=== PATIENT | male | born 1955 | race Caucasian/White ===

== ENCOUNTER 2025-03-04 02:55 | Inpatient (IN) | payer MEDICARE, OTHER, SELFPAY ==
[2025-03-04] VITALS (38 sets, daily range): BP systolic 148–189; BP diastolic 71–116; PULSE 80–101; RESP 14–31; TEMP 36.5–36.9; O2SAT 92–98; BMI 26.6
--- NOTE | ~2025-03-04 | CT_ITS ---
CTA chest PE protocol Ordering provider: Regina Reid APRN History: 69 years Male with . SOB, chest pain, elevated D-Dimer . Comparison: None. Technique: CT angiogram chest was performed following timed intravenous injection of contrast. Thin s lice axial images and reformatted coronal images were obtained. Three dimensional reformatted images of the chest were also obtained using a [employer] workstation. . Automated exposure control and iterati ve reconstruction technique were employed. The dose-length product was 987.51 mGy-cm. 100 mL Omnipaqu e 350 was given IV. Findings: PULMONARY ARTERIES: Lucencies seen in the right pulmonary artery subsegmental branches may be artifac tual but subsegmental thrombi cannot be excluded. Follow-up advised.. VISUALIZED THORACIC INLET: Normal. MEDIASTINUM: Aorta/coronary arteries: Mild atheromatous disease. Heart/other: The heart is not enlarged. Lymph nodes: Precarinal lymph nodes with the largest measures 1.3 cm. Right hilar lymph node is seen measuring 1.7 cm. LUNGS: Minimal atelectatic changes or focal pneumonia seen in the left upper lobe anteriorly and right lower lobe medially. Otherwise, No pulmonary nodules or masses. No effusions. No pneumothorax. VISUALIZED UPPER ABDOMEN: Large sliding hiatus hernia. Status post cholecystectomy. Otherwise, the vi sualized upper abdomen is normal. MUSCULOSKELETAL: Soft tissues: The superficial soft tissues are normal. Bones: Age appropriate degenerative changes of the spine. Old healed fractures seen in the left hemit horax. 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 IMPRESSION: 1. defects seen in the subsegmental branches in the right lower lobe area most likely artifacts. pu lmonary embolism cannot be excluded although this likely. 2. Focal areas of atelectasis versus pneumonia in the left upper lobe anteriorly and right lower lob e medially. 3. Large sliding hiatus hernia. Reviewed, dictated and finalized at location A. IMPRESSION: 1. defects seen in the subsegmental branches in the right lower lobe area mos t likely artifacts. pulmonary embolism cannot be excluded although this likely. 2. Focal areas of atelectasis versus pneumonia in the left upper lobe anterior ly and right lower lobe medially. 3. Large sliding hiatus hernia.
--- NOTE | ~2025-03-04 | US_ITS ---
EXAMINATION:US venous doppler LE BI INDICATION:Elevated d-dimer. Possible pulmonary embolism. TECHNIQUE: Multiple grayscale, color flow and Doppler images of the right and left lower extremity de ep venous systems were obtained and reviewed. COMPARISON:No prior studies for comparison. FINDINGS: The common femoral, superficial femoral and popliteal veins demonstrate normal respiratory variation, augmentation and compressibility. Color flow is also seen within the posterior tibial, pe roneal, greater saphenous and profunda veins. IMPRESSION: 1: No lower extremity deep venous thrombosis. Reviewed, dictated and finalized at location A.
--- NOTE | ~2025-03-04 | XR_ITS ---
CHEST RADIOGRAPH CLINICAL HISTORY: sob . COMPARISON: None available TECHNIQUE: Single portable view of the chest. FINDINGS The cardiomediastinal silhouette is unremarkable. The lungs are clear. IMPRESSION: No focal infiltrate or effusion. Reviewed, dictated and finalized at location A.
--- NOTE | 2025-03-04 03:02 | ECG_ITS ---
Test Date: 2025-03-04 02:59:48 Measurements Intervals [place] Rate: 83 P: 74 MD: 188 QRS: -22 QRSD: 128 T: 28 QT: 375 QTc: 442 Interpretive Statements SINUS RHYTHM SEPTAL MYOCARDIAL INFARCTION , OF INDETERMINATE AGE [40+ ms Q WAVE IN V1/V2] No previous ECG available for comparison Electronically Signed On 03-04-2025 15:00:58 CDT by Robert Escobar M.D.
[2025-03-04 03:20] LABS: Basophils Absolute Auto 0.1 K/mm3 (0.0-0.1); Basophils Percent Auto 1.2 % (0.2-1.2); Eosinophils Absolute Auto 0.4 K/mm3 (0-0.3); Eosinophils Percent Auto 6.7 % (0-4.4); Hematocrit 35.6 % (42.0-52.0); Hemoglobin 11.2 g/dL (14.0-18.0); Immature Granulocyte Absolute 0.04 K/mm3 (0.00-0.031); Immature Granulocyte Percent A 0.7 % (0-0.5); Lymphocytes Absolute Auto 0.55 K/mm3 (0.9-3.2); Lymphocytes Percent Auto 9.4 % (18.3-44.2); Mean Corpuscular HGB Conc 31.5 g/dl (32-36); Mean Corpuscular Hemoglobin 26.6 pg (26-34); Mean Corpuscular Volume 84.6 fl (80-100); Mean Platelet Volume 8.6 fl (7.4-10.4); Monocytes Percent Auto 16.2 % (2.6-8.5); Neutrophils Absolute Auto 3.9 K/mm3 (1.3-6.7); Neutrophils Percent Auto 65.8 % (45.5-73.1); Platelet Count Result 223 k/mm3 (150-375); Red Blood Count 4.21 M/mm3 (4.6-6.20); Red Cell Distribution Width 14.3 % (11.5-14.5); White Blood Count 5.9 K/mm3 (4.5-10.0)
[2025-03-04] MEDS: ASPIRIN 81 MG CHEWABLE TABLET 324 MG PO (03:25)
[2025-03-04 03:28] LABS: Alanine Aminotransferase 27 U/L (6-50); Alkaline Phosphatase 81 U/L (38-126); Anion Gap 3 mmol/L (4-12); Aspartate Amino Transferase 47 U/L (17-59); Bilirubin,Total 0.9 mg/dL (0.2-1.3); Blood Urea Nitrogen 14 mg/dL (9-20); Calcium 8.8 mg/dL (8.4-10.2); Carbon Dioxide 33 mmol/L (22-30); Chloride 99 mmol/L (98-107); Estimated CRCL calculation 112 ml/min; Estimated Glomerular Filt Rate > 60; Glucose 96 mg/dL (65-110); Lipase 136 U/L (23-300); Potassium 3.2 mmol/L (3.4-5.0); Sodium 135 mmol/L (137-145)
[2025-03-04 03:34] LABS: Partial Thromboplastin Time 25.5 Seconds (22.3-36.8); Prothrombin Time 14.1 Seconds (11.1-14.7)
[2025-03-04 03:40] LABS: Troponin I < 0.012 ng/mL (0.000-0.034)
[2025-03-04 03:54] LABS: Influenza A QL RT-PCR Negative (Negative); Influenza B QL RT-PCR Negative (Negative); RSV RNA, RT-PCR Negative (Negative); SARS-CoV-2 RNA PCR Negative (Negative)
--- NOTE | 2025-03-04 05:46 | PC.NURSE ---
Report received from IVETT Russo. Assumed care of patient at this time.
[2025-03-04 07:03] LABS: Troponin I < 0.012 ng/mL (0.000-0.034)
--- OUTSIDE RECORDS SUMMARY | 2025-03-04 07:33 | XMS_ITS | CONTINUITY OF CARE DOCUMENT ---
Author Name jed adkins Address Unknown Organization [facility] Address [address] [place] [address] Phone [phone] Care Team Providers Care Vessel Scrapper Helper Name Role Phone Madina RICE, Lakeshia Haro Unavailable ANATOLY RICE, ABIGAIL Unavailable Unavailable JUAN MIGUEL RICE, WENDY Martin Unavailable [phone] INSURANCE PROVIDERS Payer name Policy type / Coverage type [place] [employer] party ID [place] [employer] Medicare [id number] [employer] Other H [id number]
--- OUTSIDE RECORDS SUMMARY | 2025-03-04 07:33 | XMS_ITS | Clinical Summary ---
Author Organization [facility] Address [address] [place] [address] Care Team Providers Care Family Program Specialist Name Role Phone Chava Cruz MD Primary Care Provider [phone] Source Comments [facility],non-owned Affiliates and Associated Physician Practices is amultiple site organization consisting of ambulatory clinics and hospital sitesin [place], [place], [place] and [place]. This disclosure is being madepursuant to the Care Everywhere program and may not contain all information available regarding this patient. Last updated 18.[facility] Allergies No known active allergies Medications * Be aware that medications may not be up to date on this document. Alwaysverify current medications with the patient. lisinopril (PRINIVIL; ZESTRIL) 10 MG tablet Take 10 mg by mouth once daily Active pantoprazole EC (PROTONIX) 40 MG tablet Take 40 mg by mouth once daily Active budesonide-form oterol (SYMBICORT) 160-4.5 MCG/ACT inhalerIndicati ons:Asthma Inhale 2 puffs by mouth 2 times daily Reasons: Asthma Active umeclidinium (INCRUSE ELLIPTA) 62.5 MCG/INH inhalerIndicati ons:Chronic Obstructive Pulmonary Disease Inhale 1 puff by mouth once daily Reasons: Chronic Obstructive Lung Disease Active amLODIPine (NORVASC) 5 MG tablet Take 5 mg by mouth once daily Active oxyCODONE (OXY-IR) 5 MG capsule Take 1-2 capsules by mouth every 4 hours as needed for Pain 51 capsule 0 Active acetaminophen (TYLENOL) 500 MG tablet Take 2 tablets by mouth Every 6 Hours (03,09,15,21) Maximum allowable Acetaminophen amount = 4 Grams (4000 mg) / 24 hours. 0 Active bacitracin (BACITRACIN) 500 UNIT/GM ointment Apply to affected area 2 times daily 28 g 0 Active umeclidinium (INCRUSE ELLIPTA) 62.5 MCG/INH inhaler Take 62.5 Inhalers by mouth once daily Active Active Problems Problem Noted Date Diagnosed Date Respiratory insufficiency 07/09/2020 Acute pain 07/09/2020 Traumatic pneumothorax 07/07/2020 Multiple closed fractures of ribs of both sides 07/06/2020 Immunizations Immunization Administration Dates Next Due INFLUENZA VACCINE, HIGH-DOSE , QUADR. (FLUZONE HIGH-DOSE QUADRIVALENT; 65Y+), 0.7 ML (HD-IIV4) 07/07/2020 PNEUMOCOCCAL PPSV23 07/07/2020 Social History Tobacco Use Types Packs/Day Years Used Date Smoking Tobacco: Never Smokeless Tobacco: Never Alcohol Use Standard Drinks/Week Comments Yes 12 (1 standard drink = 0.6 oz pu re alcohol) Sex and Gender Information Value Date Recorded Sex Assigned at Not on file Legal Sex Male 2:36 AM CDT Gender Identity Not on file Sexual Orientation Not on file Last Filed Vital Signs Vital Sign Reading Time Taken Comments Blood Pressure 153/80 07/29/2020 2:46 PM CDT Pulse 87 07/29/2020 2:46 PM CDT Temperature 36.1 C (97 F) 07/29/2020 2:46 PM CDT Respiratory Rate 18 07/29/2020 2:46 PM CDT Oxygen Saturation 91% 07/29/2020 2:46 PM CDT Inhaled Oxygen Concentration 24% 07/11/2020 1 1:00 AM CDT Weight 96.2 kg (212 lb) 07/29/2020 2:46 PM CDT Height 188 cm (6' 2) 07/29/2020 2:46 PM CDT Body Mass Index 27.22 07/29/2020 2:46 PM CDT Plan of Treatment Health Maintenance Due Date Last Done Comments COLOGUARD (AGES 45-75) - COLON CA SCREENING 1953 COLON MONITORING 1953 COLONOSCOPY - COLON CA SCREENING 1953 CT COLONOGRAPHY - COLON CA SCREENING 1953 Colorectal Cancer Screening 1953 FIT - COLON CA SCREENING 1953 FLEX SIG - COLON CA SCREENING 1953 LIPID TESTING 1953 HEPATITIS C SCREENING 06/30/1971 DTAP/TDAP/TD VACCINES (1 - Tdap) 1972 ZOSTER VACCINE (1 of 2) 2003 PNEUMOCOCCAL VACCINE 50+ (2 of 2 - PCV) 07/07/2021 07/07/2020 SCREENING FOR DIABETES 07/06/2023 07/06/2020 COVID-19 VACCINE (1 - season) 2024 DEPRESSION SCREENING 10/10/2024 INFLUENZA VACCINE (Season Ended) 2025 07/07/2020, 07/12/2018, 07/25/2017, Additional history exists Respiratory Syncytial Virus (RSV) Vaccine Pt: or over 60 yrs (1 - 1-dose 75+ series) 2028 HEPATITIS B VACCINE Aged Out No longe r eligible based on patient's age to complete this topic HIB VACCINE Aged Out No longer eligi ble based on patient's age to complete this topic HPV VACCINE Aged Out No longer eligi ble based on patient's age to complete this topic MENINGOCOCCAL (Group B) VACCINE SHARED DECISION-MAKING Aged Out No longer eligible based on patient's age to complete this topic MENINGOCOCCAL GROUPS A/C/Y/W VACCINE Aged Out No longer eligible based on patient's age to complete this topic Procedures Procedure Name Priority Date/Time Associated Diagnosis Comments COMPREHENSIVE METABOLIC PANEL STAT 07/06/2020 3:30 AM CDT from Last 3 Months or Most Recently Relevant to Health Maintenance Results * (ABNORMAL) COMPREHENSIVE METABOLIC PANEL (07/06/2020 3:30 AM CDT) BUN 12 7 - 26 mg/dL 07/06/2020 4:45 AM CDT [facility] Creatinine 0.7 0.6 - 1.2 mg/dL 07/06/2020 4:45 AM CDT [facility] Sodium 135(L) 136 - 145 mmol/L 07/06/2020 4:45 AM CDT [facility] Potassium 4.4 3.5 - 4.5 mmol/L 07/06/2020 4:45 AM [facility] Comment:Hemolysis detected i n this specimen. Hemolysis is known to cause elevations in this analyte. Caution should be exercised in the interpretation of this result. Recommend repeat testing if clinically indicated. Chloride 99 98 - 107 mmol/L 07/06/2020 4:45 AM [facility] CO2 24 22 - 29 mmol/L 07/06/2020 4:45 AM [facility] Glucose 110 70 - 115 mg/dL 07/06/2020 4:45 AM [facility] Calcium 7.8(L) 8.4 - 10.2 mg/dL 07/06/2020 4:45 AM [facility] Protein Total 6.3 6.0 - 8.3 g/dL 07/06/2020 4:45 AM [facility] Comment:Hemolysis detected i n this specimen. Hemolysis is known to cause elevations in this analyte. Caution should be exercised in the interpretation of this result. Recommend repeat testing if clinically indicated. Albumin 3.7 3.4 - 5.0 g/dL 07/06/2020 4:45 AM [facility] Bilirubin Total 2.5(H) 0.2 - 1.2 mg/dL 07/06/2020 4:45 AM [facility] Alkaline Phosphatase 89 40 - 150 Units/L 07/06/2020 4:45 AM [facility] ALT 36 0 - 55 Units/L 07/06/2020 4:45 AM [facility] AST 61(H) 5 - 34 Units/L 07/06/2020 4:45 AM [facility] Comment:Hemolysis detected i n this specimen. Hemolysis is known to cause elevations in this analyte. Caution should be exercised in the interpretation of this result. Recommend repeat testing if clinically indicated. Anion Gap 16 8 - 18 07/06/2020 4:45 AM [facility] BUN/Creatinine Ratio 17 7 - 23 07/06/2020 4:45 AM [facility] Osmolality Calculated 280 270 - 300 mOsm/kg 07/06/2020 4:45 AM [facility] Albumin/Globulin Ratio 1.4 1.1 - 2.3 07/06/2020 4:45 AM [facility] eGFR >60 >60 mL/min/1. 73 m2 07/06/2020 4:45 AM CDT [facility] Blood BLOOD SPECIMEN / Unknown Venipuncture / Unknown 07/06/2020 3:30 AM CDT 07/06/2020 4:12 AM CDT Chidi Quezada MD LAB - CHEMISTRY ORDERABLES Final Result Performing Organization Address [facility]/State/ZIP Co de Phone Number [facility] [address] [place] [address], [facility] [phone] from Last 3 Months or Most Recently Relevant to Health Maintenance Insurance [employer] MEDICARE Advance Directives * Full Code (Latest Code Status on File) Date Activated Date Inactivated Comments 07/06/2020 11:20 AM 07/12/2020 2:07 PM Care Teams Family Program Specialist Relationship Specialty Start Date End Date Chava Cruz MD PCP - General Internal Medicine 07/06/20
--- OUTSIDE RECORDS SUMMARY | 2025-03-04 07:33 | XMS_ITS | Clinical Summary ---
Author Organization [facility] Address [address] [place] [address] Phone Care Team Providers Care Power Electronics Research Engineer Name Role Phone Chava Cruz MD Primary Care Provider Allergies No known active allergies Medications umeclidinium (INCRUSE ELLIPTA) 62.5 mcg/actuation Disk with Device Take 62.5 Inhalers by mouth. Active pantoprazole (PROTONIX) 40 mg Tablet, Delayed Release (E.C.) pantoprazole 40 mg tablet,delayed release Active lisinopril-hydr oCHLOROthiazide (ZESTORETIC) 20-25 mg tablet lisinopril 20 mg-hydrochloroth iazide 25 mg tablet Active amLODIPine (NORVASC) 5 mg tablet amlodipine 5 mg tablet Active budesonide-form oteroL (SYMBICORT) 160-4.5 mcg/actuation HFA Aerosol Inhaler Take 2 Puffs by inhalation. 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 Gender Identity Not on file Sexual Orientation Not on file Last Filed Vital Signs Vital Sign Reading Time Taken Comments Blood Pressure 163/89 09/17/2020 1:26 PM LEVERS LACE MACHINE OPERATOR Pulse 84 09/17/2020 1:26 PM LEVERS LACE MACHINE OPERATOR Temperature - - Respiratory Rate 18 09/17/2020 1:26 PM LEVERS LACE MACHINE OPERATOR Oxygen Saturation 95% 09/17/2020 1:26 PM LEVERS LACE MACHINE OPERATOR Inhaled Oxygen Concentration - - Weight 96.6 kg (213 lb) 09/15/2020 2:24 PM LEVERS LACE MACHINE OPERATOR Height 188 cm (6' 2) 09/15/2020 2:24 PM LEVERS LACE MACHINE OPERATOR Body Mass Index 27.35 09/15/2020 2:24 PM LEVERS LACE MACHINE OPERATOR Plan of Treatment Health Maintenance Due Date Last Done Comments DTAP/TDAP/TD VACCINES (1 - Tdap) 1972 COLORECTAL SCREENING 1998 Colorectal Cancer Screening 1998 FIT-DNA Q 3 years 1998 FIT/FOBT Q 1 year 1998 Flex Sig/CT Colonography Q 5 years 1998 ZOSTER VACCINE (1 of 2) 2003 RSV VACCINE (60+ or ) (1 - Risk 60-74 years 1-dose series) 2013 INFLUENZA VACCINE (#1) 2024 0, 07/12/2018, 07/25/2017, Additional history exists PNEUMOCOCCAL VACCINE 50+ YEARS Completed 1 11/17/2019, 07/07/2020, 08/16/2019 Insurance MEDICARE PART A AND B [facility] Care Teams Power Electronics Research Engineer Relationship Specialty Start Date End Date Chava Cruz MD [address] [place] [address] PCP - General Internal Medicine 09/15/20
--- NOTE | 2025-03-04 07:46 | ED.GENADULT ---
HPI - General Adult General Chief complaint: Shortness of Breath/Dyspnea Stated complaint: SOB x 2D/productive cough Time Seen by Provider: 03/04/25 06:56 History of Present Illness HPI narrative: 69-year-old male with history of asthma COPD with no history of smoking presents the ED for evaluation of worsening cough and congestion reminiscent of recent pneumonias. Patient states that in December he was diagnosed with COVID and pneumonia and was treated at [facility]. Patient states over the last 36 hours he has had worsening shortness of breath. At time of my evaluation patient does have increased workup breathing. patient denies any chest pain with this. Patient does report a remote history of pneumonia. Related Data Home Medications ?Medication ?Instructions ?Recorded ?Confirmed ?Last Taken ?Type albuterol sulfate 90 mcg/actuation 2 puff inhalation Q4-6H PRN 03/04/25 03/04/25 03/03/25 History aerosol inhaler shortness of breath or wheezing alfuzosin 10 mg tablet,extended 10 mg PO DAILY 03/04/25 03/04/25 03/03/25 History release 24 hr amlodipine 5 mg tablet 5 mg PO DAILY 03/04/25 03/04/25 03/03/25 History budesonide 160 mcg-glycopyr 9 2 inh inhalation BID 03/04/25 03/04/25 03/03/25 History mcg-formot 4.8 mcg/actuation HFA inhaler (Breztri Aerosphere) lisinopril 20 1 tablet PO BID 03/04/25 03/04/25 03/03/25 History mg-hydrochlorothiazide 25 mg tablet naproxen sodium 220 mg capsule 440 mg PO ONCE 03/04/25 03/04/25 03/03/25 History (Aleve) pantoprazole 40 mg tablet,delayed 40 mg PO DAILY 03/04/25 03/04/25 03/03/25 History release umeclidinium 62.5 mcg/actuation 1 inh inhalation DAILY 03/04/25 03/04/25 03/03/25 History blister powder for inhalation (Incruse Ellipta) Allergies Allergy/AdvReac Type Severity Reaction Status Date / Time No Known Allergies Allergy Verified 03/04/25 03:02 Review of Systems Review of Systems: All systems reviewed & are unremarkable except as noted in HPI and below PMFSH Past Medical History Medical History (Updated 03/04/25 @ 12:12 by Regina Reid, INSTRUCTIONAL MEDIA SERVICES TECHNICIAN) GERD (gastroesophageal reflux disease) Hypertension COPD (chronic obstructive pulmonary disease) Social History Social History Smoking status: Never smoker Second hand tobacco smoke exposure: No Alcohol intake: current Drinks per week: 10 Substance use: current Substance use type: does not use Do You Feel Safe in your Home?: Yes Lack of Transportation: No Lack of Food: Never True Current Housing: I Have Housing Concerned About Future Housing: No Difficulty Paying Gas/Electric Bills: No Difficulty Paying for Meds: No Currently Unemployed: No Education: Associate Degree Difficulty w/ Childcare or Family Care: No Spiritual care concerns: No Exam Narrative: APPEARANCE: Ill-appearing HEAD: normocephalic, atraumatic. EYES: PERRLA/EOMI, conjunctivae clear. NOSE: Normal no drainage EARS:TMS clear with good light reflex. THROAT: Pharynx clear, no exudate. NECK: Supple. No adenopathy, no masses. RESPIRATORY: Decreased lung sounds bilaterally with expiratory wheeze increased work of breathing CARDIOVASCULAR: Regular rate and rhythm without murmurs rubs or gallops. ABDOMINAL: Soft, nontender, nondistended, normal bowel sounds MUSCULOSKELETAL: Moves all extremities. Strength/ROM intact, No edema, No calf tenderness. NEURO: Alert. Cranial nerves II through XII intact. Good gait. Good coordination SKIN: Warm, dry. Normal Color Course Vital Signs Vital signs: Vital Signs Temperature 97.7 F 03/04/25 02:57 Pulse Rate 91 03/04/25 02:57 Respiratory Rate 28 H 03/04/25 02:57 Blood Pressure 189/93 H 03/04/25 02:57 Pulse Oximetry 98 03/04/25 02:57 Oxygen Delivery Room Air 03/04/25 02:57 Temperature 98.4 F 03/04/25 11:26 Pulse Rate 93 03/04/25 16:02 Respiratory Rate 18 03/04/25 13:26 Blood Pressure 152/87 H 03/04/25 11:26 Pulse Oximetry 95 03/04/25 13:20 Oxygen Delivery Room Air 03/04/25 13:20 Medical Decision Making MDM Narrative Medical decision making narrative: 69-year-old male presents emergency department for evaluation for worsening shortness of breath. Patient is afebrile with no leukocytosis hemoglobin 11.2. INR is 1.0. Patient does have a potassium of 3.2 with no other acute abnormalities on his CMP, patient's troponin is negative. Patient was negative for influenza RSV and for COVID. Patient did have increased expiratory wheeze and was treated with 5 mg of nebulized albuterol along with 125 mg of IV Solu-Medrol. Patient was treated with 5 mg of nebulized albuterol but this does significant wheeze. With the patient and he desaturated down to 87%. Patient states he prefers to be admitted. Patient will be treated with a 2nd dose albuterol. Patient does report some sputum production in morning but not necessarily increased over his baseline sputum production. Case was discussed with hospitalist blood cultures ordered and patient was started on Rocephin and doxycycline. Differential Diagnosis Differential Diagnosis: COVID, RSV, influenza, pneumonia, pneumothorax, COPD exacerbation Vital Signs Vital Signs: Vital Signs Temperature 97.7 F 03/04/25 02:57 Pulse Rate 91 03/04/25 02:57 Respiratory Rate 28 H 03/04/25 02:57 Blood Pressure 189/93 H 03/04/25 02:57 Pulse Oximetry 98 03/04/25 02:57 Oxygen Delivery Room Air 03/04/25 02:57 Temperature 98.4 F 03/04/25 11:26 Pulse Rate 93 03/04/25 16:02 Respiratory Rate 18 03/04/25 13:26 Blood Pressure 152/87 H 03/04/25 11:26 Pulse Oximetry 95 03/04/25 13:20 Oxygen Delivery Room Air 03/04/25 13:20 Lab Data Lab results reviewed: Yes I reviewed the patient's lab results. 03/04/25 03:09 03/04/25 03:09 Labs: Lab Results 03/04/25 03/04/25 Range/Units 03:09 06:20 WBC 5.9 (4.5-10.0) K/mm3 RBC 4.21 L (4.6-6.20) M/mm3 Hgb 11.2 L (14.0-18.0) g/dL Hct 35.6 L (42.0-52.0) % MCV 84.6 (80-100) fl MCH 26.6 (26-34) pg MCHC 31.5 L (32-36) g/dl RDW 14.3 (11.5-14.5) % Plt Count 223 (150-375) k/mm3 MPV 8.6 (7.4-10.4) fl Immature Gran % (Auto) 0.7 H (0-0.5) % Neut % (Auto) 65.8 (45.5-73.1) % Lymph % (Auto) 9.4 L (18.3-44.2) % [place] % (Auto) 16.2 H (2.6-8.5) % Eos % (Auto) 6.7 H (0-4.4) % Baso % (Auto) 1.2 (0.2-1.2) % Lymph # (Auto) 0.55 L (0.9-3.2) K/mm3 [place] # (Auto) 1.0 H (0.1-0.6) K/mm3 Eos # (Auto) 0.4 H (0-0.3) K/mm3 Baso # (Auto) 0.1 (0.0-0.1) K/mm3 Abs Immat Gran (auto) 0.04 H (0.00-0.031) K/mm3 Absolute Neuts (auto) 3.9 (1.3-6.7) K/mm3 Absolute Nucleated RBC 0.000 (0.0-0.012) K/mm3 Nucleated RBC % 0.0 (0.0-0.2) % PT 14.1 (11.1-14.7) Seconds INR 1.0 APTT 25.5 (22.3-36.8) Seconds Sodium 135 L (137-145) mmol/L Potassium 3.2 L (3.4-5.0) mmol/L Chloride 99 (98-107) mmol/L Carbon Dioxide 33 H (22-30) mmol/L Anion Gap 3 L (4-12) mmol/L BUN 14 (9-20) mg/dL Creatinine 0.60 L (0.7-1.3) mg/dL Estim Creat Clear Calc 112 ml/min Estimated GFR > 60 (59 - ) Glucose 96 (65-110) mg/dL Calcium 8.8 (8.4-10.2) mg/dL Total Bilirubin 0.9 (0.2-1.3) mg/dL AST 47 (17-59) U/L ALT 27 (6-50) U/L Alkaline Phosphatase 81 (38-126) U/L Troponin I < 0.012 < 0.012 (0.000-0.034) ng/mL Total Protein 7.0 (6.3-8.2) g/dL Albumin 4.0 (3.5-5.1) g/dL Lipase 136 (23-300) U/L Influenza A (RT-PCR) Negative (Negative) Influenza B (RT-PCR) Negative (Negative) RSV (RT-PCR) Negative (Negative) SARS-CoV-2 RNA (RT-PCR) Negative (Negative) Imaging Data Radiologist's impression: Impressions Chest X-Ray 03/04/25 08:55 IMPRESSION: No focal infiltrate or effusion. Discharge Plan Discharge Clinical Impression: COPD (chronic obstructive pulmonary disease), Hypoxia Patient Disposition: Still a Patient Condition: Serious
[2025-03-04] MEDS: ALBUTEROL SULFATE NEB 2.5 MG/3 ML INH 5 MG INHALATION ×2 (07:51→09:58)
[2025-03-04] MEDS: methylPREDNISolone SOD SUCC 125 MG VIAL IV PUSH (08:11)
--- NOTE | 2025-03-04 08:17 | PC.NURSE ---
Pt requesting something to drink. EDP made aware. Dr. Gar states pt can drink water, water provided.
--- NOTE | 2025-03-04 09:56 | PC.NURSE ---
Ambulated pt with walking pulse ox per EDP. Pt ambulated around nurses station without complaints. Pt repositioned back into bed and oxygen decreased to high 80s. Pt repositioned to sit back up in bed, take deep breaths and oxygen increased to low 90s. made aware. Pt now resting comfortably in bed, oxygen saturation 93% room air.
--- NOTE | 2025-03-04 10:23 | P.HP_ITS ---
H&P: HPI History of Present Illness Date/Time: 03/04/25 10:23 Chief Complaint: SOB Narrative: Patient is a 69-year-old male who presented to the emergency department with complaints of worsening shortness of breath per patient he had been hospitalized due to COVID pneumonia back in December of 2024. Patient reports he does have a history of COPD/asthma but is a non smoker. Patient reports his shortness of breath began about 36 hours prior to arrival and is continue to worsen he attempted to use his inhaler every 4 hours with minimal relief. Patient reports he worked in a [employer] and was exposed to secondhand smoke for over 20 years. Patient denied CP, N/V, dizziness, but endorses SOB worse with any activity or exertion. patient reports a past medical history of hypertension, adult onset asthma, and GERD. labs were fairly unremarkable except for hypokalemia at 3.2, CXR with no acute cardiopulmonary. Per emergency department patient did have episode of hypoxia, he was administered DuoNebs and IV methylprednisone and admitted to the medical unit for COPD exacerbation, lung COVID with consult to pulmonology. Review of Systems Review of Systems: All systems reviewed & are unremarkable except as noted in HPI and below PMFSH Past Medical History Medical History (Updated 03/04/25 @ 12:12 by Regina Reid, PAIL TESTER) GERD (gastroesophageal reflux disease) Hypertension COPD (chronic obstructive pulmonary disease) Social History Social History Smoking status: Never smoker Second hand tobacco smoke exposure: No Alcohol intake: current Drinks per week: 10 Substance use: current Substance use type: does not use Do You Feel Safe in your Home?: Yes Lack of Transportation: No Lack of Food: Never True Current Housing: I Have Housing Concerned About Future Housing: No Difficulty Paying Gas/Electric Bills: No Difficulty Paying for Meds: No Currently Unemployed: No Education: Associate Degree Difficulty w/ Childcare or Family Care: No Spiritual care concerns: No Meds Home Medications and Allergies Home Medications ?Medication ?Instructions ?Recorded ?Confirmed ?Type albuterol sulfate 90 mcg/actuation 2 puff inhalation Q4-6H PRN 03/04/25 03/04/25 History aerosol inhaler shortness of breath or wheezing alfuzosin 10 mg tablet,extended 10 mg PO DAILY 03/04/25 03/04/25 History release 24 hr amlodipine 5 mg tablet 5 mg PO DAILY 03/04/25 03/04/25 History budesonide 160 mcg-glycopyr 9 2 inh inhalation BID 03/04/25 03/04/25 History mcg-formot 4.8 mcg/actuation HFA inhaler (Breztri Aerosphere) lisinopril 20 1 tablet PO BID 03/04/25 03/04/25 History mg-hydrochlorothiazide 25 mg tablet naproxen sodium 220 mg capsule 440 mg PO ONCE 03/04/25 03/04/25 History (Aleve) pantoprazole 40 mg tablet,delayed 40 mg PO DAILY 03/04/25 03/04/25 History release umeclidinium 62.5 mcg/actuation 1 inh inhalation DAILY 03/04/25 03/04/25 History blister powder for inhalation (Incruse Ellipta) Allergies Allergy/AdvReac Type Severity Reaction Status Date / Time No Known Allergies Allergy Verified 03/04/25 03:02 Vital Signs Vital Signs - 24 hr 03/04/25 02:57 03/04/25 02:57 03/04/25 02:57 Temperature 97.7 F Pulse Rate 91 87 Respiratory Rate 28 H Blood Pressure 189/93 H Pulse Oximetry 98 97 Oxygen Delivery Room Air Room Air 03/04/25 03:16 03/04/25 03:17 03/04/25 03:30 Temperature Pulse Rate 85 91 86 Respiratory Rate 19 17 15 Blood Pressure 169/92 H Pulse Oximetry 96 96 95 Oxygen Delivery 03/04/25 03:31 03/04/25 03:45 03/04/25 03:46 Temperature Pulse Rate 86 90 87 Respiratory Rate 18 20 23 H Blood Pressure 177/116 H 170/93 H Pulse Oximetry 96 95 95 Oxygen Delivery 03/04/25 04:00 03/04/25 04:01 03/04/25 04:15 Temperature Pulse Rate 85 80 81 Respiratory Rate 19 26 H 17 Blood Pressure 169/88 H Pulse Oximetry 97 98 95 Oxygen Delivery 03/04/25 04:16 03/04/25 04:30 03/04/25 04:31 Temperature Pulse Rate 81 87 83 Respiratory Rate 19 19 16 Blood Pressure 177/92 H 155/92 H Pulse Oximetry 95 96 96 Oxygen Delivery 03/04/25 04:45 03/04/25 04:46 03/04/25 05:00 Temperature Pulse Rate 92 89 82 Respiratory Rate 19 21 H 21 H Blood Pressure 177/72 H Pulse Oximetry 93 94 97 Oxygen Delivery 03/04/25 05:15 03/04/25 05:16 03/04/25 05:17 Temperature Pulse Rate 86 86 86 Respiratory Rate 14 22 H 23 H Blood Pressure 175/87 H Pulse Oximetry 96 95 97 Oxygen Delivery 03/04/25 07:00 03/04/25 07:04 03/04/25 07:52 Temperature Pulse Rate 96 91 90 Respiratory Rate 31 H 18 18 Blood Pressure 153/81 H Pulse Oximetry 96 Oxygen Delivery 03/04/25 08:05 03/04/25 08:11 03/04/25 09:55 Temperature Pulse Rate 85 98 89 Respiratory Rate 21 H 17 22 H Blood Pressure 167/76 H 154/77 H Pulse Oximetry 94 93 Oxygen Delivery 03/04/25 09:58 03/04/25 10:09 Temperature Pulse Rate 91 97 Respiratory Rate 18 16 Blood Pressure Pulse Oximetry Oxygen Delivery Exam Const: General: comfortable and no acute distress Other: Pleasant male in no distress HENMT: Ears: TM's normal bilaterally Face/Nose/Sinus: Normal nares present Mouth: Yes moist mucous membranes Eyes: General: appearance normal, both eyes and all related structures Sclera: sclerae normal Pupils: Equal, round and reactive pupils present Neck: Neck: supple and no JVD Resp: Auscultation: rhonchi throughout and wheezes scattered wheezes Other: Tachypnea, shallow inspiration Cardio: Rate: regular rate Rhythm: regular rhythm GI: GI Palp: Yes Soft to palpation Auscultation: normal bowel sounds Skin: General skin exam: normal color and no rashes or lesions noted Wounds: no wounds Neuro: General: gait normal Speech: normal speech Motor exam (neuro): 5/5 motor strength present throughout Sensory Exam: normal sensation Extrem: General: normal to inspection Psych: Mental Status: mental status grossly normal Affect: normal affect H&P: Results Labs Labs: Short CBC 03/04/25 Range/Units 03:09 WBC 5.9 (4.5-10.0) K/mm3 Hgb 11.2 L (14.0-18.0) g/dL Hct 35.6 L (42.0-52.0) % Plt Count 223 (150-375) k/mm3 [facility] 03/04/25 03:09 Sodium 135 L Potassium 3.2 L Chloride 99 Carbon Dioxide 33 H BUN 14 Creatinine 0.60 L Glucose 96 Calcium 8.8 Cardiac Enzymes 03/04/25 03/04/25 Range/Units 03:09 06:20 Troponin I < 0.012 < 0.012 (0.000-0.034) ng/mL Liver Function 03/04/25 Range/Units 03:09 Total Bilirubin 0.9 (0.2-1.3) mg/dL AST 47 (17-59) U/L ALT 27 (6-50) U/L Alkaline Phosphatase 81 (38-126) U/L Albumin 4.0 (3.5-5.1) g/dL Assessment and Plan Assessment and plan (1) COPD (chronic obstructive pulmonary disease): Code(s): J44.9 - Chronic obstructive pulmonary disease, unspecified Status: Acute Assessment and Plan: patient with history of adult onset asthma recently hospitalization in December for COVID pneumonia presented with worsening shortness of breath and had an episode of hypoxia in the emergency department was admitted for treatment of COPD exacerbation. patient reports 30 years of working in a satisfactory and around 20 years secondhand smoke exposure. DDIMER ordered pending results will get CTA or CT chest for further evaluation. * Bronchodilators. * Chest x-ray no acute cardiopulmonary * incentive spirometry while awake. * steroids IV 60mg x 24hrs then transition to PO 40mg daily * azithromycin 500 x 1 day/250 daily and ceftriaxone * guaifenesin * Consult to Pulmonology appreciate further recommendations * PFT testing recommended * Echo pending * supplemental oxygen therapy to maintain oxygen 92% * May need home o2 evaluation to assess if patient needs oxygen with activity on room air at rest (2) COVID-19 yayo vaca: Code(s): U09.9 - Post COVID-19 condition, unspecified Status: Acute Assessment and Plan: SEE Above recent COVID pneumonia 12/2024. * COVID/influenza/RSV negative (3) Hypokalemia: Code(s): E87.6 - Hypokalemia Status: Acute Assessment and Plan: Potassium 3.1 POA * replenished with 40 mEq * monitoring replenish as needed * on continuous cardiac monitoring (4) Hypertension: Code(s): I10 - Essential (primary) hypertension Status: Acute Assessment and Plan: * discontinued patient's home blood pressure medication amlodipine, lisinopril and hydrochlorothiazide and switch to nifedipine 30 mg * Will increase as needed * BP per unit protocol (5) GERD (gastroesophageal reflux disease): Code(s): K21.9 - Gastro-esophageal reflux disease without esophagitis Status: Acute Assessment and Plan: * continue pantoprazole Plan Code status: Full code per patient DVT prophylaxis: Lovenox Stress ulcer prophylaxis: Protonix 40 daily PT/OT notes: ambulatory Disposition: Patient admitted to the medical unit for COPD exacerbation and possible long COVID consult to pulmonology had the for any further recommendations will continue with current treatment evaluate following day plan will be for patient to return home when medically stable. Quality VTE Prophylaxis VTE prophylaxis: pharmacologic ordered -Patient's previous records reviewed on admission -ER notes reviewed in detail on admission -discussed all findings and current treatment plan with patient/Family/POA -Consultations reviewed for recommendations -Patient's disposition for safe discharge discussed with case maker Dictation performed by [email or web address] direct speech recognition software, therefore health counselor variants and typographical errors may occur. Hospitalist MIPS Advance Care Plan I have confirmed that the patient's Advanced Care Plan is present, code status is documented, or surrogate decision maker is listed in patient medical record.: Yes Medication Reconciliation I have utilized all available resources to obtain, update and review the patients current medications (includes all prescriptions, OTC, herbals, cannabis, and nutritional supplements).: Yes The patient is not eligible for med reconciliation; the patient is in a emergent medical situation where delaying treatment would jeopardize the patients health.: No
[2025-03-04] MEDS: POTASSIUM CHLORIDE 20 MEQ ER TABLET 40 MEQ PO (10:41)
--- NOTE | 2025-03-04 11:12 | ADMGEN ---
This patient, Joshua Wilkinson, was admitted to 2 Medical Room 240-. Patient/family oriented to hospital policies and general routines including ID bracelet, bed and alarms, visiting hours, pain management, procedures, bathroom and other care routines, personal items, smoking policy, room service/diet, and visiting hours. Information on how to activate the Rapid Response Team has been discussed. Patient/Family are encouraged to report perceived risks to care and to ask questions if they do not understand what they are told or what they should do.
[2025-03-04] MEDS: AZITHROMYCIN 250 MG TABLET 500 MG PO (12:14)
[2025-03-04] MEDS: methylPREDNISolone SOD SUCC 125 MG VIAL 60 MG IV PUSH ×3 (12:14→23:25)
[2025-03-04 12:30] LABS: Troponin I < 0.012 ng/mL (0.000-0.034)
[2025-03-04 12:31] LABS: D Dimer 0.61 ug/mL (<0.48)
[2025-03-04] MEDS: ALBUTEROL SULFATE NEB 2.5 MG/3 ML INH INHALATION ×2 (13:20→19:03)
[2025-03-04] MEDS: NIFEdipine 30 MG TAB.ER.24 PO (14:47)
[2025-03-04] MEDS: guaiFENesin 12 HR 600 MG TABCR 1200 MG PO (20:23)
[2025-03-05] VITALS (19 sets, daily range): BP systolic 132–147; BP diastolic 68–72; PULSE 65–103; RESP 17–20; TEMP 36.6–36.8; O2SAT 93–97
--- NOTE | 2025-03-05 | ECHO_ITS ---
Patient Info Name: Joshua Wilkinson Age: 69 years : 1955 Gender: Male Ht: 73 in Wt: 202 lbs BSA: 2.18 m2 HR: 95 bpm BP: 137 / 68 mmHg Technical Quality: Good Exam Date: 03/05/2025 9:44 AM Patient Status: I Admit Date: 03/05/2025 Exam Type: CA echo doppler color flow Complete two-dimensional, color flow and Doppler transthoracic echocardiogram is performed. Staff Referring Physician: Regina Reid Sanitation Worker: Natacha Ny Attending Provider: Heber Cantu Summary 1. Left ventricular chamber dimension is normal. 2. Left ventricular systolic function is normal, estimated at >70. 3. There is mildly increased left ventricular wall thickness. 4. The left ventricular diastolic function is grade I diastolic dysfunction. 5. Right ventricular systolic function is normal. 6. There is mild tricuspid valve regurgitation. Left Ventricle Left ventricular chamber dimension is normal. Left ventricular systolic function is normal, estimated at >70. There is mildly increased left ventricular wall thickness. The left ventricular diastolic function is grade I diastolic dysfunction. Right Ventricle Right ventricular chamber dimension is normal. Right ventricular systolic function is normal. Left Atria Left atrial chamber dimension is normal. Right Atria Right atrial chamber dimension is normal. Atrial Septum Intact interatrial septum visualized by color flow imaging. Aortic Valve The aortic valve is trileaflet. There is no aortic valve stenosis. There is no aortic valve regurgitation. Pulmonic Valve The pulmonic valve is not well visualized. Mitral Valve There is trace mitral valve regurgitation. Tricuspid Valve There is mild tricuspid valve regurgitation. Pericardium/Pleural The pericardium appears epicardial fat pad. There is no pericardial effusion. Inferior Vena Cava Normal inferior vena cava with >50% collapse upon inspiration consistent with normal right atrial pressure, 3 mmHg. Aorta The aortic root size at the sinus of Valsalva is normal. Left Ventricular Outflow Tract Name Value Normal LVOT 2D LVOT Diameter 2.3 cm LVOT Doppler LVOT Peak Velocity 114 cm/s LVOT Peak Gradient 5 mmHg LVOT Mean Gradient 4 mmHg LVOT VTI 27 cm LVOT VTI/AV VTI Ratio 1.1 LVOT Stroke Volume 110 ml LVOT CO 22.9 l/min LVOT CI 10.5 l/min/m2 Pulmonic Valve Name Value Normal PV Doppler PV Peak Velocity 144 cm/s PV Peak Gradient 8 mmHg Mitral Valve Name Value Normal MV Diastolic Function MV E Peak Velocity 88 cm/s MV A Peak Velocity 112 cm/s MV E/A 0.8 MV Decel Time (PW) 165 ms MV Annular TDI MV E/e' (Septal) 8.4 MV E/e' (Lateral) 8.1 MV E/e' (Average) 8.3 Tricuspid Valve Name Value Normal TV Regurgitation Doppler TR Peak Velocity 313 cm/s TR Peak Gradient 23 mmHg Estimated PAP/RSVP RA Pressure 3 mmHg <=5 PA Systolic Pressure 42 mmHg <36 RV Systolic Pressure 42 mmHg <36 TV Annular TDI TV Lateral Jacqueline s' Velocity 20.4 cm/s >=9.5 Aorta Name Value Normal Ascending Aorta Ao Root Diameter (MM) 3.5 cm Ao Root Diam Index (MM) 1.6 cm/m2 Aortic Valve Name Value Normal AV Doppler AV Peak Velocity 137 cm/s AV Peak Gradient 7 mmHg AV Mean Gradient 5 mmHg AV VTI 25 cm AV Area (Cont Eq VTI) 4.5 cm2 >=3.0 AV Area (Cont Eq Seymour) 3.5 cm2 AV DI (Seymour) 0.84 AV Regurgitation 2D LVOT Area 4.1 cm2 Ventricles Name Value Normal LV Dimensions 2D/MM IVS Diastolic Thickness (2D) 1.3 cm 0.6-1.0 LVID Diastole (2D) 4.3 cm 4.2-5.8 LVIW Diastolic Thickness (2D) 1.2 cm 0.6-1.0 LVID Systole (2D) 3.0 cm 2.5-4.0 LVOT Diameter 2.3 cm LV Mass (2D Cubed) 193.39 g 88.00-224.00 LV Mass Index (2D Cubed) 89 g/m2 49-115 Relative Wall Thickness (2D) 0.56 <=0.42 LV Fractional Shortening/Ejection Fraction 2D/MM LV Fractional Shortening (2D) 30 % 25-43 LV EF (2D Teichholz) 57 % LV Diastolic Volume (4C MOD) 149 ml LV EF (4C MOD) 73 % LV Diastolic Volume (2C MOD) 115 ml LV EF (2C MOD) 72 % LV Diastolic Volume (BP MOD) 131 ml 62-150 LV Diastolic Volume Index (BP MOD) 60 ml/m2 34-74 LV Systolic Volume (BP MOD) 36 ml 21-61 LV Systolic Volume Index (BP MOD) 16 ml/m2 11-31 LV EF (BP MOD) 73 % 52-72 LV Diastolic Length (4C) 8.9 cm LV Systolic Length (4C) 7.1 cm LV Stroke Volume (4C MOD) 109 ml RV Dimensions 2D/MM RVID Diastole (2D) 5.1 cm 2.1-3.5 Atria Name Value Normal LA Dimensions LA Dimension (MM) 3.8 cm 3.0-4.0 LA Volume (4C A-L) 71 ml LA Volume (BP A-L) 83 ml RA Dimensions RA Systolic Major [place] Length (4C) 5.1 cm 2.1-2.7 RA Area (4C) 19.3 cm2 <=18.0 Report Signatures
[2025-03-05] MEDS: ALBUTEROL SULFATE NEB 2.5 MG/3 ML INH INHALATION ×4 (01:37→20:56)
[2025-03-05] MEDS: methylPREDNISolone SOD SUCC 125 MG VIAL 60 MG IV PUSH ×3 (05:15→17:38)
[2025-03-05 05:56] LABS: Hematocrit 33.7 % (42.0-52.0); Hemoglobin 10.8 g/dL (14.0-18.0); Immature Granulocyte Absolute 0.03 K/mm3 (0.00-0.031); Immature Granulocyte Percent A 0.5 % (0-0.5); Lymphocytes Percent Auto 5.2 % (18.3-44.2); Mean Corpuscular Hemoglobin 26.9 pg (26-34); Mean Corpuscular Volume 83.8 fl (80-100); Mean Platelet Volume 9.4 fl (7.4-10.4); Monocytes Absolute Auto 0.3 K/mm3 (0.1-0.6); Monocytes Percent Auto 5.4 % (2.6-8.5); Neutrophils Absolute Auto 5.1 K/mm3 (1.3-6.7); Neutrophils Percent Auto 88.9 % (45.5-73.1); Platelet Count Result 232 k/mm3 (150-375); Red Blood Count 4.02 M/mm3 (4.6-6.20); Red Cell Distribution Width 14.3 % (11.5-14.5); White Blood Count 5.7 K/mm3 (4.5-10.0)
[2025-03-05 06:13] LABS: Alanine Aminotransferase 28 U/L (6-50); Albumin Level 3.6 g/dL (3.5-5.1); Alkaline Phosphatase 69 U/L (38-126); Anion Gap 6 mmol/L (4-12); Aspartate Amino Transferase 38 U/L (17-59); Bilirubin,Total 0.7 mg/dL (0.2-1.3); Blood Urea Nitrogen 18 mg/dL (9-20); Calcium 8.4 mg/dL (8.4-10.2); Carbon Dioxide 28 mmol/L (22-30); Chloride 97 mmol/L (98-107); Estimated CRCL calculation 115 ml/min; Estimated Glomerular Filt Rate > 60; Glucose 172 mg/dL (65-110); Potassium 3.6 mmol/L (3.4-5.0); Sodium 131 mmol/L (137-145)
[2025-03-05] MEDS: AZITHROMYCIN 250 MG TABLET 500 MG PO (09:13)
[2025-03-05] MEDS: guaiFENesin 12 HR 600 MG TABCR 1200 MG PO ×2 (09:14→21:41)
[2025-03-05] MEDS: ENOXAPARIN 40 MG/0.4 ML SYRINGE SUB-Q (09:14)
[2025-03-05] MEDS: NIFEdipine 30 MG TAB.ER.24 PO (09:14)
[2025-03-05] MEDS: PANTOPRAZOLE 40 MG TABLET PO (09:14)
[2025-03-05] MEDS: APIXABAN 5 MG TABLET 10 MG PO ×2 (12:02→21:41)
--- NOTE | 2025-03-05 12:46 | P.PNIM_ITS ---
Progress Note: A&P Assessment and Plan (1) COPD (chronic obstructive pulmonary disease): Code(s): J44.9 - Chronic obstructive pulmonary disease, unspecified Status: Acute Assessment and Plan: patient with history of adult onset asthma recently hospitalization in December for COVID pneumonia presented with worsening shortness of breath and had an episode of hypoxia in the emergency department was admitted for treatment of COPD exacerbation. patient reports 30 years of working in a satisfactory and around 20 years secondhand smoke exposure. CTA indeterminate on PE * Bronchodilators. * Chest x-ray no acute cardiopulmonary * incentive spirometry while awake. * steroids IV 60mg * azithromycin 500 x 1 day/250 daily and ceftriaxone * guaifenesin * Consult to Pulmonology appreciate further recommendations * PFT testing recommended * Echo pending * supplemental oxygen therapy to maintain oxygen 92% * May need home o2 evaluation to assess if patient needs oxygen with activity on room air at rest (2) COVID-19 yayo vaca: Code(s): U09.9 - Post COVID-19 condition, unspecified Status: Acute Assessment and Plan: SEE Above recent COVID pneumonia 12/2024. * COVID/influenza/RSV negative (3) D-dimer, elevated: Code(s): R79.89 - Other specified abnormal findings of blood chemistry Status: Acute Assessment and Plan: CTA defects seen in the subsegmental branches in the right lower lobe area most likely artifacts. pulmonary embolism cannot be excluded although this likely. * Started on Eliquis 10mg BID x 7 days to treat since indeterminate reading * Repeat CTA tomorrow * Venous dopplers ordered (4) Hypokalemia: Code(s): E87.6 - Hypokalemia Status: Acute Assessment and Plan: Potassium 3.1 POA * replenished with 40 mEq * monitoring replenish as needed * on continuous cardiac monitoring (5) Hypertension: Code(s): I10 - Essential (primary) hypertension Status: Acute Assessment and Plan: * discontinued patient's home blood pressure medication amlodipine, lisinopril and hydrochlorothiazide and switch to nifedipine 30 mg * Will increase as needed * BP per unit protocol (6) GERD (gastroesophageal reflux disease): Code(s): K21.9 - Gastro-esophageal reflux disease without esophagitis Status: Acute Assessment and Plan: * continue pantoprazole Plan Code status: Full code per patient DVT prophylaxis: Lovenox Stress ulcer prophylaxis: Protonix 40 daily PT/OT notes: ambulatory Disposition: Patient admitted to the medical unit for COPD exacerbation and possible long COVID consult to pulmonology had the for any further recommendations will continue with current treatment evaluate following day plan will be for patient to return home when medically stable. Time Spent With Patient Time with patient: 15 - 25 minutes Subjective Date/time seen: 03/05/25 12:46 Interval history: Patient is a 69 year old male admitted for further evaluation of COPD exacerbation and long COVID due to worsening SOB. 03/05/2025: Patient stated he had difficult time doing any of his minimal ADLS today and it was taking longer then normal for his respiratory status to recover. Patient denied CP, bu had noticeable shallow respirations. CTA was indeterminate on PE will treat now and repeat CTA. Review of Systems Review of Systems: All systems reviewed & are unremarkable except as noted in HPI and below Exam Const: General: comfortable and no acute distress Other: Pleasant male in no distress HENMT: Ears: TM's normal bilaterally Face/Nose/Sinus: Normal nares present Mouth: Yes moist mucous membranes Eyes: General: appearance normal, both eyes and all related structures Scle ra: sclerae normal Pupils: Equal, round and reactive pupils present Neck: Neck: supple and no JVD Resp: Auscultation: wheezes scattered wheezes and diminished lung sounds Other: Tachypnea, shallow inspiration Cardio: Rate: regular rate Rhythm: regular rhythm GI: Auscultation: normal bowel sounds Skin: General skin exam: normal color and no rashes or lesions noted Wounds: no wounds Neuro: General: gait normal Cranial nerves: Yes Equal, round and reactive pupils present Speech: normal speech Motor exam (neuro): 5/5 motor strength present throughout Sensory Exam: normal sensation Extrem: General: normal to inspection Psych: Mental Status: mental status grossly normal Affect: normal affect Objective Data Vital Signs Vital Signs: Vital Signs - 24 hr 03/04/25 13:20 03/04/25 13:21 03/04/25 13:26 Temperature Pulse Rate 97 95 Respiratory Rate 18 18 Blood Pressure Pulse Oximetry 95 Oxygen Delivery Room Air Fraction of Inspired Oxygen 03/04/25 16:02 03/04/25 19:03 03/04/25 19:05 Temperature Pulse Rate 93 87 87 Respiratory Rate 20 20 Blood Pressure Pulse Oximetry 97 Oxygen Delivery Room Air Fraction of Inspired Oxygen 21 03/04/25 19:18 03/04/25 19:36 03/04/25 20:00 Temperature 98.0 F Pulse Rate 90 99 101 H Respiratory Rate 20 17 Blood Pressure 148/71 H Pulse Oximetry 94 Oxygen Delivery Fraction of Inspired Oxygen 03/05/25 00:00 03/05/25 01:38 03/05/25 01:39 Temperature Pulse Rate 88 65 Respiratory Rate 20 Blood Pressure Pulse Oximetry 94 Oxygen Delivery Room Air Fraction of Inspired Oxygen 21 03/05/25 02:01 03/05/25 04:00 03/05/25 05:21 Temperature 98.1 F Pulse Rate 75 92 86 Respiratory Rate 20 17 Blood Pressure 137/68 Pulse Oximetry 93 Oxygen Delivery Fraction of Inspired Oxygen 03/05/25 07:35 03/05/25 07:44 03/05/25 08:00 Temperature Pulse Rate 84 88 97 Respiratory Rate 20 20 Blood Pressure Pulse Oximetry Oxygen Delivery Fraction of Inspired Oxygen 03/05/25 09:30 Temperature Pulse Rate Respiratory Rate Blood Pressure Pulse Oximetry Oxygen Delivery Room Air Fraction of Inspired Oxygen Intake/Output Intake/Output: Intake & Output 03/02/25 03/03/25 03/04/25 03/05/25 23:59 23:59 23:59 23:59 Intake Total 1580 740 Output Total 1200 300 Balance 380 440 Meds/Results Medications: Active Medications Generic Name Dose Route Start Last Admin Trade Name Freq PRN Reason Stop Dose Admin Acetaminophen 650 mg 03/04/25 10:22 Acetaminophen 325 Mg Tablet PO Q4H PRN Mild Pain (1-3) or Fever Albuterol 2.5 mg 03/04/25 14:00 03/05/25 07:37 Albuterol Sulfate Neb 2.5 Mg/3 Ml Inh INHALATION 2.5 mg Q6HRT MIRLANDE Administration Apixaban 10 mg 03/05/25 12:00 03/05/25 12:02 Apixaban 5 Mg Tablet PO 03/11/25 21:01 10 mg Q12HR MIRLANDE Administration Azithromycin 500 mg 03/04/25 12:00 03/05/25 09:13 Azithromycin 250 Mg Tablet PO 03/08/25 09:01 500 mg DAILY MIRLANDE Administration Guaifenesin 1,200 mg 03/04/25 21:00 03/05/25 09:14 Guaifenesin 12 Hr 600 Mg Tabcr PO 1,200 mg Q12HR MIRLANDE Administration Methylprednisolone Sodium Succinate 60 mg 03/04/25 12:00 03/05/25 12:02 Methylprednisolone Sod Succ 125 Mg Vial IV PUSH 60 mg Q6HR MIRLANDE Administration Nifedipine 30 mg 03/04/25 12:20 03/05/25 09:14 Nifedipine 30 Mg Tab.Er.24 PO 30 mg QAM MIRLANDE Administration Ondansetron HCl 4 mg 03/04/25 10:22 Ondansetron Inj 4 Mg/2 Ml Vial IV PUSH Q6H PRN Nausea And Vomiting Pantoprazole Sodium 40 mg 03/05/25 09:00 03/05/25 09:14 Pantoprazole 40 Mg Tablet PO 40 mg DAILY MIRLANDE Administration Perflutren Lipid Microsphere 0 ml 03/04/25 12:03 Perflutren Lipid Microspheres 1.5 Ml Vial Diluted To 10 Ml Total Volume IV PUSH 03/07/25 12:04 ONCE PRN adequate visualization Protocol Radiology Results: ITS Impressions Chest X-Ray 03/04/25 08:55 IMPRESSION: No focal infiltrate or effusion. Chest CTA 03/04/25 16:22 IMPRESSION: 1. defects seen in the subsegmental branches in the right lower lobe area most likely artifacts. pulmonary embolism cannot be excluded although this likely. 2. Focal areas of atelectasis versus pneumonia in the left upper lobe anteriorly and right lower lobe medially. 3. Large sliding hiatus hernia. Labs Labs: Laboratory Results - last 24 hr 03/05/25 03/05/25 04:55 04:55 WBC 5.7 RBC 4.02 L Hgb 10.8 L Hct 33.7 L MCV 83.8 MCH 26.9 MCHC 32.0 RDW 14.3 Plt Count 232 MPV 9.4 Immature Gran % (Auto) 0.5 Neut % (Auto) 88.9 H Lymph % (Auto) 5.2 L Kane % (Auto) 5.4 Eos % (Auto) 0.0 Baso % (Auto) 0.0 L Lymph # (Auto) 0.30 L Kane # (Auto) 0.3 Eos # (Auto) 0.0 Baso # (Auto) 0.0 Abs Immat Gran (auto) 0.03 Absolute Neuts (auto) 5.1 Absolute Nucleated RBC 0.000 Nucleated RBC % 0.0 Sodium 131 L Potassium 3.6 4.0 Chloride 97 L Carbon Dioxide 28 Anion Gap 6 BUN 18 Creatinine 0.56 L Estim Creat Clear Calc 115 Estimated GFR > 60 Glucose 172 H Calcium 8.4 Total Bilirubin 0.7 AST 38 ALT 28 Alkaline Phosphatase 69 Total Protein 6.0 L Albumin 3.6 Quality VTE Prophylaxis VTE prophylaxis: pharmacologic ordered -Patient's previous records reviewed on admission -ER notes reviewed in detail on admission -discussed all findings and current treatment plan with patient/Family/POA -Consultations reviewed for recommendations -Patient's disposition for safe discharge discussed with shoe caser Dictation performed by [employer] direct speech recognition software, therefore salon/spa manager variants and typographical errors may occur. Hospitalist MIPS Advance Care Plan I have confirmed that the patient's Advanced Care Plan is present, code status is documented, or surrogate decision maker is listed in patient medical record.: Yes Medication Reconciliation I have utilized all available resources to obtain, update and review the patients current medications (includes all prescriptions, OTC, herbals, cannabis, and nutritional supplements).: Yes The patient is not eligible for med reconciliation; the patient is in a emergent medical situation where delaying treatment would jeopardize the patients health.: No
[2025-03-05 15:29] LABS: MRSA (PCR) NOT DETECTED (NOT DETECTE)
--- NOTE | 2025-03-05 18:49 | P.CONPL_ITS ---
Assessment and Plan Assessment and plan (1) Pulmonary embolism: Code(s): I26.99 - Other pulmonary embolism without acute cor pulmonale Status: Acute Assessment and Plan: New pulmonary emboli seen on chest CTA - small thrombus load, not hemodynamically significant, he does not have an oxygen requirement, echo is normal. He had 3 negative troponins and mild hyponatremia. He is on Eliquis 5 mg b.i.d. and will continue likely for 6 months. We will see the patient in the office in 5-6 weeks to review treatment. His risk actor for this includes recent COVID 10 weeks ago. (2) Asthma-COPD overlap syndrome: Code(s): J44.89 - Other specified chronic obstructive pulmonary disease Status: Acute Assessment and Plan: He was diagnosed around age 50, responds well to albuterol when needed as rescue medication. He is on controller medication with Breztri and Incruse, was recently switched to Breztri from Symbicort 4 months ago. He is a lifelong nonsmoker. His father of lung cancer at 83, moderately heavy smoker patient did grow up in smoke but father was not home smoking often. There is no other history of asthma or lung disease in the family. He has had spirometry as an outpatient quite a while ago. He is physically active, his breathing issues do not interfere with his activities. He has a caregiver to his who is now disabled, lives at home with her. * Plan for PFT, 6MW, alpha-1 testing when he recovers. . Plan plan: Ok to go home today. Stop Incruse; continue Breztri 2 puffs bid, rinse and spit. Incruse is overlapping with one of the medications in your Breztri. Continue Albuterol prn shortness of breath or wheezing. Continue Eliquis 5 mg b.i.d. Prednisone taper, 60 mg today, decrease by 10 mg every 2 days until tapered off. Oximeter for home use. It is recommended for you to obtain an oximeter. It should be a health grade device, not a sports grade device. We recommend [employer] brand or other health grade oximeter. The goal with using supplemental oxygen is to maintain a saturation between 89% and 94% while using supplemental oxygen. Use O2 while you are active. Check your saturation during exercise and 2-3 minutes after exercising when you are resting. Sometime saturation can decrease during recovery from exercise. Without oxygen, it is absolutely fine to have a saturation above 94% but it is not okay to use oxygen to get the saturation above 94%. If you are sitting quietly at rest and your saturation is 88% or below, wear O2. If you are sitting quietly at rest without O2 and your saturation is 90% or above, you do not have to use O2. If you are 95% on room air, do not wear O2. There are potential harms to having a saturation that is too high. More is not better. Buying an oximeter online can be much less expensive than buying from a drug store. Online, you may find an oximeter for $10-$20, compared to $50-$90 in a drug store. Follow up in pulmonary office 5-6 weeks; [phone] is [facility] [place] Pulmonary office number. History of Present Illness History of Present Illness Consult date: 03/06/25 Chief complaint: COPD, pneumonia, hypoxia Narrative: pt was seen January 04, 2025 at 10:40 am Room 240 His daughter Renu is at the bedside. NEW: Joshua Wilkinson is 69 years old, had asthma diagnosed with asthma age 50, occurred after going to a game at [employer]. He was walking up the ramp and friend noticed that he was wheezing. He noticed that he did wheeze and was somewhat short of breath when he was active with sports. His primary care doctor Chava Cruz evaluated him, he was diagnosed with asthma/COPD and has been on medications, many years was on Symbicort and Incruse. About 4 months ago, Symbicort was no longer covered on his insurance and this was switched to Breztri. He is also taking Incruse with the Breztri, overlap so this will be stopped. He has had a cough for 20 years and tells me that after he had COVID about 10 weeks ago he went home and returned at least to his baseline health if not better because his chronic cough disappeared. He had a mild episode of COVID. He has never been on a ventilator. About 2 days prior to admission, he started having shortness of breath, congestion, small amount of light colored sputum production and decreased energy. He did not have any chest pain or hemoptysis. He has not had any fever, sore throat, nasal congestion, sinus symptoms and has not been exposed to any sick individuals. His is at home, he is her caregiver. At 2 in the morning on he was no longer able to tolerate the shortness of breath so he called 911 and was brought to the hospital by ambulance. He had no long car rides, no immobility, no falls, no events that would predispose to a pulmonary embolus other than recent COVID. He was admitted with shortness of breath, coughing with scant sputum production. The lowest saturation mentioned in the emergency department was 87% on room air. He required oxygen transiently. Resp rate was elevated 28 at admission, quickly improved. He is now on room air. His CTA was suspicious for defects in the subsegmental branches in the right lower lobe area possibly artifactual. He had focal areas of atelectasis versus pneumonia in the left upper lobe anteriorly in the right lower lobe medially. Was treated with Rocephin and azithromycin and continues on oral azithromycin. He had a coughing episode yesterday morning, lasted about 20 minutes. Today, he feels fine, wants to go home. Work: He is retired. 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 He is exposed to multiple powders and chemicals including sodium benzoate, potassium sulfate, ascorbic acid, sodium citrate. He worked with several smokers until 1992. He wore respiratory protective gear about 50% of the time. He did not have any severe exposures to chemicals while he worked. DATA * 03/04/25; EKG; Intervals Rachel Rate: 83 P: 74 SD: 188 QRS: -22 QRSD: 128 T: 28 QT: 375 QTc: 442 Interpretive Statements SINUS RHYTHM SEPTAL MYOCARDIAL INFARCTION , OF INDETERMINATE AGE [40+ ms Q WAVE IN V1/V2] No previous ECG available for comparison Electronically Signed On 03-04-2025 15:00:58 CDT by Robert Escobar M.D. * Na+ 135, K+ 3.2, chloride 99, carbon dioxide 33, BUN 14, creatinine 0.6. He had 3 negative troponins below 0.012; no BNP obtained. * white blood cell count 5.9, hemoglobin 11.2, hematocrit 35.6%, platelets 223 K. * 03/04/25; CTA defects seen in the subsegmental branches in the right lower lobe area most likely artifacts; pulmonary embolism cannot be excluded although this likely. 2. Focal areas of atelectasis versus pneumonia in the left upper lobe anteriorly and right lower lobe medially. 3. Large sliding hiatus hernia. * 03/05/2025 echo: Left ventricular chamber dimension is normal. 2. Left ventricular systolic function is normal, estimated at >70. 3. There is mildly increased left ventricular wall thickness. 4. The left ventricular diastolic function is grade I diastolic dysfunction. 5. Right ventricular systolic function is normal. 6. There is mild tricuspid valve regurgitation. * 03/05/2025; LE Dopplers = negative for DVT Review of Systems 2 Review of Systems: All systems reviewed & are unremarkable except as noted in HPI and below PMFSH Past Medical History Medical History (Updated 03/06/25 @ 11:09 by Oriana Guaman MD) GERD (gastroesophageal reflux disease) Hypertension COPD (chronic obstructive pulmonary disease) Social History Social History Smoking status: Never smoker Second hand tobacco smoke exposure: No Alcohol intake: current Drinks per week: 10 Substance use: current Substance use type: does not use Do You Feel Safe in your Home?: Yes Lack of Transportation: No Lack of Food: Never True Current Housing: I Have Housing Concerned About Future Housing: No Difficulty Paying Gas/Electric Bills: No Difficulty Paying for Meds: No Currently Unemployed: No Education: Associate Degree Difficulty w/ Childcare or Family Care: No Spiritual care concerns: No Meds Home Medications and Allergies Home Medications ?Medication ?Instructions ?Recorded ?Confirmed ?Type albuterol sulfate 90 mcg/actuation 2 puff inhalation Q4-6H PRN 03/04/25 03/04/25 History aerosol inhaler shortness of breath or wheezing alfuzosin 10 mg tablet,extended 10 mg PO DAILY 03/04/25 03/04/25 History release 24 hr amlodipine 5 mg tablet 5 mg PO DAILY 03/04/25 03/04/25 History budesonide 160 mcg-glycopyr 9 2 inh inhalation BID 03/04/25 03/04/25 History mcg-formot 4.8 mcg/actuation HFA inhaler (Breztri Aerosphere) lisinopril 20 1 tablet PO BID 03/04/25 03/04/25 History mg-hydrochlorothiazide 25 mg tablet pantoprazole 40 mg tablet,delayed 40 mg PO DAILY 03/04/25 03/04/25 History release apixaban 5 mg tablet (Eliquis) 10 mg (2 x 5 mg) PO Q12HR #84 tabs 03/06/25 Rx azithromycin 250 mg tablet 500 mg (2 x 250 mg) PO DAILY #6 03/06/25 Rx (Zithromax) tabs guaifenesin 600 mg tablet, 1,200 mg (2 x 600 mg) PO Q12HR #20 03/06/25 Rx extended release 12 hr (Mucus tabs Relief ER) nifedipine 30 mg tablet,extended 30 mg PO QAM #30 tabs 03/06/25 Rx release 24 hr (Procardia XL) prednisone 10 mg tablet 50 mg (5 x 10 mg) PO DAILY@0800 03/06/25 Rx #30 tabs Allergies Allergy/AdvReac Type Severity Reaction Status Date / Time No Known Allergies Allergy Verified 03/04/25 03:02 Vital Signs Vital Signs - 24 hr 03/04/25 19:03 03/04/25 19:05 03/04/25 19:18 Temperature Pulse Rate 87 87 90 Respiratory Rate 20 20 20 Blood Pressure Pulse Oximetry 97 Oxygen Delivery Room Air Fraction of Inspired Oxygen 03/04/25 19:36 03/04/25 20:00 03/05/25 00:00 Temperature 36.7 C Pulse Rate 99 101 H 88 Respiratory Rate 17 Blood Pressure 148/71 H Pulse Oximetry 94 Oxygen Delivery Fraction of Inspired Oxygen 03/05/25 01:38 03/05/25 01:39 03/05/25 02:01 Temperature Pulse Rate 65 75 Respiratory Rate 20 20 Blood Pressure Pulse Oximetry 94 Oxygen Delivery Room Air Fraction of Inspired Oxygen 03/05/25 04:00 03/05/25 05:21 03/05/25 07:35 Temperature 36.7 C Pulse Rate 92 86 84 Respiratory Rate 17 20 Blood Pressure 137/68 Pulse Oximetry 93 Oxygen Delivery Fraction of Inspired Oxygen 03/05/25 07:44 03/05/25 08:00 03/05/25 09:30 Temperature Pulse Rate 88 97 Respiratory Rate 20 Blood Pressure Pulse Oximetry Oxygen Delivery Room Air Fraction of Inspired Oxygen 03/05/25 12:00 03/05/25 14:00 03/05/25 14:04 Temperature 36.6 C Pulse Rate 94 78 103 H Respiratory Rate 19 20 Blood Pressure 132/72 Pulse Oximetry 94 Oxygen Delivery Fraction of Inspired Oxygen 03/05/25 14:09 03/05/25 16:00 Temperature Pulse Rate 101 H 88 Respiratory Rate 20 Blood Pressure Pulse Oximetry Oxygen Delivery Fraction of Inspired Oxygen Exam 2 Narrative: GEN: Alert, oriented, not in distress. Athletic build. HEENT: pupils are equal, EOMI, symmetrical face; oral membranes moist, Mallampati I with full set of natural teeth. NECK: Trachea is midline CHEST: Equal air entry, symmetric excursion, faint wheeze in base at end expiration CV: Regular S1S2 no m/g/r ABD : (+) bowel sounds Extremities : no clubbing, cyanosis, or edema, good capillary refill. PSYCH: normal thought and speech, gait is normal Results Laboratory Findings 03/06/25 05:21 03/06/25 05:21 ABG, PT/INR, D-dimer: PT/INR, D-dimer PT 14.1 Seconds (11.1-14.7) 03/04/25 03:09 INR 1.0 03/04/25 03:09 D-Dimer 0.61 ug/mL (<0.48) H 03/04/25 12:11 Abnormal lab findings: Abnormal Labs 03/04/25 03/04/25 03/05/25 03:09 12:11 04:55 RBC 4.21 L 4.02 L Hgb 11.2 L 10.8 L Hct 35.6 L 33.7 L MCHC 31.5 L Immature Gran % (Auto) 0.7 H Neut % (Auto) 88.9 H Lymph % (Auto) 9.4 L 5.2 L Stewart % (Auto) 16.2 H Eos % (Auto) 6.7 H Baso % (Auto) 0.0 L Lymph # (Auto) 0.55 L 0.30 L Stewart # (Auto) 1.0 H Eos # (Auto) 0.4 H Abs Immat Gran (auto) 0.04 H D-Dimer 0.61 H Sodium 135 L 131 L Potassium 3.2 L Chloride 97 L Carbon Dioxide 33 H Anion Gap 3 L Creatinine 0.60 L 0.56 L Glucose 172 H Total Protein 6.0 L
[2025-03-06] VITALS (8 sets, daily range): BP systolic 140; BP diastolic 68; PULSE 73–100; RESP 17–20; TEMP 36.8; O2SAT 94
[2025-03-06] MEDS: ALBUTEROL SULFATE NEB 2.5 MG/3 ML INH INHALATION ×2 (01:55→08:20)
[2025-03-06 06:14] LABS: Basophils Percent Auto 0.1 % (0.2-1.2); Hematocrit 31.4 % (42.0-52.0); Hemoglobin 10.1 g/dL (14.0-18.0); Immature Granulocyte Absolute 0.07 K/mm3 (0.00-0.031); Immature Granulocyte Percent A 0.7 % (0-0.5); Lymphocytes Absolute Auto 0.61 K/mm3 (0.9-3.2); Lymphocytes Percent Auto 5.9 % (18.3-44.2); Mean Corpuscular HGB Conc 32.2 g/dl (32-36); Mean Corpuscular Hemoglobin 27.2 pg (26-34); Mean Corpuscular Volume 84.4 fl (80-100); Mean Platelet Volume 9.6 fl (7.4-10.4); Monocytes Absolute Auto 1.2 K/mm3 (0.1-0.6); Monocytes Percent Auto 11.9 % (2.6-8.5); Neutrophils Absolute Auto 8.4 K/mm3 (1.3-6.7); Neutrophils Percent Auto 81.4 % (45.5-73.1); Platelet Count Result 266 k/mm3 (150-375); Red Blood Count 3.72 M/mm3 (4.6-6.20); Red Cell Distribution Width 14.6 % (11.5-14.5); White Blood Count 10.3 K/mm3 (4.5-10.0)
[2025-03-06 06:27] LABS: Alanine Aminotransferase 26 U/L (6-50); Albumin Level 3.3 g/dL (3.5-5.1); Alkaline Phosphatase 54 U/L (38-126); Anion Gap 6 mmol/L (4-12); Aspartate Amino Transferase 30 U/L (17-59); Bilirubin,Total 0.4 mg/dL (0.2-1.3); Blood Urea Nitrogen 35 mg/dL (9-20); Calcium 8.2 mg/dL (8.4-10.2); Carbon Dioxide 30 mmol/L (22-30); Chloride 98 mmol/L (98-107); Estimated CRCL calculation 101 ml/min; Estimated Glomerular Filt Rate > 60; Glucose 133 mg/dL (65-110); Potassium 3.8 mmol/L (3.4-5.0); Sodium 134 mmol/L (137-145)
--- NOTE | 2025-03-06 06:55 | P.DS_ITS ---
DS: Admitting Diagnosis Discharge Date 03/06/2025 Admitting Diagnosis COPD with exacerbation DS: Discharge Diagnosis Discharge Diagnosis (1) COPD (chronic obstructive pulmonary disease): Code(s): J44.9 - Chronic obstructive pulmonary disease, unspecified Status: Acute Assessment and Plan: patient with history of adult onset asthma recently hospitalization in December for COVID pneumonia presented with worsening shortness of breath and had an episode of hypoxia in the emergency department was admitted for treatment of COPD exacerbation. patient reports 30 years of working in a satisfactory and around 20 years secondhand smoke exposure. CTA indeterminate on PE * Bronchodilators. * Chest x-ray no acute cardiopulmonary * incentive spirometry while awake. * steroids IV 60mg * azithromycin 500 x 1 day/250 daily and ceftriaxone * guaifenesin * Consult to Pulmonology appreciate further recommendations * PFT testing recommended * Echo pending * supplemental oxygen therapy to maintain oxygen 92% * May need home o2 evaluation to assess if patient needs oxygen with activity on room air at rest (2) COVID-19 yayo vaca: Code(s): U09.9 - Post COVID-19 condition, unspecified Status: Acute Assessment and Plan: SEE Above recent COVID pneumonia 12/2024. * COVID/influenza/RSV negative (3) D-dimer, elevated: Code(s): R79.89 - Other specified abnormal findings of blood chemistry Status: Acute Assessment and Plan: CTA defects seen in the subsegmental branches in the right lower lobe area most likely artifacts. pulmonary embolism cannot be excluded although this likely. * Started on Eliquis 10mg BID x 7 days to treat since indeterminate reading * Repeat CTA tomorrow * Venous dopplers ordered (4) Hypokalemia: Code(s): E87.6 - Hypokalemia Status: Acute Assessment and Plan: Potassium 3.1 POA * replenished with 40 mEq * monitoring replenish as needed * on continuous cardiac monitoring (5) Hypertension: Code(s): I10 - Essential (primary) hypertension Status: Acute Assessment and Plan: * discontinued patient's home blood pressure medication amlodipine, lisinopril and hydrochlorothiazide and switch to nifedipine 30 mg * Will increase as needed * BP per unit protocol (6) GERD (gastroesophageal reflux disease): Code(s): K21.9 - Gastro-esophageal reflux disease without esophagitis Status: Acute Assessment and Plan: * continue pantoprazole Plan Code status: Full code per patient DVT prophylaxis: Lovenox Stress ulcer prophylaxis: Protonix 40 daily PT/OT notes: ambulatory Disposition: Patient admitted to the medical unit for COPD exacerbation and possible long COVID consult to pulmonology had the for any further recommenda tions will continue with current treatment evaluate following day plan will be for patient to return home when medically stable. DS: Summary Hospital Course Hospital Course: Patient is a 69-year-old male who presented to the emergency department with complaints of worsening shortness of breath per patient he had been hospitalized due to COVID pneumonia back in December of 2024. Patient reports he does have a history of COPD/asthma but is a non smoker. Patient reports his shortness of breath began about 36 hours prior to arrival and is continue to worsen he attempted to use his inhaler every 4 hours with minimal relief. 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 Patient denied CP, N/V, dizziness, but endorses SOB worse with any activity or exertion. patient reports a past medical history of hypertension, adult onset asthma, and GERD. labs were fairly unremarkable except for hypokalemia at 3.2, CXR with no acute cardiopulmonary. Per emergency department patient did have episode of hypoxia, he was administered DuoNebs and IV methylprednisone and admitted to the medical unit for COPD exacerbation, lung COVID with consult to pulmonology. CT noted possible PE. Patient was placed on Eliquis. Pulmonary was consulted for COPD exacerbation. Patient was initiated on azithromycin and steroid therapy which has been placed on a taper. Patient has been maintaining air. Currently patient denies any chest pain, shortness a breath, nausea,, or constipation. Patient will need to follow up with his primary care provider and Pulmonary. Echo was also performed showed grade 1 diastolic dysfunction EF was greater than 70% and left ventricular wall thickness is noted. Currently patient is stable for discharge for labs and vital signs. Discharge instructions have been given patient verbalized understanding. Status at Discharge Functional status at discharge: independent ambulation Overall status at discharge: patient is progressing back to baseline Time Spent with Patient Time attestation: Total time spent providing and/or coordinating discharge services: 48 minutes Time spent: Greater than 30 minutes Specific discharge activities: Diagnostic testing, chart review, developing a treatment plan, education, care coordination documentation, physical exam, result review Exam Narrative: General: well-nourished, well-appearing 69-year-old female, sitting up in bed, comfortable, NARD Neuro: awake, alert and oriented x4, speech clear, no focal neuro deficits noted HEENMT: normocephalic, atraumatic, EOMI, sclerae anicteric, moist oral mucosa Respiratory: Clear to auscultation bilaterally without crackles, rhonchi or wheezes, nonlabored breathing Cardio: regular rate, regular rhythm with S1-S2 Abdomen: nondistended, normoactive bowel sounds, soft, nontender to palpation Extremities: no edema, erythema, or tenderness to palpation, DP pulses 2+ bilaterally Skin: no rashes or lesions, warm and dry Psych: appropriate mood and affect, judgment and insight intact DS: Data Data Completed and Pending Labs on day of discharge: Labs from last 24 hours 03/06/25 03/05/25 05:21 14:08 WBC 10.3 H RBC 3.72 L Hgb 10.1 L Hct 31.4 L MCV 84.4 MCH 27.2 MCHC 32.2 RDW 14.6 H Plt Count 266 MPV 9.6 Immature Gran % (Auto) 0.7 H Neut % (Auto) 81.4 H Lymph % (Auto) 5.9 L [place] % (Auto) 11.9 H Eos % (Auto) 0.0 Baso % (Auto) 0.1 L Lymph # (Auto) 0.61 L [place] # (Auto) 1.2 H Eos # (Auto) 0.0 Baso # (Auto) 0.0 Abs Immat Gran (auto) 0.07 H Absolute Neuts (auto) 8.4 H Absolute Nucleated RBC 0.000 Nucleated RBC % 0.0 Sodium 134 L Potassium 3.8 Chloride 98 Carbon Dioxide 30 Anion Gap 6 BUN 35 H D Creatinine 0.65 L Estim Creat Clear Calc 101 Estimated GFR > 60 Glucose 133 H Calcium 8.2 L Total Bilirubin 0.4 AST 30 ALT 26 Alkaline Phosphatase 54 Total Protein 6.0 L Albumin 3.3 L Nasal MRSA (PCR) Not detected Preliminary micro results at discharge 03/04/25 10:36 Blood Culture - Preliminary Blood 03/04/25 10:35 Blood Culture - Preliminary Blood Discharge Plan Discharge Attending physician on discharge: Georgia Rodriguez Consulting providers: Oriana Guaman; Regina Reid Discharging Clinician: Ayan Graham Patient Disposition: Home Activity: may shower, unlimited and as tolerated Diet: heart healthy Discharge Instructions: * Take medications as prescribed * Monitor blood pressures * Take Eliquis 10 mg PO BID for the next 5 days, then switch to 5 mg PO BID * Follow up with your primary care provider or return to the emergency department if he developed sudden shortness of breath, chest pain, fevers >100.4F or any other worrisome symptoms * Return to the emergency department if you develop fever greater than 101.5 * Follow-up with the primary care physician within 1 week * Thank you for [facility] for your healthcare needs Patient Instructions: Antibiotic Form, Apixaban (By mouth) Patient Language: Libyan Stand Alone Forms: General Discharge Information Follow-up/Referrals: Anthony,MD Chava [Primary Care Provider] - 1 Week Oriana Guaman MD [Physician] - Call for Appointment Discharge Medications: New nifedipine [Procardia XL] 30 mg Tablet Extended Release 24hr 30 mg PO QAM Qty: 30 0RF prednisone 10 mg Tablet 50 mg PO DAILY@0800 Qty: 30 0RF Rx Instructions: 50mg x 2 days 40mg x 3 days 30mg x 2 days 20mg x 2 days 10mg x 2 days azithromycin [Zithromax] 250 mg Tablet 500 mg PO DAILY Qty: 6 0RF guaifenesin [Mucus Relief ER] 600 mg Tablet Extended Release 12hr 1,200 mg PO Q12HR Qty: 20 0RF Eliquis 5 mg Tablet 10 mg PO Q12HR Qty: 84 0RF Continued alfuzosin 10 mg tablet extended release 24 hr 10 mg PO DAILY Breztri Aerosphere 160-9-4.8 mcg/actuation HFA aerosol inhaler 2 inh INHALATION BID amlodipine 5 mg tablet 5 mg PO DAILY lisinopril-hydrochlorothiazide 20-25 mg tablet 1 tablet PO BID pantoprazole 40 mg tablet,delayed release (DR/EC) 40 mg PO DAILY albuterol sulfate 90 mcg/actuation HFA aerosol inhaler 2 puff INHALATION Q4-6H PRN (Reason: shortness of breath or wheezing) Discontinued Incruse Ellipta 62.5 mcg/actuation blister with device 1 inh INHALATION DAILY naproxen sodium [Aleve] 220 mg capsule 440 mg PO ONCE Patient Comments: shoulder pain Date of admission: 05/27/25 10:51 Primary Care Provider: SarahChava Admitting Provider: Heber Cantu Attending physician on admission: Heber Cantu Condition: Serious Quality VTE Prophylaxis VTE prophylaxis: pharmacologic ordered Hospitalist MIPS Heart Failure (Exclusion) Patient has history of Heart Transplant or Left Ventricular Assistive Device?: No IF YES, STOP HERE Heart Failure (Qualifier) Patient has current or prior documentation of LVEF less than or equal to 40%, or mod/servere depressed LVSF?: No IF NO, STOP HERE
[2025-03-06] MEDS: guaiFENesin 12 HR 600 MG TABCR 1200 MG PO (08:19)
[2025-03-06] MEDS: AZITHROMYCIN 250 MG TABLET 500 MG PO (08:19)
[2025-03-06] MEDS: APIXABAN 5 MG TABLET 10 MG PO (08:19)
[2025-03-06] MEDS: PANTOPRAZOLE 40 MG TABLET PO (08:20)
[2025-03-06] MEDS: NIFEdipine 30 MG TAB.ER.24 PO (08:20)
[2025-03-06] MEDS: predniSONE 10 MG TABLET 50 MG PO (08:20)
== END 2025-03-06 11:45 | disposition home or self-care (01) | DRG 190 ==
LOC: ANHED 09:55 → ANH2MED 10:37
PROVIDERS: Nurse Practitioner Family; Student in an Organized Health Care Education/Training Program; Admitting Provider General Practice; Emergency Provider Emergency Medicine; PCP Internal Medicine; Visit Provider Nurse Practitioner
DX: J44.0 Chronic obstructive pulmonary disease with (acute) lower respiratory infection (principal); I26.99 Other pulmonary embolism without acute cor pulmonale; U09.9 Post COVID-19 condition, unspecified; E87.6 Hypokalemia; I10 Essential (primary) hypertension; J44.89 Other specified chronic obstructive pulmonary disease; K21.9 Gastro-esophageal reflux disease without esophagitis; R79.89 Other specified abnormal findings of blood chemistry
CPT/HCPCS: 36415; 71045; 71275; 80053; 83690; 84132; 84484; 85025; 85380; 85610; 85730; 87040; 87637; 87641; 93005; 93306; 93970; 94640; 96372; 96374; 96376; 99285; A9270; G0378; J0696; J1650; J2919; J7512; Q9967

== ENCOUNTER 2025-04-24 14:13 | Outpatient (CLI) | payer MEDICARE, OTHER, SELFPAY ==
--- OUTSIDE RECORDS SUMMARY | 2025-04-24 14:23 | XMS_ITS | Data Portability ---
Author Organization [facility] Address [address] [facility] [place] [address] Care Team Providers Care Storage Battery Inspector And Tester Name Role Phone WENDY CRUZ Primary Care Provider YAZAN Phelan Urologist Assessment Encounter Date Assessment Date Assessment LastModified by Organization Details LastModified Time 01/18/2024 01/18/2024 Hypertension con tinue amlodipine asthma/COPD breast treat Incruse Ellipta and albuterol again hypertension lisinopril hydrochlorothiazide GERD pantoprazole is granulomatous hepatitis stable Cologuard old records follow-up 4 months [email or web address] Not available 01/28/2024 22:03:03 05/23/2024 05/23/2024 Asthma inhalers working great GERD doing fine hypertension controlled granulomatous hepatitis stable follow up with me in 6 months Not available 05/23/2024 21:31:12 05/29/2024 05/29/2024 [facility] and screenings discussed agreeable for Prevnar 20 keep regular appointment [email or web address] Not available 05/29/2024 23:35:40 12/28/2024 12/28/2024 re-educated him that he needs to rinse his mouth after using his inhalers nystatin swish and swallow. Continue inhalers for asthma blood pressure probably because of his acute illness his usual readings have been fine GERD stable granulomatous hepatitis has been doing fine he will see me back in 4 months he will get tetanus booster today [email or web address] Not available 12/29/2024 14:57:29 03/27/2025 03/27/2025 Continue current therapy healthy lifestyle care instructions he will see Pulmonary for definitive decision on length of therapy for his Eliquis I think they are going to go ahead and treat him as if he had a PE so we will refill Eliquis did have anemia with a MCV at the lower limits of normal we will check blood work including iron kinetics and based upon that we may need to do fit testing see me back in 2 months donna Not available 04/07/2025 16:59:31 Plan of Treatment Reminders Order Date Submit Date Provider Last Modified By Organization Details Last Modified Time Details Appointments ANY 15 2024 10:30A Lilliam Cruz MD Not available Not available Not available Lab lipid panel, serum 2024 025 [employer] [facility], [address], [address], [place], [address], 04/03/2025 03:31:29 CMP, serum or plasma 2024 025 [employer] [facility], [address], [address], [place], [address], 04/03/2025 03:31:30 CBC w/ auto diff 2024 025 [employer] [facility], [address], [address], [place], [address], 04/03/2025 03:31:32 iron + TIBC + ferritin, serum 2024 025 [employer] [facility], [address], [address], [place], [address], 04/03/2025 03:31:28 retic count, blood 2024 025 [employer] [facility], [address], [address], [place], [address], 04/03/2025 03:31:31 vitamin B12 + folate, serum or blood 2024 025 [employer] [facility], [address], [address], [place], [address], 04/03/2025 03:31:33 hemoglobi n, gastroint estinal, stool 2024 025 [email or web address] [facility], [address], [address], [place], [address], 04/17/2025 09:38:04 PSA, serum or plasma 2023 024 [facility], [address], [address], [place], [address], 01/27/2024 02:21:07 noninvasi ve colorecta l cancer DNA + occult blood screening , QL, stool 2023 024 [facility] [address], [address], [place], [address], 02/15/2024 17:38:04 lipid panel, serum 2023 024 [facility], [address], [address], [place], [address], 01/27/2024 02:21:05 CBC w/ auto diff 2023 024 [employer] [facility], [address], [address], [place], [address], 01/27/2024 02:21:07 CMP, serum or plasma 2023 024 [facility], [address], [address], [place], [address], 01/27/2024 02:21:06 Referral None recorded. Procedures None recorded. Surgeries None recorded. Imaging None recorded. Medication Orders Eliquis 5 mg tablet 2024 025 [email or web address] [facility] [address], [address], 03/27/2025 12:58:40 nifedipin e ER 30 mg tablet,ex tended release 2024 025 [facility], [address] [place] [address], [address], 03/27/2025 12:58:40 lisinopri l 20 mg-hydroc hlorothia zide 25 mg tablet 2024 025 [email or web address] [facility] In [facility], [address] [place] [address], [address], 03/27/2025 12:58:40 nystatin 100,000 unit/mL oral suspensio n 2024 025 [email or web address] [facility] In [facility], [address] [place] [address], [address], 03/27/2025 12:06:05 Patient TargetsNo targets recorded. Patient Instructions Encounter Date Encounter Id Patient Instructions Last Modified By Organization Details Last Modified Time 05/29/2024 [id number] preventing falls : care instructions [email or web address] Not available 05/29/2024 18:01:36 Medicare [facility] Preventive Checklist Not available 05/29/2024 18:01:36 12/28/2024 [id number] A healthy lifestyle: care instructions [email or web address] Not available 12/28/2024 13:26:11 03/27/2025 [id number] A healthy lifestyle: care instructions Not available 03/27/2025 12:58:40 Reason for Referral None Reported. Results Created Date Observation Date Name Description Value Unit Range Abnormal Flag Note LastModifiedBy Organization Detail LastModifiedTime 01/26/2001/27/2024 LIPID PANEL , STAND TERRY cholesterol, total 155 mg/dL <200 normal Not Available [facility] [address] [place], [address], 01/27/2024 02:21:05 01/26/2001/27/2024 LIPID PANEL , STAND TERRY HDL cholesterol 61 mg/dL > or = 40 normal Not Available [facility] [address] [place], [address], 01/27/2024 02:21:05 01/26/20 24 01/27/2024 LIPID PANEL , STAND TERRY triglyceride s 85 mg/dL <150 normal Not Available [facility] [place] [address] [place], [address], 01/27/2024 02:21:05 01/26/20 24 01/27/2024 LIPID PANEL , STAND TERRY LDL-choleste rol 77 mg/dL _(sloan c) normal Refer ence range : <100 Micaela able range <100 mg/dL for prima ry preve ntion ; <70 mg/dL for patie nts with CHD or diabe tic patie nts with > or = 2 CHD risk facto rs. LDL-C is now calcu lated using the Lilly n-Hop kins calcu bertrand n, which is a valid ated novel zaido d provi ding jessy r accur acy than the Fried kay equat ion in the estim ation of LDL-C . Lilly angela SS et al. CHUCKY. 2013; 310(1 9): 2061- 2068 (http ://ed ucati on.Qu Pari Samesurf. com/f aq/FA Q164) Not Available [facility] [address] [place], [address], 01/27/2024 02:21:05 01/26/20 24 01/27/2024 LIPID PANEL , STAND TERRY chol/HDLC ratio 2.5 (calc ) <5.0 normal Not Available [facility] [address] [place], [address], 01/27/2024 02:21:05 01/26/20 24 01/27/2024 LIPID PANEL , STAND TERRY non HDL cholesterol 94 mg/dL _(sloan c) <130 normal For patie nts with diabe dereje plus 1 major ASCVD risk facto r, treat ing to a non-H DL-C goal of <100 mg/dL (LDL- C of <70 mg/dL ) is consi dered a thera peuti c optio n. Not Available [facility] [address] [place], [address], 01/27/2024 02:21:05 01/26/20 24 01/27/2024 COMPR EHENS NITA METAB OLIC PANEL glucose 84 mg/dL 65-99 normal Fasti ng refer ence inter alex Not Available [address], [address], 01/27/2024 02:21:06 01/26/20 24 01/27/2024 COMPR EHENS NITA METAB OLIC PANEL urea nitrogen (BUN) 11 mg/dL 7-25 normal Not Available [address], [address], 01/27/2024 02:21:06 01/26/20 24 01/27/2024 COMPR EHENS NITA METAB OLIC PANEL creatinine 0.73 mg/dL 0.70-1 .28 normal Not Available [address], [address], 01/27/2024 02:21:06 01/26/20 24 01/27/2024 COMPR EHENS NITA METAB OLIC PANEL eGFR 98 mL/mi n/1.7 3m2 > or = 60 normal Not Available [address], [address], 01/27/2024 02:21:06 01/26/20 24 01/27/2024 COMPR EHENS NITA METAB OLIC PANEL BUN/creatini ne ratio SEE NOTE: (calc ) 6-22 Not Repor axel: BUN and Creat inine are withi n refer ence range . Not Available [address], [address], 01/27/2024 02:21:06 01/26/20 24 01/27/2024 COMPR EHENS NITA METAB OLIC PANEL sodium 136 mmol/ L 135-14 6 normal Not Available [address], [address], 01/27/2024 02:21:06 01/26/20 24 01/27/2024 COMPR EHENS NITA METAB OLIC PANEL potassium 4.0 mmol/ L 3.5-5. 3 normal Not Available [address], [address], 01/27/2024 02:21:06 01/26/20 24 01/27/2024 COMPR EHENS NITA METAB OLIC PANEL chloride 98 mmol/ L 98-110 normal Not Available [address], [address], 01/27/2024 02:21:06 01/26/20 24 01/27/2024 COMPR EHENS NITA METAB OLIC PANEL carbon dioxide 32 mmol/ L 20-32 normal Not Available [address], [address], 01/27/2024 02:21:06 01/26/20 24 01/27/2024 COMPR EHENS NITA METAB OLIC PANEL calcium 8.9 mg/dL 8.6-10 .3 normal Not Available [address], [address], 01/27/2024 02:21:06 01/26/20 24 01/27/2024 COMPR EHENS NITA METAB OLIC PANEL protein, total 6.7 g/dL 6.1-8. 1 normal Not Available [address], [address], 01/27/2024 02:21:06 01/26/20 24 01/27/2024 COMPR EHENS NITA METAB OLIC PANEL albumin 4.0 g/dL 3.6-5. 1 normal Not Available [address], [address], 01/27/2024 02:21:06 01/26/20 24 01/27/2024 COMPR EHENS NITA METAB OLIC PANEL globulin 2.7 g/dL_ (calc ) 1.9-3. 7 normal Not Available [address], [address], 01/27/2024 02:21:06 01/26/20 24 01/27/2024 COMPR EHENS NITA METAB OLIC PANEL albumin/glob ulin ratio 1.5 (calc ) 1.0-2. 5 normal Not Available [address], [address], 01/27/2024 02:21:06 01/26/20 24 01/27/2024 COMPR EHENS NTIA METAB OLIC PANEL bilirubin, total 1.3 mg/dL 0.2-1. 2 high Not Available [address], [address], 01/27/2024 02:21:06 01/26/20 24 01/27/2024 COMPR EHENS NITA METAB OLIC PANEL alkaline phosphatase 72 U/L 35-144 normal Not Available [address], [address], 01/27/2024 02:21:06 01/26/20 24 01/27/2024 COMPR EHENS NITA METAB OLIC PANEL AST 33 U/L 10-35 normal Not Available [address], [address], 01/27/2024 02:21:06 01/26/20 24 01/27/2024 COMPR EHENS NITA METAB OLIC PANEL ALT 22 U/L 9-46 normal Not Available [address], [address], 01/27/2024 02:21:06 01/26/20 24 01/27/2024 CBC (INCL UDES DIFF/ PLT) white blood cell count 6.0 thous and/u L 3.8-10 .8 normal Not Available [address], [address], 01/27/2024 02:21:07 01/26/20 24 01/27/2024 CBC (INCL UDES DIFF/ PLT) red blood cell count 4.55 stefania on/uL 4.20-5 .80 normal Not Available [address], [address], 01/27/2024 02:21:07 01/26/20 24 01/27/2024 CBC (INCL UDES DIFF/ PLT) hemoglobin 14.0 g/dL 13.2-1 7.1 normal Not Available [address], [address], 01/27/2024 02:21:07 01/26/20 24 01/27/2024 CBC (INCL UDES DIFF/ PLT) hematocrit 43.1 % 38.5-5 0.0 normal Not Available [address], [address], 01/27/2024 02:21:07 01/26/20 24 01/27/2024 CBC (INCL UDES DIFF/ PLT) MCV 94.7 fL 80.0-1 00.0 normal Not Available [address], [address], 01/27/2024 02:21:07 01/26/20 24 01/27/2024 CBC (INCL UDES DIFF/ PLT) MCH 30.8 pg 27.0-3 3.0 normal Not Available [address], [address], 01/27/2024 02:21:07 01/26/20 24 01/27/2024 CBC (INCL UDES DIFF/ PLT) MCHC 32.5 g/dL 32.0-3 6.0 normal Not Available [address], [address], 01/27/2024 02:21:07 01/26/20 24 01/27/2024 CBC (INCL UDES DIFF/ PLT) RDW 12.5 % 11.0-1 5.0 normal Not Available [address], [address], 01/27/2024 02:21:07 01/26/20 24 01/27/2024 CBC (INCL UDES DIFF/ PLT) platelet count 218 thous and/u L 140-40 0 normal Not Available [address], [address], 01/27/2024 02:21:07 01/26/20 24 01/27/2024 CBC (INCL UDES DIFF/ PLT) MPV 9.3 fL 7.5-12 .5 normal Not Available [address], [address], 01/27/2024 02:21:07 01/26/20 24 01/27/2024 CBC (INCL UDES DIFF/ PLT) absolute neutrophils 3882 cells /uL 1500-7 800 normal Not Available [address], [address], 01/27/2024 02:21:07 01/26/20 24 01/27/2024 CBC (INCL UDES DIFF/ PLT) absolute lymphocytes 738 cells /uL 850-39 00 low Not Available [address], [address], 01/27/2024 02:21:07 01/26/20 24 01/27/2024 CBC (INCL UDES DIFF/ PLT) absolute monocytes 900 cells /uL 200-95 0 normal Not Available [address], [address], 01/27/2024 02:21:07 01/26/20 24 01/27/2024 CBC (INCL UDES DIFF/ PLT) absolute eosinophils 420 cells /uL 15-500 normal Not Available [address], [address], 01/27/2024 02:21:07 04/18/20 24 01/27/2024 CBC (INCL UDES DIFF/ PLT) absolute basophils 60 cells /uL 0-200 normal Not Available [address], [address], 01/27/2024 02:21:07 01/26/20 24 01/27/2024 CBC (INCL UDES DIFF/ PLT) neutrophils 64.7 % normal Not Available [address], [address], 01/27/2024 02:21:07 01/26/20 24 01/27/2024 CBC (INCL UDES DIFF/ PLT) lymphocytes 12.3 % normal Not Available [address], [address], 01/27/2024 02:21:07 01/26/20 24 01/27/2024 CBC (INCL UDES DIFF/ PLT) monocytes 15.0 % normal Not Available [address], [address], 01/27/2024 02:21:07 01/26/20 24 01/27/2024 CBC (INCL UDES DIFF/ PLT) eosinophils 7.0 % normal Not Available [address], [address], 01/27/2024 02:21:07 01/26/20 24 01/27/2024 CBC (INCL UDES DIFF/ PLT) basophils 1.0 % normal Not Available [address], [address], 01/27/2024 02:21:07 01/26/20 24 01/27/2024 PSA, TOTAL PSA, total 0.63 NG/mL < or = 4.00 normal The total PSA value from this assay syste m is stand ardiz ed again st the WHO stand terry. The test resul t will be appro ximat vicky 20% lower when ted red to the equim olar- stand ardiz ed total PSA (Ansari man Coult er). Ted rison of seria l PSA resul ts shoul d be inter prete d with this fact in mind. This test was perfo rmed using the Sieme ns chemi lumin escen t metho d. Value s obtai jessie from diffe rent assay metho ds canno t be used inter pimentel eably . PSA level s, regar dless of value , shoul d not be inter prete d as absol nulato evide nce of the prese nce or absen ce of disea se. Not Available [facility] [address] [address], [place], [address], 01/27/2024 02:21:07 02/08/20 24 02/08/2024 COLOG UARD cologuard result reportable Negati ve negati ve normal NEGAT NITA TEST RESUL T. A negat nita Colog uard resul t indic ates a low likel ihood that a color ectal cance r (CRC) or advan moris adeno ma (dio omato us polyp s with more advan moris pre-m align ant featu res) is prese nt. The chanc e that a perso n with a negat nita Colog uard test has a color ectal cance r is less than 1 in 1500 (nega tive predi ctive value >99.9 %) or has an advan moris adeno ma is less than 5.3% (nega tive predi ctive value 94.7% ). These data are based on a prosp ectiv e cross -sect ional study of ,00 0 indiv idual s at [facility] risk for color ectal cance r who were scree jessie with both Colog uard and colon oscop y. (Wesley Espitia et al, N Engl J Med 2014; 370(1 4):12 86-12 97) The livia l value (refe rence range ) for this assay is negat nita. COLOG UARD RE-SC REENI NG RECOM MENDA TION: Perio dic color ectal cance r scree filipe is an impor tant part of preve ntive healt hcare for asymp tomat ic indiv idual s at [facility] risk for color ectal cance r. Follo wing a negat nita Colog uard resul t, the Ameri can Cance r Socie ty and U.S. Multi -Soci ety Task Force scree filipe guide lines recom mend a Colog uard re-sc reecarin ng inter alex of 3 years . Refer ences : Ameri can Cance r Socie ty Guide line for Color ectal Cance r Scree filipe: https ://rosina w.can cer.o rg/ca ncer/ colon -rect al-ca ncer/ detec tion- diagn osis- stagi ng/ac s-rec ommen datio ns.ht ml.; Luis MIRZA, Manny SAHA, Martha LOMBARDI, Color ectal Cance r Scree filipe: Recom menda tions for Physi cians and Patie nts from the U.S. Multi -Soci ety Task Force on Color ectal Cance r Scree filipe , Ethan jamisonntdeysi rolog y 2017; 112:1 016-1 030. TEST DESCR IPTIO N: [place] site algor ithmi c zunilda sis of stool DNA-b iomar kers with hemog lobin immun oassa y. Quant itati ve value s of indiv idual bioma rkers are not repor table and are not assoc iated with indiv idual bioma rker resul t refer ence range s. Colog uard is inten ded for color ectal cance r scree filipe of adult s of eithe r sex, 45 years or older , who are at [facility] for color ectal cance r (CRC) . Colog uard has been appro wang for use by the U.S. FDA. The perfo rmanc e of Colog uard was estab lishe d in a cross secti onal study of [facility] adult s aged 50-84 . Colog uard perfo rmanc e in patie nts ages 45 to 49 years was estim ated by sub-g roup zunilda sis of near- age group s. Colon oscop ies perfo rmed for a posit nita resul t may find as the most clini fanny signi fican t lesio n: color ectal cance r [4.0% ], advan moris adeno ma (incl uding sessi le carlyn axel polyp s great er than or equal to 1cm diame ter) [20%] or non- advan moris adeno ma [31%] ; or no color ectal neopl hema [45%] . These estim ates are deriv ed from a prosp ectiv e cross -sect ional scree filipe study of 0 indiv idual s at [facility] risk for color ectal cance r who were scree jessie with both Colog uard and colon oscop y. (Wesley Toney. et al, N Engl J Med 2014; 370(1 4):12 86-12 97.) Colog uard may produ ce a false negat nita or false posit nita resul t (no color ectal cance r or preca ncero us polyp prese nt at colon oscop y follo w up). A negat nita Colog uard test resul t does not guara ntee the absen ce of CRC or advan moris adeno ma (pre- cance r). The curre nt Colog uard scree filipe inter alex is every 3 years . (Amer ican Cance r Socie ty and U.S. Multi -Soci ety Task Force ). Colog uard perfo rmanc e data in a 0 patie nt pivot al study using colon oscop y as the refer ence metho d can be acces sed at the [facility] wing locat ion: www.e xactl abs.c om/re chery . Addit ional descr iptio n of the Colog uard test proce ss, warni ngs and preca ution s can be found at www.c darnellogu terry.c om. Not Available [facility] (Cologuard Orders Only) [address], [place], [address], 02/15/2024 17:38:04 12/14/19 25 12/13/2024 Proca lcito marielena [Mass /volu me] in Serum or Plasm a procalcitoni n [mass/volume ] in serum or plasma 2.09 NG/mL low: 0NG/mL high: 0.08NG /mL high Not Available Not Available 12/17/2024 14:37:10 12/14/19 25 12/13/2024 Lacta te [Mole s/vol ume] in Serum or Plasm a lactate [moles/volum e] in serum or plasma 1 mmol/ L low: 0.7mmo l/Lhig h: 1.9mmo l/L normal Not Available Not Available 12/17/2024 14:37:10 12/14/19 25 12/13/2024 Magne sium [Mass /volu me] in Serum or Plasm a magnesium [mass/volume ] in serum or plasma 1.8 mg/dL low: 1.6mg/ dLhigh : 2.3mg/ dL normal Not Available Not Available 12/17/2024 14:37:10 12/14/19 25 12/13/2024 Magne sium [Mass /volu me] in Serum or Plasm a magnesium [mass/volume ] in serum or plasma 1.6 mg/dL low: 1.6mg/ dLhigh : 2.3mg/ dL normal Not Available Not Available 12/17/2024 14:37:10 12/14/19 25 12/13/2024 Compr ehens nita metab olic 1999 panel - Serum or Plasm a sodium [moles/volum e] in blood 130 mmol/ L low: 137mmo l/Lhig h: 145mmo l/L low Not Available Not Available 12/17/2024 14:37:09 12/14/19 25 12/13/2024 Compr ehens nita metab olic 1999 panel - Serum or Plasm a potassium [moles/volum e] in serum or plasma 3.6 mmol/ L low: 3.5mmo l/Lhig h: 5.1mmo l/L normal Not Available Not Available 12/17/2024 14:37:09 12/14/19 25 12/13/2024 Compr ehens nita metab olic 1999 panel - Serum or Plasm a chloride [moles/volum e] in serum or plasma 101 mmol/ L low: 98mmol /Lhigh : 107mmo l/L normal Not Available Not Available 12/17/2024 14:37:09 12/14/19 25 12/13/2024 [facility] [employer] [facility] 1999 panel - Serum or Plasm a carbon dioxide, total [moles/volum e] in serum or plasma 24 mmol/ L low: 22mmol /Lhigh : 30mmol /L normal Not Available Not Available 12/17/2024 14:37:09 12/14/19 25 12/13/2024 [facility] [employer] 1999 panel - Serum or Plasm a anion gap in serum or plasma 8.6 mmol/ L low: 14mmol /Lhigh : 22mmol /L low Not Available Not Available 12/17/2024 14:37:09 12/14/19 25 12/13/2024 [facility] 1999 panel - Serum or Plasm a glucose [mass/volume ] in serum or plasma 108 mg/dL low: 70mg/d Lhigh: 99mg/d L high Not Available Not Available 12/17/2024 14:37:09 12/14/19 25 12/13/2024 [facility] 1999 panel - Serum or Plasm a urea nitrogen [mass or moles/volume ] in serum or plasma 18 mg/dL low: 8mg/dL high: 19mg/d L normal Not Available Not Available 12/17/2024 14:37:09 12/14/19 25 12/13/2024 [facility] 1999 panel - Serum or Plasm a creatinine [mass/volume ] in serum or plasma 0.91 mg/dL low: 0.66mg /dLhig h: 1.25mg /dL normal Not Available Not Available 12/17/2024 14:37:09 12/14/19 25 12/13/2024 [facility] [employer] [facility] 1999 panel - Serum or Plasm a glomerular filtration rate/1.73 sq M.predicted [volume rate/area] in serum, plasma or blood >60 normal Not Available Not Available 12/08 14:37:09 12/14/19 25 12/13/2024 [facility] 1999 panel - Serum or Plasm a alkaline phosphatase [enzymatic activity/vol ume] in serum or plasma 114 U/L low: 38U/Lh igh: 126U/L normal Not Available Not Available 12/17/2024 14:37:09 12/14/19 25 12/13/2024 [facility] [employer] [facility] 1999 panel - Serum or Plasm a alanine aminotransfe rase [enzymatic activity/vol ume] in serum or plasma 26 U/L low: 0U/Lhi gh: 50U/L normal Not Available Not Available 12/17/2024 14:37:09 12/14/19 25 12/13/2024 [facility] [employer] [facility] 1999 panel - Serum or Plasm a aspartate aminotransfe rase [enzymatic activity/vol ume] in serum or plasma 45 U/L low: 15U/Lh igh: 46U/L normal Not Available Not Available 12/17/2024 14:37:09 12/14/19 25 12/13/2024 [facility] [place] [employer] [facility] 1999 panel - Serum or Plasm a bilirubin.to paco [mass/volume ] in serum or plasma 2.2 mg/dL low: 0.2mg/ dLhigh : 1.3mg/ dL high Not Available Not Available 12/17/2024 14:37:09 12/14/19 25 12/13/2024 [facility] [employer] [facility] 1999 panel - Serum or Plasm a calcium [mass/volume ] in serum or plasma 8.8 mg/dL low: 8.4mg/ dLhigh : 10.2mg /dL normal Not Available Not Available 12/17/2024 14:37:09 12/14/19 25 12/13/2024 [facility] [employer] [facility] 1999 panel - Serum or Plasm a protein [mass/volume ] in serum or plasma 6.7 g/dL low: 6.3g/d Lhigh: 8.2g/d L normal Not Available Not Available 12/17/2024 14:37:09 12/14/19 25 12/13/2024 [facility] [place] [employer] [facility] 1999 panel - Serum or Plasm a albumin [mass/volume ] in serum or plasma 3.6 g/dL low: 3g/dLh igh: 4.4g/d L normal Not Available Not Available 12/17/2024 14:37:09 12/14/19 25 12/13/2024 [facility] [place] [employer] [facility] 1999 panel - Serum or Plasm a globulin [mass/volume ] in serum 3.1 g/dL low: 2.6g/d Lhigh: 4.2g/d L normal Not Available Not Available 12/17/2024 14:37:09 12/14/19 25 12/13/2024 Compr ehens nita metab olic 1999 panel - Serum or Plasm a albumin/glob ulin [mass ratio] in serum or plasma 1.2 ratio low: 1ratio high: 2ratio normal Not Available Not Available 12/17/2024 14:37:09 12/14/19 25 12/13/2024 Natri ureti c pepti de B [Mass /volu me] in Blood natriuretic peptide B [mass/volume ] in blood 49 pg/mL low: 4pg/mL high: 125pg/ mL normal Not Available Not Available 12/17/2024 14:37:09 12/14/19 25 12/13/2024 CBC W Auto Diffe renti al panel - Blood leukocytes [#/volume] in blood by automated count 11 x10'3 /uL low: 4.2x10 '3/uLh igh: 10.8x1 0'3/uL high Not Available Not Available 12/17/2024 14:37:09 12/14/19 25 12/13/2024 CBC W Auto Diffe renti al panel - Blood erythrocytes [#/volume] in blood by automated count 4.01 x10'6 /uL low: 4.1x10 '6/uLh igh: 5.8x10 '6/uL low Not Available Not Available 12/17/2024 14:37:09 12/14/19 25 12/13/2024 CBC W Auto Diffe renti al panel - Blood hemoglobin [mass/volume ] in blood 11.7 g/dL low: 13.2g/ dLhigh : 17g/dL low Not Available Not Available 12/17/2024 14:37:09 12/14/19 25 12/13/2024 CBC W Auto Diffe renti al panel - Blood hematocrit [volume fraction] of blood by automated count 34.8 % low: 39.3%h igh: 50% low Not Available Not Available 12/17/2024 14:37:09 12/14/19 25 12/13/2024 CBC W Auto Diffe renti al panel - Blood MCV [entitic volume] by automated count 86.8 fL low: 80fLhi gh: 97fL normal Not Available Not Available 12/17/2024 14:37:09 12/14/19 25 12/13/2024 CBC W Auto Diffe renti al panel - Blood MCH [entitic mass] by automated count 29.2 pg low: 27pghi gh: 33pg normal Not Available Not Available 12/17/2024 14:37:09 12/14/19 25 12/13/2024 CBC W Auto Diffe renti al panel - Blood MCHC [mass/volume ] by automated count 33.6 g/dL low: 31g/dL high: 36g/dL normal Not Available Not Available 12/17/2024 14:37:12/14/19 25 12/13/2024 CBC W Auto Diffe renti al panel - Blood erythrocyte distribution width [ratio] 14.1 % low: 11.8%h igh: 15.5% normal Not Available Not Available 12/17/2024 14:37:09 12/14/19 25 12/13/2024 CBC W Auto Diffe renti al panel - Blood platelets [#/volume] in blood by automated count 169 x10'3 /uL low: 150x10 '3/uLh igh: 400x10 '3/uL normal Not Available Not Available 12/17/2024 14:37:09 12/14/19 25 12/13/2024 CBC W Auto Diffe renti al panel - Blood platelet mean volume [entitic volume] in blood by automated count 9.7 fL low: 9fLhig h: 12.4fL normal Not Available Not Available 12/17/2024 14:37:12/14/19 25 12/13/2024 CBC W Auto Diffe renti al panel - Blood neutrophils/ 100 leukocytes in blood 83.8 % low: 39%hig h: 72% high Not Available Not Available 12/17/2024 14:37:09 12/14/19 25 12/13/2024 CBC W Auto Diffe renti al panel - Blood lymphocytes/ 100 leukocytes in blood 5.8 % low: 16%hig h: 47% low Not Available Not Available 12/17/2024 14:37:12/14/19 12/13/2024 CBC W Auto Diffe renti al panel - Blood monocytes/10 0 leukocytes in blood 8.6 % low: 5%high : 12% normal Not Available Not Available 12/17/2024 14:37:12/14/19 25 12/13/2024 CBC W Auto Diffe renti al panel - Blood eosinophils [#/volume] in blood 0 % low: 1%high : 7% low Not Available Not Available 12/17/2024 14:37:12/14/19 25 12/13/2024 CBC W Auto Diffe renti al panel - Blood basophils/10 0 leukocytes in blood 0.3 % low: 0%high : 2% normal Not Available Not Available 12/17/2024 14:37:12/14/1912/13/2024 CBC W Auto Diffe renti al panel - Blood immature granulocytes /100 leukocytes in blood 1.5 % low: 0%high : 0.5% high Not Available Not Available 12/17/2024 14:37:12/14/19 25 12/13/2024 CBC W Auto Diffe renti al panel - Blood neutrophils [#/volume] in blood 9.23 x10'3 /uL low: 1.5x10 '3/uLh igh: 8x10'3 /uL high Not Available Not Available 12/17/2024 14:37:12/14/19 25 12/13/2024 CBC W Auto Diffe renti al panel - Blood lymphocytes [#/volume] in blood 0.64 x10'3 /uL low: 1.07x1 0'3/uL high: 3.43x1 0'3/uL low Not Available Not Available 12/17/2024 14:37:09 12/14/19 25 12/13/2024 CBC W Auto Diffe renti al panel - Blood monocytes [#/volume] in blood 0.95 x10'3 /uL low: 0.29x1 0'3/uL high: 0.99x1 0'3/uL normal Not Available Not Available 12/17/2024 14:37:09 12/14/19 25 12/13/2024 CBC W Auto Diffe renti al panel - Blood eosinophils [#/volume] in blood 0 x10'3 /uL low: 0.02x1 0'3/uL high: 0.53x1 0'3/uL low Not Available Not Available 12/17/2024 14:37:09 12/14/19 25 12/13/2024 CBC W Auto Diffe renti al panel - Blood basophils [#/volume] in blood 0.03 x10'3 /uL low: 0.01x1 0'3/uL high: 0.08x1 0'3/uL normal Not Available Not Available 12/17/2024 14:37:09 12/14/19 25 12/13/2024 CBC W Auto Diffe renti al panel - Blood immature granulocytes [#/volume] in blood 0.16 x10'3 /uL low: 0x10'3 /uLhig h: 0.05x1 0'3/uL high Not Available Not Available 12/17/2024 14:37:09 12/14/19 25 12/13/2024 CBC W Auto Diffe renti al panel - Blood nucleated erythrocytes /100 leukocytes [ratio] in blood 0 % high: 0% normal Not Available Not Available 12/17/2024 14:37:09 12/14/19 25 12/13/2024 CBC W Auto Diffe renti al panel - Blood nucleated erythrocytes [#/volume] in blood by automated count 0 x10'3 /uL normal Not Available Not Available 12/18/19 14:37:09 12/15/19 25 12/14/2024 Proca lcito marielena [Mass /volu me] in Serum or Plasm a procalcitoni n [mass/volume ] in serum or plasma 1.25 NG/mL low: 0NG/mL high: 0.08NG /mL high Not Available Not Available 12/17/2024 14:37:11 12/15/19 25 12/14/2024 CBC W Auto Diffe renti al panel - Blood leukocytes [#/volume] in blood by automated count 10.8 x10'3 /uL low: 4.2x10 '3/uLh igh: 10.8x1 0'3/uL normal Not Available Not Available 12/17/2024 14:37:11 12/15/19 25 12/14/2024 CBC W Auto Diffe renti al panel - Blood erythrocytes [#/volume] in blood by automated count 4.16 x10'6 /uL low: 4.1x10 '6/uLh igh: 5.8x10 '6/uL normal Not Available Not Available 12/17/2024 14:37:11 12/15/19 25 12/14/2024 CBC W Auto Diffe renti al panel - Blood hemoglobin [mass/volume ] in blood 12.1 g/dL low: 13.2g/ dLhigh : 17g/dL low Not Available Not Available 12/17/2024 14:37:11 12/15/19 25 12/14/2024 CBC W Auto Diffe renti al panel - Blood hematocrit [volume fraction] of blood by automated count 35.8 % low: 39.3%h igh: 50% low Not Available Not Available 12/17/2024 14:37:11 12/15/19 25 12/14/2024 CBC W Auto Diffe renti al panel - Blood MCV [entitic volume] by automated count 86.1 fL low: 80fLhi gh: 97fL normal Not Available Not Available 12/17/2024 14:37:11 12/15/19 25 12/14/2024 CBC W Auto Diffe renti al panel - Blood MCH [entitic mass] by automated count 29.1 pg low: 27pghi gh: 33pg normal Not Available Not Available 12/17/2024 14:37:11 12/15/19 25 12/14/2024 CBC W Auto Diffe renti al panel - Blood MCHC [mass/volume ] by automated count 33.8 g/dL low: 31g/dL high: 36g/dL normal Not Available Not Available 12/17/2024 14:37:11 12/15/19 25 12/14/2024 CBC W Auto Diffe renti al panel - Blood erythrocyte distribution width [ratio] 14.1 % low: 11.8%h igh: 15.5% normal Not Available Not Available 12/17/2024 14:37:11 12/15/19 25 12/14/2024 CBC W Auto Diffe renti al panel - Blood platelets [#/volume] in blood by automated count 139 x10'3 /uL low: 150x10 '3/uLh igh: 400x10 '3/uL low Not Available Not Available 12/17/2024 14:37:11 12/15/19 25 12/14/2024 CBC W Auto Diffe renti al panel - Blood platelet mean volume [entitic volume] in blood by automated count 9.7 fL low: 9fLhig h: 12.4fL normal Not Available Not Available 12/17/2024 14:37:11 12/15/19 25 12/14/2024 CBC W Auto Diffe renti al panel - Blood neutrophils/ 100 leukocytes in blood 93 % low: 39%hig h: 72% high Not Available Not Available 12/17/2024 14:37:11 12/15/19 25 12/14/2024 CBC W Auto Diffe renti al panel - Blood lymphocytes/ 100 leukocytes in blood 2 % low: 16%hig h: 47% low Not Available Not Available 12/17/2024 14:37:11 12/15/19 25 12/14/2024 CBC W Auto Diffe renti al panel - Blood monocytes/10 0 leukocytes in blood 3 % low: 5%high : 12% low Not Available Not Available 12/17/2024 14:37:11 12/15/19 25 12/14/2024 CBC W Auto Diffe renti al panel - Blood myelocytes/1 00 leukocytes in blood 2 % high: 0% high Not Available Not Available 12/17/2024 14:37:11 12/15/19 25 12/14/2024 CBC W Auto Diffe renti al panel - Blood neutrophils [#/volume] in blood 9.03 x10'3 /uL low: 1.5x10 '3/uLh igh: 8x10'3 /uL high Not Available Not Available 12/17/2024 14:37:11 12/15/19 25 12/14/2024 CBC W Auto Diffe renti al panel - Blood anisocytosis [presence] in blood by light microscopy Labora tory data interp retati on normal Not Available Not Available 14:37:11 12/15/19 25 12/14/2024 CBC W Auto Diffe renti al panel - Blood poikilocytos is [presence] in blood by light microscopy Labora tory data interp retati on normal Not Available Not Available 14:37:11 12/15/19 25 12/14/2024 Basic metab olic 2000 panel - Serum or Plasm a sodium [moles/volum e] in blood 133 mmol/ L low: 137mmo l/Lhig h: 145mmo l/L low Not Available Not Available 12/17/2024 14:37:10 12/15/19 25 12/14/2024 [facility] 1999 panel - Serum or Plasm a potassium [moles/volum e] in serum or plasma 3.6 mmol/ L low: 3.5mmo l/Lhig h: 5.1mmo l/L normal Not Available Not Available 12/17/2024 14:37:10 12/15/19 25 12/14/2024 [facility] 1999 panel - Serum or Plasm a chloride [moles/volum e] in serum or plasma 103 mmol/ L low: 98mmol /Lhigh : 107mmo l/L normal Not Available Not Available 12/17/2024 14:37:10 12/15/19 25 12/14/2024 [facility] 1999 panel - Serum or Plasm a carbon dioxide, total [moles/volum e] in serum or plasma 24 mmol/ L low: 22mmol /Lhigh : 30mmol /L normal Not Available Not Available 12/17/2024 14:37:10 12/15/19 25 12/14/2024 [facility] 1999 panel - Serum or Plasm a anion gap in serum or plasma 9.6 mmol/ L low: 14mmol /Lhigh : 22mmol /L low Not Available Not Available 12/17/2024 14:37:10 12/15/19 25 12/14/2024 [facility] 1999 panel - Serum or Plasm a glucose [mass/volume ] in serum or plasma 163 mg/dL low: 70mg/d Lhigh: 99mg/d L high Not Available Not Available 12/17/2024 14:37:10 12/15/19 25 12/14/2024 [facility] 1999 panel - Serum or Plasm a urea nitrogen [mass or moles/volume ] in serum or plasma 23 mg/dL low: 8mg/dL high: 19mg/d L high Not Available Not Available 12/17/2024 14:37:10 12/15/19 25 12/14/2024 [facility] 1999 panel - Serum or Plasm a creatinine [mass/volume ] in serum or plasma 0.72 mg/dL low: 0.66mg /dLhig h: 1.25mg /dL normal Not Available Not Available 12/17/2024 14:37:10 12/15/19 25 12/14/2024 Basic metab olic 1999 panel - Serum or Plasm a glomerular filtration rate/1.73 sq M.predicted [volume rate/area] in serum, plasma or blood >60 normal Not Available Not Available 12/08 14:37:10 12/15/19 25 12/14/2024 Basic metab olic 1999 panel - Serum or Plasm a calcium [mass/volume ] in serum or plasma 8.6 mg/dL low: 8.4mg/ dLhigh : 10.2mg /dL normal Not Available Not Available 12/17/2024 14:37:10 12/15/19 25 12/14/2024 Mycop lasma pneum oniae IgM Ab [Unit s/vol ume] in Serum by Immun oassa y mycoplasma pneumoniae IgM Ab [units/volum e] in serum by immunoassay <770 text: 0-769 normal Not Available Not Available 12/17/2024 14:37:10 12/15/19 25 12/14/2024 Magne sium [Mass /volu me] in Serum or Plasm a magnesium [mass/volume ] in serum or plasma 1.9 mg/dL low: 1.6mg/ dLhigh : 2.3mg/ dL normal Not Available Not Available 12/17/2024 14:37:10 12/16/19 25 12/15/2024 Strep tococ cus pneum oniae Ag [Pres ence] in Urine by Rapid immun oassa y streptococcu s pneumoniae Ag [presence] in urine by rapid immunoassay Negati ve normal Not Available Not Available 14:37:10 12/16/19 25 12/15/2024 Strep tococ cus pneum oniae Ag [Pres ence] in Urine by Rapid immun oassa y reagent lot number [id number] normal Not Available Not Available 12/08 14:37:10 12/16/19 25 12/15/2024 Strep tococ cus pneum oniae Ag [Pres ence] in Urine by Rapid immun oassa y internal control result Accept able normal Not Available Not Available 14:37:10 12/16/19 25 12/15/2024 [facility] 1999 panel - Serum or Plasm a sodium [moles/volum e] in blood 136 mmol/ L low: 137mmo l/Lhig h: 145mmo l/L low Not Available Not Available 12/17/2024 14:37:10 12/16/19 25 12/15/2024 [facility] 1999 panel - Serum or Plasm a potassium [moles/volum e] in serum or plasma 3.5 mmol/ L low: 3.5mmo l/Lhig h: 5.1mmo l/L normal Not Available Not Available 12/17/2024 14:37:10 12/16/19 25 12/15/2024 [facility] 1999 panel - Serum or Plasm a chloride [moles/volum e] in serum or plasma 106 mmol/ L low: 98mmol /Lhigh : 107mmo l/L normal Not Available Not Available 12/17/2024 14:37:10 12/16/19 25 12/15/2024 [facility] 1999 panel - Serum or Plasm a carbon dioxide, total [moles/volum e] in serum or plasma 28 mmol/ L low: 22mmol /Lhigh : 30mmol /L normal Not Available Not Available 12/17/2024 14:37:10 12/16/19 25 12/15/2024 [facility] 1999 panel - Serum or Plasm a anion gap in serum or plasma 5.5 mmol/ L low: 14mmol /Lhigh : 22mmol /L low Not Available Not Available 12/17/2024 14:37:10 12/16/19 25 12/15/2024 [facility] 1999 panel - Serum or Plasm a glucose [mass/volume ] in serum or plasma 130 mg/dL low: 70mg/d Lhigh: 99mg/d L high Not Available Not Available 12/17/2024 14:37:10 12/16/19 25 12/15/2024 [facility] 1999 panel - Serum or Plasm a urea nitrogen [mass or moles/volume ] in serum or plasma 23 mg/dL low: 8mg/dL high: 19mg/d L high Not Available Not Available 12/17/2024 14:37:10 12/16/19 25 12/15/2024 Basic metab olic 1999 panel - Serum or Plasm a creatinine [mass/volume ] in serum or plasma 0.66 mg/dL low: 0.66mg /dLhig h: 1.25mg /dL normal Not Available Not Available 12/17/2024 14:37:10 12/16/19 25 12/15/2024 Basic metab olic 1999 panel - Serum or Plasm a glomerular filtration rate/1.73 sq M.predicted [volume rate/area] in serum, plasma or blood >60 normal Not Available Not Available 12/08 14:37:10 12/16/19 25 12/15/2024 Basic metab olic 1999 panel - Serum or Plasm a calcium [mass/volume ] in serum or plasma 8.5 mg/dL low: 8.4mg/ dLhigh : 10.2mg /dL normal Not Available Not Available 12/17/2024 14:37:10 12/16/19 25 12/15/2024 CBC W Auto Diffe renti al panel - Blood leukocytes [#/volume] in blood by automated count 6.1 x10'3 /uL low: 4.2x10 '3/uLh igh: 10.8x1 0'3/uL normal Not Available Not Available 12/17/2024 14:37:11 12/16/19 25 12/15/2024 CBC W Auto Diffe renti al panel - Blood erythrocytes [#/volume] in blood by automated count 4.19 x10'6 /uL low: 4.1x10 '6/uLh igh: 5.8x10 '6/uL normal Not Available Not Available 12/17/2024 14:37:11 12/16/19 25 12/15/2024 CBC W Auto Diffe renti al panel - Blood hemoglobin [mass/volume ] in blood 12 g/dL low: 13.2g/ dLhigh : 17g/dL low Not Available Not Available 12/17/2024 14:37:11 12/16/19 25 12/15/2024 CBC W Auto Diffe renti al panel - Blood hematocrit [volume fraction] of blood by automated count 36.7 % low: 39.3%h igh: 50% low Not Available Not Available 12/17/2024 14:37:11 12/16/19 25 12/15/2024 CBC W Auto Diffe renti al panel - Blood MCV [entitic volume] by automated count 87.6 fL low: 80fLhi gh: 97fL normal Not Available Not Available 12/17/2024 14:37:11 12/16/19 25 12/15/2024 CBC W Auto Diffe renti al panel - Blood MCH [entitic mass] by automated count 28.6 pg low: 27pghi gh: 33pg normal Not Available Not Available 12/17/2024 14:37:11 12/16/19 25 12/15/2024 CBC W Auto Diffe renti al panel - Blood MCHC [mass/volume ] by automated count 32.7 g/dL low: 31g/dL high: 36g/dL normal Not Available Not Available 12/17/2024 14:37:11 12/16/19 25 12/15/2024 CBC W Auto Diffe renti al panel - Blood erythrocyte distribution width [ratio] 14.5 % low: 11.8%h igh: 15.5% normal Not Available Not Available 12/17/2024 14:37:11 12/16/19 25 12/15/2024 CBC W Auto Diffe renti al panel - Blood platelets [#/volume] in blood by automated count 156 x10'3 /uL low: 150x10 '3/uLh igh: 400x10 '3/uL normal Not Available Not Available 12/17/2024 14:37:11 12/16/19 25 12/15/2024 CBC W Auto Diffe renti al panel - Blood platelet mean volume [entitic volume] in blood by automated count 9.7 fL low: 9fLhig h: 12.4fL normal Not Available Not Available 12/17/2024 14:37:11 12/16/19 25 12/15/2024 CBC W Auto Diffe renti al panel - Blood neutrophils/ 100 leukocytes in blood 81.3 % low: 39%hig h: 72% high Not Available Not Available 12/17/2024 14:37:11 12/16/19 25 12/15/2024 CBC W Auto Diffe renti al panel - Blood lymphocytes/ 100 leukocytes in blood 5.8 % low: 16%hig h: 47% low Not Available Not Available 12/17/2024 14:37:11 12/16/19 25 12/15/2024 CBC W Auto Diffe renti al panel - Blood monocytes/10 0 leukocytes in blood 11.5 % low: 5%high : 12% normal Not Available Not Available 12/17/2024 14:37:11 12/16/19 25 12/15/2024 CBC W Auto Diffe renti al panel - Blood eosinophils [#/volume] in blood 0 % low: 1%high : 7% low Not Available Not Available 12/17/2024 14:37:11 12/16/19 25 12/15/2024 CBC W Auto Diffe renti al panel - Blood basophils/10 0 leukocytes in blood 0.2 % low: 0%high : 2% normal Not Available Not Available 12/17/2024 14:37:11 12/16/19 25 12/15/2024 CBC W Auto Diffe renti al panel - Blood immature granulocytes /100 leukocytes in blood 1.2 % low: 0%high : 0.5% high Not Available Not Available 12/17/2024 14:37:11 12/16/19 25 12/15/2024 CBC W Auto Diffe renti al panel - Blood neutrophils [#/volume] in blood 4.94 x10'3 /uL low: 1.5x10 '3/uLh igh: 8x10'3 /uL normal Not Available Not Available 12/17/2024 14:37:11 12/16/19 25 12/15/2024 CBC W Auto Diffe renti al panel - Blood lymphocytes [#/volume] in blood 0.35 x10'3 /uL low: 1.07x1 0'3/uL high: 3.43x1 0'3/uL low Not Available Not Available 12/17/2024 14:37:11 12/16/19 25 12/15/2024 CBC W Auto Diffe renti al panel - Blood monocytes [#/volume] in blood 0.7 x10'3 /uL low: 0.29x1 0'3/uL high: 0.99x1 0'3/uL normal Not Available Not Available 12/17/2024 14:37:11 12/16/19 25 12/15/2024 CBC W Auto Diffe renti al panel - Blood eosinophils [#/volume] in blood 0 x10'3 /uL low: 0.02x1 0'3/uL high: 0.53x1 0'3/uL low Not Available Not Available 12/17/2024 14:37:11 12/16/19 25 12/15/2024 CBC W Auto Diffe renti al panel - Blood basophils [#/volume] in blood 0.01 x10'3 /uL low: 0.01x1 0'3/uL high: 0.08x1 0'3/uL normal Not Available Not Available 12/17/2024 14:37:11 12/16/19 25 12/15/2024 CBC W Auto Diffe renti al panel - Blood immature granulocytes [#/volume] in blood 0.07 x10'3 /uL low: 0x10'3 /uLhig h: 0.05x1 0'3/uL high Not Available Not Available 12/17/2024 14:37:11 12/16/19 25 12/15/2024 CBC W Auto Diffe renti al panel - Blood nucleated erythrocytes /100 leukocytes [ratio] in blood 0 % high: 0% normal Not Available Not Available 12/17/2024 14:37:11 12/16/19 25 12/15/2024 CBC W Auto Diffe renti al panel - Blood nucleated erythrocytes [#/volume] in blood by automated count 0 x10'3 /uL normal Not Available Not Available 12/18/19 14:37:11 12/17/19 25 12/16/2024 Gluco se [Mass /volu me] in Capil verna blood by Gluco meter glucose [mass/volume ] in capillary blood by glucometer 166 mg/dL low: 74mg/d Lhigh: 99mg/d L high Not Available Not Available 12/17/2024 14:37:11 12/17/19 25 12/16/2024 Gluco se [Mass /volu me] in Capil verna blood by Gluco meter glucose [mass/volume ] in capillary blood by glucometer 146 mg/dL low: 74mg/d Lhigh: 99mg/d L high Not Available Not Available 12/17/2024 14:37:11 12/17/19 25 12/16/2024 CBC W Auto Diffe renti al panel - Blood leukocytes [#/volume] in blood by automated count 3.3 x10'3 /uL low: 4.2x10 '3/uLh igh: 10.8x1 0'3/uL low Not Available Not Available 12/17/2024 14:37:11 12/17/19 25 12/16/2024 CBC W Auto Diffe renti al panel - Blood erythrocytes [#/volume] in blood by automated count 4.1 x10'6 /uL low: 4.1x10 '6/uLh igh: 5.8x10 '6/uL normal Not Available Not Available 12/17/2024 14:37:11 12/17/19 25 12/16/2024 CBC W Auto Diffe renti al panel - Blood hemoglobin [mass/volume ] in blood 11.8 g/dL low: 13.2g/ dLhigh : 17g/dL low Not Available Not Available 12/17/2024 14:37:11 12/17/19 25 12/16/2024 CBC W Auto Diffe nealti al panel - Blood hematocrit [volume fraction] of blood by automated count 36.2 % low: 39.3%h igh: 50% low Not Available Not Available 12/17/2024 14:37:11 12/17/19 25 12/16/2024 CBC W Auto Diffe nealti al panel - Blood MCV [entitic volume] by automated count 88.3 fL low: 80fLhi gh: 97fL normal Not Available Not Available 12/17/2024 14:37:11 12/17/19 25 12/16/2024 CBC W Auto Diffe nealti al panel - Blood MCH [entitic mass] by automated count 28.8 pg low: 27pghi gh: 33pg normal Not Available Not Available 12/17/2024 14:37:11 12/17/19 25 12/16/2024 CBC W Auto Diffe renti al panel - Blood MCHC [mass/volume ] by automated count 32.6 g/dL low: 31g/dL high: 36g/dL normal Not Available Not Available 12/17/2024 14:37:11 12/17/19 25 12/16/2024 CBC W Auto Diffe brayden al panel - Blood erythrocyte distribution width [ratio] 14.3 % low: 11.8%h igh: 15.5% normal Not Available Not Available 12/17/2024 14:37:11 12/17/19 25 12/16/2024 CBC W Auto Diffe renti al panel - Blood platelets [#/volume] in blood by automated count 158 x10'3 /uL low: 150x10 '3/uLh igh: 400x10 '3/uL normal Not Available Not Available 12/17/2024 14:37:11 12/17/19 25 12/16/2024 CBC W Auto Diffe renti al panel - Blood platelet mean volume [entitic volume] in blood by automated count 9.9 fL low: 9fLhig h: 12.4fL normal Not Available Not Available 12/17/2024 14:37:11 12/17/19 25 12/16/2024 CBC W Auto Diffe renti al panel - Blood neutrophils/ 100 leukocytes in blood 80 % low: 39%hig h: 72% high Not Available Not Available 12/17/2024 14:37:11 12/17/19 25 12/16/2024 CBC W Auto Diffe renti al panel - Blood lymphocytes/ 100 leukocytes in blood 10 % low: 16%hig h: 47% low Not Available Not Available 12/17/2024 14:37:11 12/17/19 25 12/16/2024 CBC W Auto Diffe renti al panel - Blood monocytes/10 0 leukocytes in blood 10 % low: 5%high : 12% normal Not Available Not Available 12/17/2024 14:37:11 12/17/19 25 12/16/2024 CBC W Auto Diffe renti al panel - Blood neutrophils [#/volume] in blood 2.68 x10'3 /uL low: 1.5x10 '3/uLh igh: 8x10'3 /uL normal Not Available Not Available 12/17/2024 14:37:11 12/17/19 25 12/16/2024 CBC W Auto Diffe renti al panel - Blood toxic granules [presence] in blood by light microscopy Labora tornnamdi data interp retati on normal Not Available Not Available 14:37:11 12/17/19 25 12/16/2024 CBC W Auto Diffe renti al panel - Blood variant lymphocytes [presence] in blood by light microscopy Labora mina data interp retati on normal Not Available Not Available 14:37:11 12/17/19 25 12/16/2024 Basic metab olic 1999 panel - Serum or Plasm a sodium [moles/volum e] in blood 134 mmol/ L low: 137mmo l/Lhig h: 145mmo l/L low Not Available Not Available 12/17/2024 14:37:10 12/17/19 25 12/16/2024 Basic metab olic 1999 panel - Serum or Plasm a potassium [moles/volum e] in serum or plasma 3.8 mmol/ L low: 3.5mmo l/Lhig h: 5.1mmo l/L normal Not Available Not Available 12/17/2024 14:37:10 12/17/19 25 12/16/2024 Basic metab olic 1999 panel - Serum or Plasm a chloride [moles/volum e] in serum or plasma 104 mmol/ L low: 98mmol /Lhigh : 107mmo l/L normal Not Available Not Available 12/17/2024 14:37:10 12/17/19 25 12/16/2024 Basic metab olic 1999 panel - Serum or Plasm a carbon dioxide, total [moles/volum e] in serum or plasma 28 mmol/ L low: 22mmol /Lhigh : 30mmol /L normal Not Available Not Available 12/17/2024 14:37:10 12/17/19 25 12/16/2024 Basic metab olic 1999 panel - Serum or Plasm a anion gap in serum or plasma 5.8 mmol/ L low: 14mmol /Lhigh : 22mmol /L low Not Available Not Available 12/17/2024 14:37:10 12/17/19 25 12/16/2024 Basic metab olic 1999 panel - Serum or Plasm a glucose [mass/volume ] in serum or plasma 148 mg/dL low: 70mg/d Lhigh: 99mg/d L high Not Available Not Available 12/17/2024 14:37:10 12/17/19 25 12/16/2024 Basic metab olic 1999 panel - Serum or Plasm a urea nitrogen [mass or moles/volume ] in serum or plasma 24 mg/dL low: 8mg/dL high: 19mg/d L high Not Available Not Available 12/17/2024 14:37:10 12/17/19 25 12/16/2024 Basic metab olic 1999 panel - Serum or Plasm a creatinine [mass/volume ] in serum or plasma 0.6 mg/dL low: 0.66mg /dLhig h: 1.25mg /dL low Not Available Not Available 12/17/2024 14:37:10 12/17/19 25 12/16/2024 Basic metab olic 1999 panel - Serum or Plasm a glomerular filtration rate/1.73 sq M.predicted [volume rate/area] in serum, plasma or blood >60 normal Not Available Not Available 12/08 14:37:10 12/17/19 25 12/16/2024 Basic metab olic 1999 panel - Serum or Plasm a calcium [mass/volume ] in serum or plasma 8.5 mg/dL low: 8.4mg/ dLhigh : 10.2mg /dL normal Not Available Not Available 12/17/2024 14:37:10 12/18/19 25 12/17/2024 CBC W Auto Diffe renti al panel - Blood leukocytes [#/volume] in blood by automated count 3.4 x10'3 /uL low: 4.2x10 '3/uLh igh: 10.8x1 0'3/uL low Not Available Not Available 12/17/2024 14:37:11 12/18/19 25 12/17/2024 CBC W Auto Diffe renti al panel - Blood erythrocytes [#/volume] in blood by automated count 4 x10'6 /uL low: 4.1x10 '6/uLh igh: 5.8x10 '6/uL low Not Available Not Available 12/17/2024 14:37:11 12/18/19 25 12/17/2024 CBC W Auto Diffe renti al panel - Blood hemoglobin [mass/volume ] in blood 11.8 g/dL low: 13.2g/ dLhigh : 17g/dL low Not Available Not Available 12/17/2024 14:37:11 12/18/19 25 12/17/2024 CBC W Auto Diffe renti al panel - Blood hematocrit [volume fraction] of blood by automated count 34.9 % low: 39.3%h igh: 50% low Not Available Not Available 12/17/2024 14:37:11 12/18/19 25 12/17/2024 CBC W Auto Diffe renti al panel - Blood MCV [entitic volume] by automated count 87.3 fL low: 80fLhi gh: 97fL normal Not Available Not Available 12/17/2024 14:37:11 12/18/19 25 12/17/2024 CBC W Auto Diffe renti al panel - Blood MCH [entitic mass] by automated count 29.5 pg low: 27pghi gh: 33pg normal Not Available Not Available 12/17/2024 14:37:11 12/18/19 25 12/17/2024 CBC W Auto Diffe renti al panel - Blood MCHC [mass/volume ] by automated count 33.8 g/dL low: 31g/dL high: 36g/dL normal Not Available Not Available 12/17/2024 14:37:11 12/18/19 25 12/17/2024 CBC W Auto Diffe renti al panel - Blood erythrocyte distribution width [ratio] 13.9 % low: 11.8%h igh: 15.5% normal Not Available Not Available 12/17/2024 14:37:11 12/18/19 25 12/17/2024 CBC W Auto Diffe renti al panel - Blood platelets [#/volume] in blood by automated count 174 x10'3 /uL low: 150x10 '3/uLh igh: 400x10 '3/uL normal Not Available Not Available 12/17/2024 14:37:11 12/18/19 25 12/17/2024 CBC W Auto Diffe renti al panel - Blood platelet mean volume [entitic volume] in blood by automated count 10 fL low: 9fLhig h: 12.4fL normal Not Available Not Available 12/17/2024 14:37:11 12/18/19 25 12/17/2024 CBC W Auto Diffe renti al panel - Blood neutrophils/ 100 leukocytes in blood 91 % low: 39%hig h: 72% high Not Available Not Available 12/17/2024 14:37:11 12/18/19 25 12/17/2024 CBC W Auto Diffe renti al panel - Blood lymphocytes/ 100 leukocytes in blood 2 % low: 16%hig h: 47% low Not Available Not Available 12/17/2024 14:37:11 12/18/19 25 12/17/2024 CBC W Auto Diffe renti al panel - Blood monocytes/10 0 leukocytes in blood 7 % low: 5%high : 12% normal Not Available Not Available 12/17/2024 14:37:11 12/18/19 25 12/17/2024 CBC W Auto Diffe renti al panel - Blood neutrophils [#/volume] in blood 2.74 x10'3 /uL low: 1.5x10 '3/uLh igh: 8x10'3 /uL normal Not Available Not Available 12/17/2024 14:37:11 12/18/19 25 12/17/2024 CBC W Auto Diffe renti al panel - Blood poikilocytos is [presence] in blood by light microscopy Labora tory data interp retati on normal Not Available Not Available 14:37:11 12/18/19 25 12/17/2024 CBC W Auto Diffe renti al panel - Blood dacrocytes [presence] in blood by light microscopy Labora tory data interp retati on normal Not Available Not Available 14:37:11 12/18/19 25 12/17/2024 Basic metab olic 1999 panel - Serum or Plasm a sodium [moles/volum e] in blood 133 mmol/ L low: 137mmo l/Lhig h: 145mmo l/L low Not Available Not Available 12/17/2024 14:37:10 12/18/19 25 12/17/2024 Basic metab olic 1999 panel - Serum or Plasm a potassium [moles/volum e] in serum or plasma 3.8 mmol/ L low: 3.5mmo l/Lhig h: 5.1mmo l/L normal Not Available Not Available 12/17/2024 14:37:10 12/18/19 25 12/17/2024 Basic metab olic 1999 panel - Serum or Plasm a chloride [moles/volum e] in serum or plasma 105 mmol/ L low: 98mmol /Lhigh : 107mmo l/L normal Not Available Not Available 12/17/2024 14:37:10 12/18/19 25 12/17/2024 [facility] 1999 panel - Serum or Plasm a carbon dioxide, total [moles/volum e] in serum or plasma 28 mmol/ L low: 22mmol /Lhigh : 30mmol /L normal Not Available Not Available 12/17/2024 14:37:10 12/18/19 25 12/17/2024 [facility] 1999 panel - Serum or Plasm a anion gap in serum or plasma 3.8 mmol/ L low: 14mmol /Lhigh : 22mmol /L low Not Available Not Available 12/17/2024 14:37:10 12/18/19 25 12/17/2024 [facility] 1999 panel - Serum or Plasm a glucose [mass/volume ] in serum or plasma 160 mg/dL low: 70mg/d Lhigh: 99mg/d L high Not Available Not Available 12/17/2024 14:37:10 12/18/19 25 12/17/2024 [facility] 1999 panel - Serum or Plasm a urea nitrogen [mass or moles/volume ] in serum or plasma 23 mg/dL low: 8mg/dL high: 19mg/d L high Not Available Not Available 12/17/2024 14:37:10 12/18/19 25 12/17/2024 [facility] 1999 panel - Serum or Plasm a creatinine [mass/volume ] in serum or plasma 0.7 mg/dL low: 0.66mg /dLhig h: 1.25mg /dL normal Not Available Not Available 12/17/2024 14:37:10 12/18/19 25 12/17/2024 [facility] 1999 panel - Serum or Plasm a glomerular filtration rate/1.73 sq M.predicted [volume rate/area] in serum, plasma or blood >60 normal Not Available Not Available 12/08 14:37:10 12/18/19 25 12/17/2024 [facility] 1999 panel - Serum or Plasm a calcium [mass/volume ] in serum or plasma 8.5 mg/dL low: 8.4mg/ dLhigh : 10.2mg /dL normal Not Available Not Available 12/17/2024 14:37:10 04/02/20 25 04/03/2025 IRON, TIBC AND KAY TIN PANEL iron, total 14 mcg/d L 50-180 low Not Available [address], [address], 04/03/2025 03:31:28 04/02/20 25 04/03/2025 IRON, TIBC AND KAY TIN PANEL iron binding capacity 378 mcg/d L_(ca lc) 250-42 5 normal Not Available [address], [address], 04/03/2025 03:31:28 04/02/20 25 04/03/2025 IRON, TIBC AND KAY TIN PANEL % saturation 4 %_(ca lc) 20-48 low Not Available [address], [address], 04/03/2025 03:31:28 04/02/20 25 04/03/2025 IRON, TIBC AND KAY TIN PANEL ferritin 6 NG/mL 24-380 low Not Available [address], [address], 04/03/2025 03:31:28 04/02/20 25 04/03/2025 LIPID PANEL , STAND TERRY cholesterol, total 150 mg/dL <200 normal Not Available [address], [address], 04/03/2025 03:31:29 04/02/20 25 04/03/2025 LIPID PANEL , STAND TERRY HDL cholesterol 67 mg/dL > or = 40 normal Not Available [address], [address], 04/03/2025 03:31:29 04/02/20 25 04/03/2025 LIPID PANEL , STAND TERRY triglyceride s 47 mg/dL <150 normal Not Available [address], [address], 04/03/2025 03:31:29 06/04/03/2025 LIPID PANEL , STAND TERRY LDL-choleste rol 70 mg/dL _(sloan c) normal Refer ence range : <100 Micaela able range <100 mg/dL for prima ry preve ntion ; <70 mg/dL for patie nts with CHD or diabe tic patie nts with > or = 2 CHD risk facto rs. LDL-C is now calcu lated using the Lilly n-Hop kins calcu bertrand n, which is a valid ated novel metho d provi ding jessy r accur acy than the Fried kay equat ion in the estim ation of LDL-C . Lilly n SS et al. CHUCKY. 2013; 310(1 9): 2061- 2068 (http ://ed ucati on.Inmob[employer]ie tatianaNov[facility]. Plum Baby/f aq/FA Q164) Not Available [facility] [address] [place], [address], 04/03/2025 03:31:29 04/02/2004/03/2025 LIPID PANEL , STAND TERRY chol/HDLC ratio 2.2 (calc ) <5.0 normal Not Available [facility] [address] [place], [address], 04/03/2025 03:31:29 04/02/2004/03/2025 LIPID PANEL , STAND TERRY non HDL cholesterol 83 mg/dL _(sloan c) <130 normal For patie nts with diabe dereje plus 1 major ASCVD risk facto r, treat ing to a non-H DL-C goal of <100 mg/dL (LDL- C of <70 mg/dL ) is consi dered a thera peuti c optio n. Not Available [facility] [address] [place], [address], 04/03/2025 03:31:29 04/02/2004/03/2025 COMPR EHENS NITA METAB OLIC PANEL glucose 101 mg/dL 65-99 high Fasti ng refer ence inter alex For someo ne witho ut known diabe dereje, a gluco se value betwe en 100 and 125 mg/dL is consi stent with predi abete s and shoul d be confi rmed with a follo w-up test. Not Available [address], [address], 04/03/2025 03:31:30 04/02/20 25 04/03/2025 COMPR EHENS NITA METAB OLIC PANEL urea nitrogen (BUN) 16 mg/dL 7-25 normal Not Available [address], [address], 04/03/2025 03:31:30 04/02/2004/03/2025 COMPR EHENS NITA METAB OLIC PANEL creatinine 0.72 mg/dL 0.70-1 .28 normal Not Available [address], [address], 04/03/2025 03:31:30 04/02/20 25 04/03/2025 COMPR EHENS NITA METAB OLIC PANEL eGFR 98 mL/mi n/1.7 3m2 > or = 60 normal Not Available [address], [address], 04/03/2025 03:31:30 04/02/2004/03/2025 COMPR EHENS NITA METAB OLIC PANEL BUN/creatini ne ratio SEE NOTE: (calc ) 6-22 Not Repor axel: BUN and Creat inine are withi n refer ence range . Not Available [address], [address], 04/03/2025 03:31:30 04/02/2004/03/2025 COMPR EHENS NITA METAB OLIC PANEL sodium 140 mmol/ L 135-14 6 normal Not Available [address], [address], 04/03/2025 03:31:30 04/02/20 25 04/03/2025 COMPR EHENS NITA METAB OLIC PANEL potassium 3.8 mmol/ L 3.5-5. 3 normal Not Available [address], [address], 04/03/2025 03:31:30 04/02/2004/03/2025 COMPR EHENS NITA METAB OLIC PANEL chloride 104 mmol/ L 98-110 normal Not Available [address], [address], 04/03/2025 03:31:30 04/02/2004/03/2025 COMPR EHENS NITA METAB OLIC PANEL carbon dioxide 30 mmol/ L 20-32 normal Not Available [address], [address], 04/03/2025 03:31:30 04/02/20 25 04/03/2025 COMPR EHENS NITA METAB OLIC PANEL calcium 8.7 mg/dL 8.6-10 .3 normal Not Available [address], [address], 04/03/2025 03:31:30 04/02/2004/03/2025 COMPR EHENS NITA METAB OLIC PANEL protein, total 6.1 g/dL 6.1-8. 1 normal Not Available [address], [address], 04/03/2025 03:31:30 04/02/20 25 04/03/2025 COMPR EHENS NITA METAB OLIC PANEL albumin 3.9 g/dL 3.6-5. 1 normal Not Available [address], [address], 04/03/2025 03:31:30 04/02/2004/03/2025 COMPR EHENS NITA METAB OLIC PANEL globulin 2.2 g/dL_ (calc ) 1.9-3. 7 normal Not Available [address], [address], 04/03/2025 03:31:30 04/02/2004/03/2025 COMPR EHENS NITA METAB OLIC PANEL albumin/glob ulin ratio 1.8 (calc ) 1.0-2. 5 normal Not Available [address], [address], 04/03/2025 03:31:30 04/02/2004/03/2025 COMPR EHENS NITA METAB OLIC PANEL bilirubin, total 0.9 mg/dL 0.2-1. 2 normal Not Available [address], [address], 04/03/2025 03:31:30 04/02/2004/03/2025 COMPR EHENS NITA METAB OLIC PANEL alkaline phosphatase 82 U/L 35-144 normal Not Available [address], [address], 04/03/2025 03:31:30 04/02/20 25 04/03/2025 COMPR EHENS NITA METAB OLIC PANEL AST 17 U/L 10-35 normal Not Available [address], [address], 04/03/2025 03:31:30 04/02/2004/03/2025 COMPR EHENS NITA METAB OLIC PANEL ALT 12 U/L 9-46 normal Not Available [address], [address], 04/03/2025 03:31:30 04/02/2004/03/2025 RETIC ULOCY TE COUNT reticulocyte count, automated 1.9 % normal Not Available [address], [address], 04/03/2025 03:31:31 04/02/2004/03/2025 RETIC ULOCY TE COUNT reticulocyte , absolute 90137 cells /uL [address]- [address] normal Not Available [address], [address], 04/03/2025 03:31:31 04/02/2004/03/2025 CBC (INCL UDES DIFF/ PLT) white blood cell count 4.5 thous and/u L 3.8-10 .8 normal Not Available [address], [address], 04/03/2025 03:31:32 04/02/2004/03/2025 CBC (INCL UDES DIFF/ PLT) red blood cell count 3.89 stefania on/uL 4.20-5 .80 low Not Available [place] [address], [address], 04/03/2025 03:31:32 04/02/2004/03/2025 CBC (INCL UDES DIFF/ PLT) hemoglobin 9.7 g/dL 13.2-1 7.1 low Not Available [place] [address], [address], 04/03/2025 03:31:32 04/02/2004/03/2025 CBC (INCL UDES DIFF/ PLT) hematocrit 33.1 % 38.5-5 0.0 low Not Available [place] [address], [address], 04/03/2025 03:31:32 04/02/2004/03/2025 CBC (INCL UDES DIFF/ PLT) MCV 85.1 fL 80.0-1 00.0 normal Not Available [place] [address], [address], 04/03/2025 03:31:32 04/02/2004/03/2025 CBC (INCL UDES DIFF/ PLT) MCH 24.9 pg 27.0-3 3.0 low Not Available [address], [address], 04/03/2025 03:31:32 04/02/2004/03/2025 CBC (INCL UDES DIFF/ PLT) MCHC 29.3 g/dL 32.0-3 6.0 low For adult s, a sligh t decre ase in the calcu lated MCHC value (in the range of 30 to 32 g/dL) is most likel y not clini fanny signi mayte t; ruth er, it shoul d be inter prete d with cauti on in corre lat n with other red cell miguel eters and the patie nt's clini sloan condi tion. Not Available [facility] [address], [address], 04/03/2025 03:31:32 04/02/2004/03/2025 CBC (INCL UDES DIFF/ PLT) RDW 14.1 % 11.0-1 5.0 normal Not Available [facility] [address], [address], 04/03/2025 03:31:32 04/02/2004/03/2025 CBC (INCL UDES DIFF/ PLT) platelet count 253 thous and/u L 140-40 0 normal Not Available [address], [address], 04/03/2025 03:31:32 04/02/2004/03/2025 CBC (INCL UDES DIFF/ PLT) MPV 9.3 fL 7.5-12 .5 normal Not Available [facility] [address], [address], 04/03/2025 03:31:32 04/02/20 25 04/03/2025 CBC (INCL UDES DIFF/ PLT) absolute neutrophils 2511 cells /uL 1500-7 800 normal Not Available [facility] [address], [address], 04/03/2025 03:31:32 04/02/2004/03/2025 CBC (INCL UDES DIFF/ PLT) absolute lymphocytes 806 cells /uL 850-39 00 low Not Available [address], [address], 04/03/2025 03:31:32 04/02/2004/03/2025 CBC (INCL UDES DIFF/ PLT) absolute monocytes 882 cells /uL 200-95 0 normal Not Available [address], [address], 04/03/2025 03:31:32 04/02/2004/03/2025 CBC (INCL UDES DIFF/ PLT) absolute eosinophils 252 cells /uL 15-500 normal Not Available [address], [address], 04/03/2025 03:31:32 04/02/2004/03/2025 CBC (INCL UDES DIFF/ PLT) absolute basophils 50 cells /uL 0-200 normal Not Available [address], [address], 04/03/2025 03:31:32 04/02/20 25 04/03/2025 CBC (INCL UDES DIFF/ PLT) neutrophils 55.8 % normal Not Available [address], [address], 04/03/2025 03:31:32 04/02/2004/03/2025 CBC (INCL UDES DIFF/ PLT) lymphocytes 17.9 % normal Not Available [facility] [address], [address], 04/03/2025 03:31:32 04/02/20 25 04/03/2025 CBC (INCL UDES DIFF/ PLT) monocytes 19.6 % normal Not Available [facility] [address], [address], 04/03/2025 03:31:32 04/02/20 25 04/03/2025 CBC (INCL UDES DIFF/ PLT) eosinophils 5.6 % normal Not Available [address], [address], 04/03/2025 03:31:32 04/02/20 25 04/03/2025 CBC (INCL UDES DIFF/ PLT) basophils 1.1 % normal Not Available [address], [address], 04/03/2025 03:31:32 04/02/20 25 04/03/2025 VITAM IN B12/F OLATE , SERUM PANEL vitamin B12 442 pg/mL 200-11 00 normal Not Available [address], [address], 04/03/2025 03:31:33 04/02/20 25 04/03/2025 VITAM IN B12/F OLATE , SERUM PANEL folate, serum 24.0 NG/mL normal Refer ence Range Low: <3.4 Borde rline : 3.4-5 .4 Livia l: >5.4 Not Available [address], [address], 04/03/2025 03:31:33 12/14/19 25 12/13/2024 XR, chest No observ ation record ed. [address], [address], 12/14/2024 15:58:12 03/04/20 25 03/04/2025 XR, chest , 1 view No observ ation record ed. [address], [place], [address], 03/05/2025 17:28:53 03/04/20 25 03/04/2025 CT, angio gram, chest , w/ contr ast No observ ation record ed. [address], [place], [address], 03/05/2025 17:32:34 03/05/20 25 03/05/2025 stres s echoc ardio gram with doppl er color flow (PROC ) No observ ation record ed. [facility] [address], [place], [address], 03/06/2025 11:31:31 03/05/20 25 03/05/2025 US, cucale x, zoeou s, extre mity, compl ete No observ ation record ed. [facility] [address], [place], [address], 03/06/2025 11:32:07 Result Notes None recorded. Problems Name Problem SNOMED Code Status Onset Date Resolution Date Notes Provider Name and Address Organization Details Recorded Time Essential hypertension 23740968 Active 2023 Wendy Cruz MD Attn: Juanito kerr,[address] [place], [address], [facility] - [facility] 4 22:02:01 Asthma 693322205 Active 2023 Wendy Cruz MD Attn: Juanito kerr,[address] [place], [address], [facility] - [facility] 4 22:02:04 Granulomatous hepatitis 24693162 Active 2023 Wendy Cruz MD Attn: Juanito kerr,[address] [place], [address], [place] - [facility] 4 22:02:05 Gastroesophage al reflux disease without esophagitis 314795734 Active 2023 Wendy Cruz MD Attn: Juanito kerr,[address] [place], [address], [place] - [facility] 4 22:02:06 Anemia 465360785 Active 2024 Dae Cuenca MA [facility] [place], [place] - [facility] 5 12:52:11 Problem Notes None recorded. Procedures Surgical History Date Name Laterality Status Provider Name and Address Organization Details Recorded Time Knee Surgery completed Shauna Rogers MA [place] - [facility] 01/18/2024 12:25:37 Imaging Results None recorded. Procedure Notes None recorded. Medical Equipment None Reported. Allergies No known drug allergies Medications Name Sig Start Date Stop Date Status Note LastModified by Organization Details LastModified Time nifedipine ER 30 mg tablet,exte nded release 24 hr TAKE 1 TABLET BY MOUTH EVERY DAY IN THE MORNING active Not Available Not Available No t Available nystatin 100,000 unit/mL oral suspension SWISH AND SWALLOW 5ML THREE TIMES DAILY FOR TEN DAYS 03/27 completed Not Available Not Available Not Available prednisone 10 mg tablet PLEASE SEE ATTACHED FOR DETAILED DIRECTION S 03/27 completed Not Available Not Available Not Available azithromyci n 250 mg tablet TAKE 2 TABLETS BY MOUTH TWICE A DAY 03/27 completed Not Available Not Available Not Available prednisone 20 mg tablet TAKE 2 TABLETS BY MOUTH EVERY DAY FOR 5 DAYS 01/17 completed Not Available Not Available Not Available dexamethaso ne 6 mg tablet TAKE 1 TABLET BY MOUTH EVERY DAY 12/28 completed Not Available Not Available Not Available fluorouraci l 5 % topical cream PLEASE SEE ATTACHED FOR DETAILED DIRECTION S 03/27 completed Not Available Not Available Not Available prednisone 5 mg tablet TAKE 2 TABLETS BY MOUTH X 10 DAYS THEN TAKE 1 TABLET DAILY X 10 DAYS 01/17 completed Not Available Not Available Not Available nifedipine ER 30 mg tablet,exte nded release TAKE 1 TABLET BY MOUTH EVERY DAY active Not Available Not Available No t Available amlodipine 5 mg tablet TAKE 1 TABLET BY MOUTH EVERY DAY 03/27 completed Not Available Not Available Not Available pantoprazol e 40 mg tablet,alhaji yed release TAKE 1 TABLET BY MOUTH EVERY DAY active Not Available Not Available No t Available lisinopril 20 mg-hydrochl orothiazide 25 mg tablet TAKE 1 TABLET BY MOUTH EVERY DAY active Not Available Not Available No t Available albuterol sulfate HFA 90 mcg/actuati on aerosol inhaler INHALE 2 PUFFS BY MOUTH EVERY 4 HOURS active Not Available Not Available No t Available alfuzosin ER 10 mg tablet,exte nded release 24 hr TAKE 1 TABLET BY MOUTH EVERY DAY active Not Available Not Available No t Available Symbicort 160 mcg-4.5 mcg/actuati on HFA aerosol inhaler TAKE 2 PUFFS BY MOUTH TWICE A DAY 01/17 completed Not Available Not Available Not Available Eliquis 5 mg tablet TAKE 1 TABLET BY MOUTH TWICE A DAY active Not Available Not Available No t Available guaifenesin ER 600 mg tablet, extended release 12 hr TAKE 2 TABLETS BY MOUTH EVERY 12 HOURS active Not Available Not Available No t Available Incruse Ellipta 62.5 mcg/actuati on powder for inhalation INHALE 1 PUFF BY MOUTH EVERY DAY 03/27 completed Not Available Not Available Not Available Breztri Aerosphere 160 mcg-9mcg-4. 8mcg/actuat ion HFA aerosol inhaler TAKE 2 PUFFS BY MOUTH TWICE A DAY active Not Available Not Available No t Available Paxlovid 300 mg (150 mg x 2)-100 mg tablets in a dose pack TAKE 3 TABLETS BY MOUTH TWICE A DAY FOR 5 DAYS OVER $300 W/MED D 12/28 completed Not Available Not Available Not Available Vitals Date Recorded Body height Body mass index (BMI) Body weight Heart rate Oxygen saturation Oxygen saturation in Arterial blood by Pulse oximetry Systolic And Diastolic Provider Name and Address Organization Details Last Updated DateTime 5 187.96 cm 25.6 kg/m2 06180.4 g 67 /min 97 % 97 % 150/80 mm[Hg] Leatha [facility] 5 12:29:15 Date Recorded Body weight Body mass index (BMI) Body height Oxygen saturation Oxygen saturation in Arterial blood by Pulse oximetry Heart rate Systolic And Diastolic Provider Name and Address Organization Details Last Updated DateTime 4 33843.2 1 g 26.7 kg/m2 187.96 cm 97 % 97 % 70 /min 120/70 mm[Hg] Shauna Rogers MA [facility] 4 12:32:21 Date Recorded Body height Body mass index (BMI) Body weight Heart rate Oxygen saturation Oxygen saturation in Arterial blood by Pulse oximetry Systolic And Diastolic Provider Name and Address Organization Details Last Updated DateTime 5 187.96 cm 26.4 kg/m2 93235.3 1 g 83 /min 97 % 97 % 150/76 mm[Hg] Leatha Barnes [facility] 5 12:00:59 Date Recorded Body height Body mass index (BMI) Body weight Heart rate Systolic And Diastolic Provider Name and Address Organization Details Last Updated DateTime 05/23/2024 187.96 cm 26.3 kg/m2 77192.8 g 73 /min 126/66 mm[Hg] Shauna Rogers MA [facility] 05/23/2024 10:56:36 Date Recorded Body height Body mass index (BMI) Body weight Heart rate Oxygen saturation Oxygen saturation in Arterial blood by Pulse oximetry Systolic And Diastolic Provider Name and Address Organization Details Last Updated DateTime 187.96 cm 26.6 kg/m2 33220.6 2 g 81 /min 97 % 97 % 130/68 mm[Hg] Dolores Hernandez MA [facility] 09:44:14 Social History Question Answer Notes LastModified by Organizat ion Details LastModified Time Tobacco Smoking Status Never Smoker Shauna Rogers MA [facility] 01/18/2024 12:24:30 Do You Have An Advance Directive? No Information not available 01/18/2024 Are You Blind Or Do You Have Difficulty Seeing? No Information not available 01/18/2024 What Is Your Level Of Caffeine Consumption? Moderate Coffee & Soda Information not available 05/29/2024 In The 14 Days Before Symptom Onset, Have You Had Close Contact With A Laboratory-confir med COVID-19 While That Case Was Ill? No Information not available 12/28/2024 In The 14 Days Before Symptom Onset, Have You Had Close Contact With A Person Who Is Under Investigation For COVID-19 While That Person Was Ill? No Information not available 12/28/2024 Have You Been To An Area Known To Be High Risk For COVID-19? No Information not available 12/28/2024 Are You Deaf Or Do You Have Serious Difficulty Hearing? Yes Right Ear Information not available 05/29/2024 What Type Of Diet Are You Following? REGULAR Information not available 05/29/2024 What Is The Highest Grade Or Level Of School You Have Completed Or The Highest Degree You Have Received? [id number] Information not available 05/29/2024 Are There Any Guns Present In Your Home? Yes Information not available 05/29/2024 In The Past 7 Days, How Many Days Did You Exercise? 7 Information not available 05/29/2024 On The Days When You Exercised, How Long Did You Exercise Each Day (in Minutes)? 30 Information not available 05/29/2024 How Intense Was Your Typical Exercise? Light (stretching Or Slow Walking) Information not available 05/29/2024 In The Past 7 Days, How Much Pain Have You [place]? None Information not available 05/29/2024 In General, Would You Say You Health Is: Good Information not available 05/29/2024 How Would You Describe The Condition Of Your Mouth And Teeth- Including False Teeth Or Dentures? Good Information not available 05/29/2024 Each Night, How Many Hours Of Sleep Do You Get? 6 Information no t available 05/29/2024 Has Anyone Ever Told You That You Snore? No Information not available 05/29/2024 In The Past 7 Days, How Often Have You [place] Sleepy In The Daytime? Usually Information not available 05/29/2024 On They Days When You Drank Alcohol, How Often Did You Have 4 Or More Drinks At A Time? 2-3 Times During The Week Information not available 05/29/2024 # Alcohol Drinks Per Week 18 Information not available 05/29/2024 What Was The Date Of Your Most Recent Tobacco Screening? 03/27/2025 Information not available 03/27/2025 What Is Your Relationship Status? Information not available 01/18/2024 Do You Use Your Seat Belt Or Car Seat Routinely? Yes Information not available 01/18/2024 Do You Have Smoke And Carbon Monoxide Detectors In Your Home? Yes Information not available 01/18/2024 Do You Use Sunscreen Routinely? No Information not available 05/29/2024 Has Tobacco Cessation Counseling Been Provided? No Information not available 12/28/2024 Sex: Male Functional Status Question Answer Note LastModified by Organizat ion Details LastModified Time Do you use any illicit or recreational drugs? No Information not available 01/18/2024 Do you or have you ever used any other forms of tobacco or nicotine? No Information not available 01/18/2024 What is your level of alcohol consumption? Moderate 18 beers/week Information not available 05/29/2024 Are you currently employed? No retired Information not available 01/18/2024 Are you able to care for yourself? Yes Information not available 01/18/2024 What is your exercise level? Moderate daily walks & plays golf Information not available 05/29/2024 Mental Status Question Answer Note LastModified by Organization D etails LastModified Time Do you feel stressed (tense, restless, nervous, or anxious, or unable to sleep at night)? [id number] Information not available 01/18/2024 Family History Relationship Description Onset Age of this Age Resolved Age Notes LastModified by Organization Details LastModified Time Brother Heart disease [email or web address] Not available 01/08 12:24:02 Brother Hypertensive disorder [email or web address] Not available 01/08 12:24:13 Medical History Condition Response Coronary Artery Disease N Other N High Blood Pressure Y Atrial Fibrillation N Kidney or Bladder Problems N Thyroid Problems N GI Problems N Depression N COPD Y Blood Clots N Have you had a mammogram in the last yea r? N Skin Problems N Anemia N Heart Attack (NH) N Anxiety Disorder N Diabetes N Muscle, Joint, or Bone Problems N Seizures/Epilepsy N Have you had a colonoscopy in the last 1 0 years? N Acid Reflux (GERD) N Cancer N Stroke N Asthma Y Allergies N Have you had a PSA blood test in the las t year? Y High Cholesterol N Hepatitis N Liver Disease N Headaches N Heart Failure N Osteoporosis N Immunizations Vaccine Type Date Status Note Provider Nam e and Address Organization Details Recorded Time Influenza, high-dose, quadrivalent, PF 2 completed VINAY Velasquez, [place] [facility] 05/23/2024 10:54:36 Influenza, adjuvanted, quadrivalent, PF 3 completed VIN[place], [place] [facility] 05/23/2024 10:54:36 Influenza, adjuvanted, quadrivalent, PF 1 [place] VIN[place] [facility] 05/23/2024 10:54:36 COVID-19, mRNA, LNP-S, PF, 100 mcg/0.5mL dose or 50 mcg/0.25mL dose 1 [place] VIN[place] [facility] 05/23/2024 10:54:36 COVID-19, mRNA, LNP-S, PF, 100 mcg/0.5mL dose or 50 mcg/0.25mL dose 1 [place] VIN[place] [facility] 05/23/2024 10:54:36 COVID-19, mRNA, LNP-S, PF, 100 mcg/0.5mL dose or 50 mcg/0.25mL dose 2 completed VINAY [place] [facility] 05/23/2024 10:54:36 COVID-19, mRNA, LNP-S, PF, 100 mcg/0.5mL dose or 50 mcg/0.25mL dose 1 completed VIN[place] [facility] 05/23/2024 10:54:36 COVID-19, mRNA, LNP-S, bivalent, PF, 50 mcg/0.5 mL or 25mcg/0.25 mL dose 2 completed [place]IN[place] [facility] 05/23/2024 10:54:36 RSV, recombinant, protein subunit RSVpreF, adjuvant reconstituted, 0.5 mL, PF 3 completed [place] [facility] 05/23/2024 10:54:36 COVID-19, mRNA, LNP-S, PF, aquilino-sucrose, 30 mcg/0.3 mL 3 [place] [facility] 05/23/2024 10:54:36 Pneumococcal conjugate PCV 13 9 [place] [facility] 05/23/2024 10:54:36 Influenza, high-dose, trivalent, PF 9 completed [place] [facility] 05/23/2024 10:54:36 Influenza, high-dose, trivalent, PF 8 completed [place] [facility] 05/23/2024 10:54:36 Influenza, split virus, trivalent, preservative 4 completed [place] [facility] 05/23/2024 10:54:36 Hep B, adult 2 completed Shauna Rogers [place], [place] [facility] 05/23/2024 10:54:36 Hep B, adult 2 completed Shauna [place] [facility] 05/23/2024 10:54:36 Hep B, adult 2 completed [place] [facility] 05/23/2024 10:54:36 Influenza, split virus, quadrivalent, PF 7 completed [place] [facility] 05/23/2024 10:54:36 Influenza, split virus, quadrivalent, PF 7 [place] [facility] 05/23/2024 10:54:36 Influenza, high-dose, trivalent, PF 4 completed Not Available [facility] 03/27/2025 11:50:26 COVID-19, mRNA, LNP-S, PF, aquilino-sucrose, 30 mcg/0.3 mL 4 completed Not Available [facility] 03/27/2025 11:50:26 Pneumococcal conjugate PCV20, polysaccharide RLC409 conjugate, adjuvant, PF 4 completed Wendy Cruz MD Attn: [address] [place], [address], [place] [facility] 05/29/2024 23:35:24 Tdap 5 completed Wendy Cruz MD Attn: Accounting[address] [facility], [place], [address], [place] [facility] 12/29/2024 14:55:51 Past Encounters Encounter ID Performer Location Encounter Start Date Encounter Closed Date Diagnosis/Indication Diagnosis SNOMED-CT Code Diagnosis ICD10 Code Diagnosis Note [id number] Wendy Cruz MD [facility] (Adult Med) [address] [place] [address] [id number] 0 01/18/2024 11:36:16 01/18/2024 13:04:52 Essential hypertension 58693783 I10 Screening for malignant neoplasm of prostate 063473892 Z12.5 Screening for malignant neoplasm of colon 558702569 Z12.11 Asthma 137434688 J45.90 9 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 Gastroesop hageal reflux disease without esophagitis 200858672 K21.9 [id number] Wendy Cruz MD [facility] (Adult Med) [address] [place] [address] [id number] 05/23/2024 10:44:58 05/23/2024 11:26:22 Essential hypertension 20079630 I10 Gastroesop hageal reflux disease without esophagitis 628628436 K21.9 Asthma 372945947 J45.90 9 [id number] Wendy Cruz MD [facility] (Adult Med) [address] [place] [address] [id number] 0 05/29/2024 09:38:15 05/29/2024 11:28:14 Adult health examination 059527579 Z00.00 Health Risk Assessment collected and reviewed Pneumococc al pneumonia 527435341 J13 [id number] Wendy Cruz MD [facility] (Adult Med) [address] [place] [address] [id number] 0 12/28/2024 12:16:23 12/28/2024 13:19:56 Body mass index 25-29 - overweight 094135828 Z68.25 Overweight 985214205 E66 .3 Administra tion of diphtheria, pertussis, and tetanus vaccine 539691076 Z23 Candidiasis of mouth 797 34999 B37.0 Granulomat ous hepatitis 57888670 K75.3 Essential hypertension 12914471 I10 Gastroesop hageal reflux disease without esophagitis 506436743 K21.9 Asthma 521442579 J45.90 9 [id number] Wendy Cruz MD [facility] (Adult Med) [address] [place] [address] [id number] 03/27/2025 11:49:49 03/27/2025 12:54:43 Overweight in adulthood with body mass index of 25 or more but less than 30 932257431 Z68.26 Overweight 241965255 E66 .3 Pulmonary embolism 50422 003 I26.99 Essential hypertension 86981643 I10 Anemia 002688647 D64.9 Health Concerns Section Related Observation LastModified by Organization Detai ls LastModified Time None Recorded Concern Status LastModified by Organization Details LastModified Time None Recorded Advance Directives Directive N: Payers Insurance Date Sequence Insurance Name Policy Number Policy Mejia Covered Member ID Mejia Member ID Guarantor Name 03/29/2025 2 [employer] (MEDICARE SUPPLEMENT) Joshua Wilkinson [id number] Joshua Wilkinson 03/29/2025 MEDICARE [place]: [facility] Joshua Wilkinson [id number] Joshua Wilkinson 03/29/2025 1 [place] Joshua Wilkinson [id number] Joshua Wilkinson 04/08/2025 2 [employer] (MEDICARE SUPPLEMENT) Joshua Wilkinson [id number] Joshua Wilkinson Notes Date Note Type Note Provider Name and Address Organization Details Recorded Time 01/18/2024 text/html With asthma hypertension hyperlipidemia GERD and granulomatous hepatitis comes into continue care his asthma is been doing fine no excessive albuterol usage hypertension no headache or dizziness hyperlipidemia does try to follow a low-fat diet granulomatous hepatitis has been stable no nausea vomiting not had any jaundice or abdominal pain needs a Cologuard and his GERD's been stable Wendy Cruz MD Attn: Accounting[address] [place], [address], [facility] 01/28/2024 22:03:23 05/23/2024 text/html follow up medica l problems asthma has been stable hypertension headache or dizziness GERD has been doing fine on pantoprazole Wendy Cruz MD Attn: [address] [place], [address], [facility] 05/23/2024 21:31:32 05/29/2024 text/html MAW 2Reported bypatient.Diet and Nutrition:healthy diet Fracture Risk:no sudden unexplained fractures;history of fractures Concentration and Memory:no decreased concentrating ability; no memory lapses or loss;forgetting words Speech/Motor difficulties:no speech difficulties; no difficulty expressing formulated concepts; no difficulty with fine manipulative tasks; no difficulty writing/copying; no slowed reaction time; does not knock things over when trying to pick them up Hearing:loss of hearing in one ear only(right ear) Vision:no vision problems Activities of Daily Living:able to bathe with limited or no assistance; able to contol urination and bowels; able to dress with limited or no assistance; able to feed self with limited or no assistance; able to get out of chair or bed with limited or no assistance; able to groom with limited or no assistance; able to toilet with limited or no assistance Instrumental Activities of Daily Living:able to do house work with limited or no assistance; able to grocery shop with limited or no assistance; able to manage medications with limited or no assistance; able to manage money with limited or no assistance; able to prepare meals with limited or no assistance; able to use the phone with limited or no assistance Falls Risk Assessment:no frequent falls while walking; no fall in the past year; no fall since last visit; no dizziness/vertigo Home Safety:reviewed sun protection; no unsafe aron hazzards; no unsafe stairs; working smoke/CO detectors; practicing 'safer sex'; good lighting in the home;fire arms;does not have hand bars in the bathroom/shower Wendy Cruz MD Attn: Accounting[address] [place], [address], [facility] 05/29/2024 23:35:53 12/28/2024 text/html He had COVID had has been a few days in the hospital doing better but he has developed some thrush asthma actually he is doing fine now GERD no nausea vomiting granulomatous hepatitis asymptomatic hypertension blood pressure is up a little bit today however at home he says it has been running good Wendy Cruz MD Attn: Accounting[address] [place], [address], [facility] 12/29/2024 14:58:01 03/27/2025 text/html Had some shortne ss of breath admitted to [facility] CTA was indeterminate for PE but discharged on Eliquis and he has pulmonary follow up. His COPD and has been breathing has been doing fine granulomatous hepatitis has been stable blood pressure doing fine not had any new interval developments or complaints Wendy Cruz MD Attn: Accounting[address] [facility], [place], [address], [place] [facility] 04/07/2025 16:59:50
--- OUTSIDE RECORDS SUMMARY | 2025-04-24 14:23 | XMS_ITS | Clinical Summary ---
Author Organization [facility] Address [address] [place] [address] Phone Care Team Providers Care Landscape Contractor Name Role Phone Chava Cruz MD Primary Care Provider [phone] Allergies No known active allergies Medications umeclidinium [...] on file Legal Sex Male 1:26 PM [employer] Gender Identity Not on file Sexual Orientation Not on file Last Filed Vital Signs Vital Sign Reading Time Taken Comments Blood Pressure 163/89 09/17/2020 1:26 PM [employer] Pulse 84 09/17/2020 1:26 PM [employer] Temperature - - Respiratory Rate 18 09/17/2020 1:26 PM [employer] Oxygen Saturation 95% 09/17/2020 1:26 PM [employer] Inhaled Oxygen Concentration - - Weight 96.6 kg (213 lb) 09/15/2020 2:24 PM [employer] Height 188 cm (6' 2) 09/15/2020 2:24 PM [employer] Body Mass Index 27.35 09/15/2020 2:24 PM [employer] Plan of Treatment Health Maintenance Due Date Last Done Comments DTAP/TDAP/TD VACCINES (1 - Tdap) 1972 COLORECTAL SCREENING 1998 Colorectal Cancer Screening 1998 FIT-DNA Q 3 years 1998 FIT/FOBT Q 1 year 1998 Flex Sig/CT Colonography Q 5 years 1998 ZOSTER VACCINE (1 of 2) 2003 RSV VACCINE (60+ or ) (1 - Risk 60-74 years 1-dose series) 2013 INFLUENZA VACCINE (#1) 2025 0, 07/12/2018, 07/25/2017, Additional history exists PNEUMOCOCCAL VACCINE 50+ YEARS Completed 1 11/17/2019, 07/07/2020, 08/16/2019 Insurance MEDICARE PART A AND B [facility] Care Teams Landscape Contractor Relationship Specialty Start Date End Date Chava Cruz MD [address] [place] [address] PCP - General Internal Medicine 09/15/20
--- OUTSIDE RECORDS SUMMARY | 2025-04-24 14:23 | XMS_ITS | Clinical Summary ---
Author Organization [facility] Address [address] [place] [address] Care Team Providers Care Fiscal Officer Name Role Phone Chava Cruz MD Primary Care Provider [phone] Source Comments [facility],non-owned Affiliates and Associated Physician Practices is amultiple site organization consisting of ambulatory clinics and hospital sitesin [place], [place], [place] and [place]. This disclosure is being madepursuant to the Care Everywhere program and may not contain all information available regarding this patient. Last updated 18.[facility] Allergies No known active allergies Medications * [...] season) 2024 DEPRESSION SCREENING 10/10/2024 INFLUENZA VACCINE (#1) 2025 0, 07/12/2018, 07/25/2017, Additional history exists Respiratory Syncytial [...] - 26 mg/dL 07/06/2020 4:45 AM CDT [facility] Creatinine 0.7 0.6 - 1.2 mg/dL 07/06/2020 4:45 AM CDT [facility] Sodium 135(L) 136 - 145 mmol/L 07/06/2020 4:45 AM CDT [facility] Potassium 4.4 3.5 - 4.5 mmol/L 07/06/2020 4:45 AM [facility] Comment:Hemolysis detected i n this specimen. Hemolysis is known to cause elevations in this analyte. Caution should be exercised in the interpretation of this result. Recommend repeat testing if clinically indicated. Chloride 99 98 - 107 mmol/L 07/06/2020 4:45 AM [facility] CO2 24 22 - 29 mmol/L 07/06/2020 4:45 AM [facility] Glucose 110 70 - 115 mg/dL 07/06/2020 4:45 AM [facility] Calcium 7.8(L) 8.4 - 10.2 mg/dL 07/06/2020 4:45 AM [facility] Protein Total 6.3 6.0 - 8.3 g/dL 07/06/2020 4:45 AM [facility] Comment:Hemolysis detected i n this specimen. Hemolysis is known to cause elevations in this analyte. Caution should be exercised in the interpretation of this result. Recommend repeat testing if clinically indicated. Albumin 3.7 3.4 - 5.0 g/dL 07/06/2020 4:45 AM [facility] Bilirubin Total 2.5(H) 0.2 - 1.2 mg/dL 07/06/2020 4:45 AM [facility] Alkaline Phosphatase 89 40 - 150 Units/L 07/06/2020 4:45 AM [facility] ALT 36 0 - 55 Units/L 07/06/2020 4:45 AM [facility] AST 61(H) 5 - 34 Units/L 07/06/2020 4:45 AM [facility] Comment:Hemolysis detected i n this specimen. Hemolysis is known to cause elevations in this analyte. Caution should be exercised in the interpretation of this result. Recommend repeat testing if clinically indicated. Anion Gap 16 8 - 18 07/06/2020 4:45 AM [facility] BUN/Creatinine Ratio 17 7 - 23 07/06/2020 4:45 AM [facility] Osmolality Calculated 280 270 - 300 mOsm/kg 07/06/2020 4:45 AM [facility] Albumin/Globulin Ratio 1.4 1.1 - 2.3 07/06/2020 4:45 AM [facility] eGFR >60 >60 mL/min/1. 73 m2 07/06/2020 4:45 AM CDT [facility] Blood BLOOD SPECIMEN / Unknown Venipuncture / Unknown 07/06/2020 3:30 AM CDT 07/06/2020 4:12 AM CDT Chidi Quezada MD LAB - CHEMISTRY ORDERABLES Final Result Performing Organization Address [facility]/State/ZIP Co de Phone Number [facility] [address] [place] [address], [facility] [phone] from Last 3 Months or Most Recently Relevant to Health Maintenance Insurance [employer] MED[employer] MEDICARE Advance Directives * Full Code (Latest Code Status on File) Date Activated Date Inactivated Comments 07/06/2020 11:20 AM 07/12/2020 2:07 PM Care Teams Fiscal Officer Relationship Specialty Start Date End Date Chava Cruz MD PCP - General Internal Medicine 07/06/20
--- OUTSIDE RECORDS SUMMARY | 2025-04-24 14:24 | XMS_ITS | Data Portability ---
Author Organization [place] [facility] [employer], Main Office Address [address] [place] [address] Care Team Providers Care Passenger Rate Clerk Name Role Phone WENDY CRUZ Primary Care Provider [phone] WENDY CRUZ Referring Provider Assessment Encounter Date Assessment Date Assessment LastModified by Organization Details LastModified Time 04/13/2023 04/13/2023 Will continue current therapy will follow-up in 4 months blood work been ordered [email or web address] Not available 04/13/2023 21:33:15 10/17/2023 10/17/2023 We will continue current therapy will follow-up in about 6 months states flu COVID RSV pneumonia up-to-date Not available 10/17/2023 21:43:07 11/10/2023 11/10/2023 Impression: Patient appears to have rotator cuff symptoms right shoulder. It is possible he may have a small full-thickness tear or partial thickness tear. It may immunization injection into his deltoid made his deltoid sore changing the kinematics of his shoulders a little bit precipitating impingement tendinitis or exacerbation of a pre-existing partial-thicknes s tear. I have discussed with him that approximately 30% of patients at age 70 have rotator cuff chronic degenerative tearing as a natural part of aging. I have explained that if he does have a rotator cuff tear, it is very possible we can get this to become asymptomatic with a course of physical therapy and I explained the rationale for physical therapy and restoring optimal kinematics and strengthening the scapular stabilizing musculature. The pain responded very well to a short course of steroids and I am going to give him prednisone 10 mg daily for 10 days followed by 5 mg daily for 10 days while he initiates physical therapy. I have discussed with him the option of cortisone shot I have advised against that at this stage. I explained that a can weaken the tendon and would not be ideal for an otherwise healthy individual with a repairable rotator cuff tear if he fails to improve with non operative measures. If he is not better in 6 weeks I would recommend obtaining an MRI scan of the shoulder to establish accurate diagnosis. I will see him back at that time. If he has any problems the meantime he will call. 30 minutes were spent total care this patient more than half the time spent in [id number] care. [email or web address] Not available 11/10/2023 10:22:15 12/15/2023 12/15/2023 HPI: patient returns. His right shoulder is doing much better. He took the prednisone and is still in therapy. He's having very minimal discomfort during the day. He is able to sleep at night without any symptoms. Physical exam patient has active elevation to 150, external rotation 80, internal rotation is to T 12. he has no pain with range of motion. He has excellent strength and abduction as well as external rotation. Impression: patient's right shoulder is doing much better. He is going to finish up with physical therapy and continue with his home exercise program. We will see him back as needed. [email or web address] Not available 12/15/2023 12:21:44 Plan of Treatment Reminders Order Date Submit Date Provider Last Modified By Organization Details Last Modified Time Details Appointments None recorded. Lab PSA, serum or plasma 2022 023 [facility], [address], [place], [address], 4 10:48:04 lipid panel, serum 2022 023 [facility], [address] , [place], [address], 3 12:03:33 CMP, serum or plasma 2022 023 [facility], [address], [place], [address], 4 10:48:04 CBC w/ auto diff 2022 023 [facility], [address], [place], [address], 3 12:03:34 Referral None recorded. Procedures None recorded. Surgeries None recorded. Imaging XR, shoulder 2023 024 [email or web address], [address], [place], [address], 4 11:27:23 Medication Orders None recorded. Patient TargetsNo targets recorded. Patient InstructionsNo instructions recorded. Reason for Referral None Reported. Results Created Date Observation Date Name Description Value Unit Range Abnormal Flag Note LastModifiedBy Organization Detail LastModifiedTime 11/10/19 24 XR, shoul steffany No observ ation record ed. [email or web address] [facility] [address], [place], [address], 11/10/2023 10:19:18 Result Notes None recorded. Problems Name Problem SNOMED Code Status Onset Date Resolution Date Notes Provider Name and Address Organization Details Recorded Time Benign prostatic hyperplasi a with outflow obstructio n 594356128 Active 2022 Not Available [facility] 4 06:16:07 Primary erectile dysfunctio n 393535207 Active 2022 Not Available [facility] 4 06:16:07 Pain of right shoulder joint 5225449331086 9100 Active 2023 ALEX Tariq null, MA [employer] [facility] [employer] 4 09:31:27 Impingemen t syndrome of right shoulder region 8178797944696 02 Active 2023 REGINA Bowles, [place] [facility] [employer] 4 10:34:06 Hyperchole sterolemia 90420189 Active Not Available [facility] 4 06:16:07 Asthma 322305031 Active Not Available [facility] 4 06:16:07 Gastroesop hageal reflux disease 797955755 Active Not Available [facility] 4 06:16:07 Osteoarthr itis of left knee joint 4826490505228 09 Active 2018 Not Available [facility] 4 06:16:07 Osteoarthr itis 031341149 Active Not Available [facility] 4 06:16:07 Pain of right knee joint 3451106983213 00 Active 2022 Not Available [facility] 4 06:16:07 Essential hypertensi on 38806032 Active Not Available [facility] 4 06:16:07 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 Procedures Surgical History Date Name Laterality Status Provider Name and Address Organization Details Recorded Time 07/10/20 total knee replacement completed Not Available [facility] 12/08/2022 03:14:37 implantation of penile prosthesis completed Not Available [facility] 12/08/2022 03:14:37 Imaging Results None recorded. Procedure Notes None recorded. Medical Equipment None Reported. Allergies No known drug allergies Medications Name Sig Start Date Stop Date Status Note LastModified by Organization Details LastModified Time celecoxib 200 mg capsule TAKE 1 CAPSULE DAILY 08/09 completed Not Available Not Available Not Available amoxicill in 500 mg capsule TAKE 4 CAPSULES ONE HOUR BEFORE APPOINTM ENT active Not Available Not Available No t Available nystatin 100,000 unit/mL oral suspensio n Take 5 mL 3 times a day by oral route as directed for 10 days. active Not Available Not Available No t Available prednison e 10 mg tablet 06/09 completed Not Available Not Available Not Available azithromy soumya 250 mg tablet TAKE 2 TABLETS BY MOUTH TODAY, THEN TAKE 1 TABLET DAILY FOR 4 DAYS DIRECTED 11/10 completed Not Available Not Available Not Available prednison e 20 mg tablet TAKE 2 TABLETS BY MOUTH EVERY DAY FOR 5 DAYS 11/10 completed Not Available Not Available Not Available fluoroura cil 5 % topical cream 11/25 completed Not Available Not Available Not Available prednison e 5 mg tablet TAKE 2 TABLETS BY MOUTH X 10 DAYS THEN TAKE 1 TABLET DAILY X 10 DAYS 12/14 completed Not Available Not Available Not Available amlodipin e 5 mg tablet TAKE 1 TABLET BY MOUTH EVERY DAY active Not Available Not Available No t Available aspirin 81 mg tablet,de layed release TAKE ONE TABLET TWICE DAILY . START DAY AFTER LAST ELIQUIS DOSE 12/11 completed Not Available Not Available Not Available tramadol 50 mg tablet 10/08 completed Not Available Not Available Not Available triamcino lone acetonide 0.1 % topical cream APPLY A THIN LAYER TO THE AFFECTED AREA(S) BY TOPICAL ROUTE DAILY 01/04 completed Not Available Not Available Not Available tamsulosi n 0.4 mg capsule TK 1 C PO QD 12/08 completed Not Available Not Available Not Available ciproflox acin 0.3 % eye drops 12/08 completed Not Available Not Available Not Available Kenalog 10 mg/mL suspensio n for injection In office injectio n administ ered by the provider 12/02 completed [facility]: [id number] 01-27 Not Available Not Available Not Available cephalexi n 500 mg capsule TK ALL 4 CS PO 30 TO 60 MINUTES PRIOR TO PROCEDUR E active Not Available Not Available No t Available pantopraz ole 40 mg tablet,de layed release TAKE 1 TABLET BY MOUTH EVERY DAY active Not Available Not Available No t Available oxycodone 5 mg capsule TK 1-2 C PO Q 4 H PRN P active Not Available Not Available No t Available lisinopri l 20 mg-hydroc hlorothia zide 25 mg tablet TAKE 1 TABLET BY MOUTH TWICE A DAY active Not Available Not Available No t Available diclofena c sodium 75 mg tablet,de layed release 06/09 completed Not Available Not Available Not Available mupirocin 2 % topical ointment 01/04 completed Not Available Not Available Not Available gabapenti n 100 mg capsule active Not Available Not Available Not Available oxycodone -acetamin ophen 7.5 mg-325 mg tablet 11/25 completed Not Available Not Available Not Available methylpre dnisolone 4 mg tablets in a dose pack 10/08 completed Not Available Not Available Not Available albuterol sulfate HFA 90 mcg/actua tion aerosol inhaler INHALE 2 PUFFS BY MOUTH EVERY 4 HOURS NEEDED 2022 active Not Available Not Available Not Avai lable Percocet 5 mg-325 mg tablet Take 1 tablet every 4 hours by oral route. 08/09 completed Not Available Not Available Not Available lisinopri l 40 mg tablet 10/08 completed Not Available Not Available Not Available amoxicill in 875 mg-potass ium clavulana te 125 mg tablet Take 1 tablet twice a day by oral route for 10 days. 11/25 completed Not Available Not Available Not Available Senna Plus 8.6 mg-50 mg tablet TAKE ONE CAPSULE TWICE DAILY TO PREVENT CONSTIPA TION . HOLD FOR LOOSE STOOLS 12/11 completed Not Available Not Available Not Available alfuzosin ER 10 mg tablet,ex tended release 24 hr TAKE 1 TABLET BY MOUTH EVERY DAY active Not Available Not Available No t Available Cialis 5 mg tablet TK 1 T PO ONCE D 06/09 completed Not Available Not Available Not Available Spiriva with [employer] r 18 mcg and inhalatio n capsules INHALE THE CONTENTS OF 1 CAPSULE ONCE A DAY 07/25 completed changed to Incruse per ins fomulary Not Available Not Available Not Available lidocaine (PF) 10 mg/mL (1 %) injection solution In office injectio n administ ered by the provider 10/19 completed [facility]: 0409-427 6-17 Not Available Not Available Not Available Symbicort 160 mcg-4.5 mcg/actua tion HFA aerosol inhaler TAKE 2 PUFFS BY MOUTH TWICE A DAY 10/17 completed Not Available Not Available Not Available ropivacai ne (PF) 5 mg/mL (0.5 %) injection solution In office injectio n administ ered by the provider 12/02 completed [facility] 43342-26 4-01 Not Available Not Available Not Available Xarelto 15 mg tablet 07/05 completed Not Available Not Available Not Available Xarelto 20 mg tablet TAKE ONE TABLET DAILY TO BE STARTED AFTER FINISHIN G THE XARELTO 15MG FOR 21 DAYS 07/25 completed Not Available Not Available Not Available Eliquis 2.5 mg tablet TAKE 1 TABLET EVERY 12 HOURS . FIRST DOSE 23 HOURS AFTER PROCEDUR E END TIME 08/15 completed Not Available Not Available Not Available [employer] Ellipta 62.5 mcg/actua tion powder for inhalatio n INHALE 1 PUFF BY MOUTH EVERY DAY active Not Available Not Available No t Available Breztri Aerospher e 160 mcg-9mcg- 4.8mcg/ac tuation HFA aerosol inhaler INHALE 2 PUFFS TWICE A DAY active Not Available Not Available No t Available Vitals Date Recorded Body height Body mass index (BMI) Body weight Body temperature Heart rate Systolic And Diastolic Provider Name and Address Organization Details Last Updated DateTime 4 177.8 cm 30 kg/m2 33424.8 1 g 97.3 [degF] 77 /min 134/82 mm[Hg] Swathi Calderón [facility] [employer] 4 15:21:18 Date Recorded Body height Provider Name an d Address Organization Details Last Updated DateTime 11/10/2023 177.8 cm Chayo Dial [facility] [employer] [facility] 11/10/2023 09:30:56 Date Recorded Body height Body mass index (BMI) Body weight Provider Name and Address Organization Details Last Updated DateTime 12/15/2023 177.8 cm 29.8 kg/m2 32712.21 g Chayo Dial [facility] [employer] 12/15/2023 12:09:33 Date Recorded Body height Body mass index (BMI) Body weight Oxygen saturation Oxygen saturation in Arterial blood by Pulse oximetry Heart rate Body temperature Provider Name and Address Organization Details Last Updated DateTime 3 177.8 cm 30.7 kg/m2 03747.7 7 g 94 % 94 % 80 /min 98.6 [degF] Obi Shah [facility] [employer] [facility] 3 09:32:19 Date Recorded Body height Body mass index (BMI) Body weight Body temperature Heart rate Systolic And Diastolic Provider Name and Address Organization Details Last Updated DateTime 3 177.8 cm 29.7 kg/m2 30608.6 2 g 97.9 [degF] 74 /min 142/84 mm[Hg] Swathi Calderón [facility] [employer] [facility] 3 16:10:22 Social History Question Answer Notes LastModified by Organizat ion Details LastModified Time Tobacco Smoking Status Never Smoker [facility] 11/10/2023 09:16:13 Do You Have An Advance Directive? No [id number] Information not available 12/08/2022 Are You Blind Or Do You Have Difficulty Seeing? No [email or web address] Information not available 11/10/2023 What Is Your Level Of Caffeine Consumption? Occasional [id number] Information not available 12/08/2022 How Much Tobacco Do You Chew? None [id number] Information not available 12/08/2022 In The 14 Days Before Symptom Onset, Have You Had Close Contact With A Laboratory-confi rmed COVID-19 While That Case Was Ill? No [email or web address] Information not available 11/10/2023 In The 14 Days Before Symptom Onset, Have You Had Close Contact With A Person Who Is Under Investigation For COVID-19 While That Person Was Ill? No [email or web address] Information not available 11/10/2023 Are You Deaf Or Do You Have Serious Difficulty Hearing? No [email or web address] Information not available 11/10/2023 What Type Of Diet Are You Following? REGULAR [id number] Information not available 12/08/2022 Which Illicit Or Recreational Drugs Have You Used? None [email or web address] Information not available 11/10/2023 What Is The Highest Grade Or Level Of School You Have Completed Or The Highest Degree You Have Received? [id number] [email or web address] Information not available 11/10/2023 Have There Been Any Changes To Your Family Or Social Situation? No [email or web address] Information not available 11/10/2023 What Is The Fluoride Status Of Your Home? Unknown [email or web address] Information not available 11/10/2023 Are There Any Guns Present In Your Home? Yes [email or web address] Information not available 11/10/2023 Do You Use Insect Repellent Routinely? No Information not available 11/10/2023 Where Do You Live? [facility] [email or web address] Information not available 11/10/2023 Do You Have A Medical Power Of Coiled Coil Inspector? No [email or web address] Information not available 11/10/2023 What Was The Date Of Your Most Recent Tobacco Screening? 10/17/2023 [email or web address] Information not available 11/10/2023 Have You Ever Been Counseled For Unhealthy Alcohol Use? No Information not available 11/10/2023 Do You Have Any Pets? Yes [email or web address] Information not available 11/10/2023 What Is Your Relationship Status? [id number] Information not available 12/08/2022 Do You Use Your Seat Belt Or Car Seat Routinely? Yes [email or web address] Information not available 11/10/2023 Do You Have Smoke And Carbon Monoxide Detectors In Your Home? Yes [email or web address] Information not available 11/10/2023 Are You Passively Exposed To Smoke? No [email or web address] Information not available 11/10/2023 Are There Any Smokers In Your House? No [email or web address] Information not available 11/10/2023 How Much Tobacco Do You Smoke? No [id number] Information not available 12/08/2022 What Types Of Sporting Activities Do You Participate In? None [email or web address] Information not available 11/10/2023 Do You Use Sunscreen Routinely? No [email or web address] Information not available 11/10/2023 Has Tobacco Cessation Counseling Been Provided? No Not Needed-ne tiffany Smoked [email or web address] Information not available 11/10/2023 Have You Recently Traveled Abroad? No Information not available 11/10/2023 Do You Have Difficulty Walking Or Climbing Stairs? No [email or web address] Information not available 11/10/2023 Do You Have Any Dietary Restrictions? No [email or web address] Information not available 11/10/2023 Sex: Male Functional Status Question Answer Note LastModified by Organizat ion Details LastModified Time Do you use any illicit or recreational drugs? No [email or web address] Information not available 11/10/2023 Do you or have you ever used any other forms of tobacco or nicotine? No [email or web address] Information not available 11/10/2023 What is your level of alcohol consumption? Occasional [id number] Information not available 12/08/2022 Do you or have you ever used smokeless tobacco? Never used smokeless tobacco MIGRATION.[id number] Information not available 12/08/2022 Do you have transportation difficulties? No Information not available 11/10/2023 Are you able to walk? YESWOREST [email or web address] Information not available 11/10/2023 Do you have difficulty doing errands alone? No [email or web address] Information not available 11/10/2023 Are you able to care for yourself? 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 No [email or web address] Information not available 11/10/2023 Do you or have you ever used e-cigarettes or vape? Never used electronic cigarettes [email or web address] Information not available 11/10/2023 What is your exercise level? Moderate [id number] Information not available 12/08/2022 Mental Status Question Answer Note LastModified by Organizat ion Details LastModified Time Do you feel stressed (tense, restless, nervous, or anxious, or unable to sleep at night)? [id number] [email or web address] Information not available 11/10/2023 Do you have difficulty concentrating, remembering or making decisions? No Information no t available 11/10/2023 Family History Relationship Description Onset Age of this Age Resolved Age Notes LastModified by Organization Details LastModified Time Father No current problems or disability [email or web address] Not available 04/2024 11:55:02 Mother No current problems or disability [email or web address] Not available 04/2024 11:55:02 Unspecified Relation Hypertensive disorder [id number] Not available 12/08/2022 03:14:41 Medical History Condition Response NERVE DISEASE N BLINDNESS N RHEUMATIC FEVER N KIDNEY STONES N BLADDER PROBLEMS N MRSA N OTHER # 1 N POLIO N LUNG DISEASE/DISORDER N RADIATION / CHEMOTHERAPY N COPD Y Other # 2 N BLOOD DISEASES N SURGERY N EAR OR HEARING PROBLEMS N MUMPS N BOWEL PROBLEMS N DEPRESSION (INCLUDING POST ) N STROKE/TIA N ULCERS N BENIGN PROSTATIC HYPERPLASIA N MEASLES N MYOCARDIAL INFARCTION N OBESITY N GERD/NAUSEA N ANEURYSM N URINARY/BLADDER/KIDNEY PROBLEMS N CORONARY ARTERY DISEASE (CAD) N ADDICTION CONCERNS N Impotence N ENDOMETRIOSIS N USE OF BLOOD THINNERS N SKIN PROBLEMS N GASTROINTESTINAL DISORDER N PERIPHERAL VASCULAR DISEASE N MUSCLE,JOINT OR BONE PROBLEMS N GASTROINTESTINAL BLEEDING N BLOOD CLOTS N ASTHMA Y CATARACTS N ERECTILE DYSFUNCTION N VARICOSITIES N GI PROBLEMS N Low Testosterone N INFERTILITY N AIDS/HIV N CHEMOTHERAPY / RADIATION N LIVER DISEASE N MALE HYPOGONADISM N HYPERTENSION Y Deficiency N ANXIETY DISORDER N BLOOD TRANSFUSION N ANEMIA/BLOOD DISORDER N CHRONIC EAR INFECTIONS N BRONCHITIS N TUBERCULOSIS N GLAUCOMA N FOOT PROBLEM N DIVERTICULITIS N SLEEP APNEA N CHICKENPOX N INFECTIOUS DISEASE N PROSTATE N HEART ARRHYTHMIA N INSOMNIA N HIGH CHOLESTEROL / HYPERLIPIDEMIA Y EYE PROBLEMS N HYPERTHYROIDISM N NEUROLOGICAL PROBLEMS N EDEMA N CHRONIC PAIN SYNDROME N HYPOTHYROIDISM N CONSTIPATION N CAROTID BLOCKAGE N BACK / NECK PROBLEMS N HAVE YOU BEEN HOSPITALIZED OR SEEN IN [facility] ER IN THE PAST YEAR ? N ATHEROSCLEROSIS N BREAST PROBLEMS N DIALYSIS N ECZEMA N OSTEOPOROSIS N ARTHRITIS Y APPENDICITIS N DIABETES, TYPE N BAD TEETH N ENT N HEARTBURN / REFLUX Y AUTISM SPECTRUM DISORDER (ASD) N HEPATITIS / LIVER DISEASE Y GOUT N SLEEP DISORDER N ALZHEIMER'S DISEASE N Brain Problems N DEMENTIA N HERPES N SEIZURES/EPILEPSY N HEADACHES/MIGRAINES N VASCULAR DISEASE N PACEMAKER N Blood Disorder N DIZZINESS N HEART DISEASE/HEART PROBLEMS N KIDNEY DISEASE N MULTIPLE SCLEROSIS N CANCER: SPECIFY N CARDIAC ARRHYTHMIA N ATRIAL FIBRILLATION N Gall Stones N PULMONARY EMBOLISM N AUTOIMMUNE DISEASE N Immunizations Vaccine Type Date Status Note Provider Nam e and Address Organization Details Recorded Time Respiratory syncytial virus (RSV) MAB, unspecified 3 completed Not Available [facility] 11/17/2023 01:26:09 SARS-COV-2 (COVID-19) vaccine, UNSPECIFIED 3 completed Not Available [facility] 11/17/2023 01:26:09 influenza, unspecified formulation 3 completed Not Available [facility] 11/17/2023 01:26:09 COVID-19, mRNA, LNP-S, PF, 100 mcg/0.5mL dose or 50 mcg/0.25mL dose 1 completed Not Available [facility] 11/17/2023 01:26:09 COVID-19, mRNA, LNP-S, PF, 100 mcg/0.5mL dose or 50 mcg/0.25mL dose 1 completed Not Available [facility] 11/17/2023 01:26:09 pneumococcal polysaccharide PPV23 0 completed Not Available [facility] 11/17/2023 01:26:09 Influenza, high-dose, quadrivalent, PF 0 completed Not Available [facility] 11/17/2023 01:26:09 Pneumococcal conjugate PCV 13 9 completed Not Available [facility] 11/17/2023 01:26:09 Influenza, high-dose, trivalent, PF 8 completed Not Available [facility] 11/17/2023 01:26:09 Influenza, split virus, quadrivalent, PF 7 completed Not Available [facility] 11/17/2023 01:26:09 Influenza, split virus, trivalent, preservative 4 completed Not Available [facility] 11/17/2023 01:26:09 Influenza, split virus, quadrivalent, PF 7 completed Not Available [facility] 11/17/2023 01:26:09 Past Encounters Encounter ID Performer Location Encounter Start Date Encounter Closed Date Diagnosis/Indication Diagnosis SNOMED-CT Code Diagnosis ICD10 Code Diagnosis Note [id number] Wendy Cruz MD [facility] [address] [address] 01/19/2021 00:00:00 01/19/2021 21:57:20 [id number] [facility] [address] [address] 03/10/2021 00:00:00 03/10/2021 15:02:31 [id number] [facility] [address] [place] [id number] 05/26/2021 00:00:00 05/26/2021 14:25:09 [id number] Wendy Cruz MD [facility] [address] [address] 06/10/2021 00:00:00 06/10/2021 23:51:04 [id number] Berlin Fernandez MD S_[facility] [address] 07/09/2021 00:00:00 07/09/2021 09:27:22 [id number] Wendy Cruz MD [facility] [address] [address] 10/19/2021 00:00:00 10/19/2021 23:00:18 [id number] Wendy Cruz MD [facility] [address] [facility] [address] 04/19/2022 00:00:00 04/25/2022 11:39:07 [id number] Adriel Camilo MD [facility] [address] [place] [address] 05/25/2022 00:00:00 05/25/2022 14:27:15 [id number] Mohsen Perez MD [facility] [address] [place] [phone] 1 06/10/2022 00:00:00 06/10/2022 21:43:42 [id number] Wendy Cruz MD [facility] Internal [facility] [address] [address] 1 10/12/2022 00:00:00 10/12/2022 23:33:39 [id number] Mohsen Perez MD [facility] [address] [place] [id number] 1 11/04/2022 00:00:00 11/04/2022 12:46:46 [id number] Berlin Fernandez MD [facility] [address] [phone] 9 11/25/2022 00:00:00 11/25/2022 12:47:10 [id number] Mohsen Perez MD [facility] [address] [place] [phone] 1 12/02/2022 00:00:00 12/02/2022 12:59:28 [id number] Mohsen Perez MD [facility] [address] [place] [id number] 1 12/30/2022 09:13:34 12/30/2022 09:43:13 Primary erectile dysfunction [id number] N52.9 s/p IPP. follow up in a year. [id number] Wendy Cruz MD [facility] Internal Med [facility] [address] [address] 1 04/13/2023 16:01:57 04/13/2023 16:48:20 Essential hypertension 93013150 I10 Screening for malignant neoplasm of prostate 351265546 Z12.5 Asthma [id number] J45.90 9 Benign pro static hyperplasia with outflow obstruction 778129401 N40.1 Hypercholesterolemia 136 02362 E78.00 [id number] Wendy Cruz MD [facility] Internal Med [address] [facility] [address] [place] [address] 10/17/2023 14:46:19 10/17/2023 16:24:28 Asthma 100594437 J45.909 Benign pro static hyperplasia with outflow obstruction [id number] N40.1 Essential hypertension 47533549 I10 Gastroesop hageal reflux disease 487514768 K21.9 Hypercholesterolemia 136 71021 E78.00 [id number] Berlin Fernandez MD [address] [phone] 11/10/2023 09:14:17 11/10/2023 10:40:16 Pain of right shoulder joint [id number] 5726273 M25.205 [id number] Berlin Fernandez MD [address] [id number] 12/15/2023 11:53:21 12/15/2023 12:34:06 Pain of right shoulder joint [id number] 1354142 M25.511 Health Concerns Section Related Observation LastModified by Organization Detai ls LastModified Time None Recorded Concern Status LastModified by Organization Details LastModified Time None Recorded Advance Directives Directive N: Payers Insurance Date Sequence Insurance Name Policy Number Policy Mejia Covered Member ID Mejia Member ID Guarantor Name 01/10/2025 1 [place] Joshua Wilkinson [id number] Joshua Wilkinson 01/10/2025 2 [employer] Joshua Wilkinson [id number] Joshua Wilkinson Notes Date Note Type Note Provider Name and Address Organization Details Recorded Time 12/30/2022 text/html s/p IPP. Satisfi ed with the results. Mohsen Perez MD [address] [facility], [address], [place], [address], [facility] 12/30/2022 09:48:15 04/13/2023 text/html hypertension no headache no dizziness. Asthma no cough wheeze or shortness of breath. BPH no outflow obstruction symptoms. Hyperlipidemia trying to follow a low-fat diet. Granulomatous hepatitis stable clinically Wendy Cruz MD [address], [address], [place], [address], [facility] 04/13/2023 21:33:34 10/17/2023 text/html hypertension no headache no dizziness. Asthma no cough wheeze or shortness of breath. BPH no outflow obstruction symptoms. Hyperlipidemia trying to follow a low-fat diet. Granulomatous hepatitis stable clinically Wendy Cruz MD [address], [address], [place], [address], [facility] 10/17/2023 21:43:25 11/10/2023 text/html patient is a 68-year-old gentleman who presents this time for evaluation of his right shoulder pain. This started spontaneously 90 days ago. He notes that coincidentally, 2 days prior to the onset of his symptoms he had an immunization shot for RSV. He thinks it has worsened a little bit over the last 3 months. It bothers him lifting a gal of milk or shaking as shaving cream can. It has been irritating him while shooting pool which he does on a weekly basis. Most importantly, it has been making it harder for him to fall asleep and stay asleep. He is not comfortable sleeping on either side. He finished a Medrol Dosepak that was initiated for an asthma attack finishing this 3 days ago and that did help his symptoms quite a bit. Last night though he did have mild pain again in the decided to keep the appointment. He has been taking Aleve twice daily for many years for generalized body aching. His past medical history is reviewed. 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 In 1984 he had elevated liver enzymes. He abstain from all alcohol for 9 months and his liver enzymes remained elevated so he had a liver biopsy that was inconclusive and was thought that he probably had granulomatous liver disease but then his enzymes return to normal and he has these checked every 4-6 months he has never had elevation since. Berlin Fernandez MD [address], [address], [place], [address], [place] [facility] 11/10/2023 10:22:27
--- NOTE | 2025-04-25 10:57 | WPDSIXMINUTE ---
Six Minute Walk Procedure Procedure Performed Pulmonary Stress Test (6 min walk) Six Minute Walk Six Minute Walk: This is a 6 minute walk test. The test was performed and interpreted in accordance with the 2014 ERS/ATS task force guidelines. Findings: The patient's resting room air oxygen saturation measured by pulse oximetry was 94%, the heart rate was 87 bpm, and the modified Gen dyspnea score was 1. Patient ambulated for 346 meters and oxygen saturation remained 91 to 92%. At the end of the study the heart rate was 109 bpm and the modified Gen dyspnea score was 3. The patient did not qualify for supplemental oxygen at rest or with ambulation. There are no prior studies for comparison.
--- NOTE | 2025-04-25 10:58 | P.PCNPFT_ITS ---
PFT Procedure Performed PFT Procedure Performed Spirometry with Pre/Post Bronchodilator Plethysmography (Lung Vol) Diffusing Cap (DLCO) Flow Vol Loop PFT Interpretation This is a pulmonary function test with pre and post-bronchodilator spirometry, plethysmography and diffusing capacity. The test was performed and results interpreted in accordance with the 2019 and 2005 ATS/ERS Task Force guidelines respectively using the Global Lung Function Initiative-2012 reference equations. Patient demonstrated good effort and cooperation. Reproducibility criteria were met. The quality of the pre bronchodilator spirometry maneuver was Grade A and post bronchodilator spirometry maneuver was Grade B. Findings: Spirometry: The contour the expiratory flow tracing demonstrates an oscillating or sawtooth pattern in 3 of 3 pre bronchodilator maneuvers and 0 of 3 post bronchodilator maneuvers. There is decreased maximal expiratory airflow at all lung volumes with a concave expiratory flow tracing. The contour the inspiratory flow tracing is normal. The pre bronchodilator FVC is 3.48 L, 72% predicted. T he pre bronchodilator FEV1 1.56, 43% predicted. The pre bronchodilator FEV1: FVC ratio is 45%. The post bronchodilator FVC is 3.66 L, representing a 5% increase. The post bronchodilator FEV1 is 1.90 L, 22% predicted. The post bronchodilator FEV1: FVC ratio is 52%. Plethysmography: The total lung capacity is 8.80 L, 112% predicted. The functional residual capacity is 5.00 L, 118% predicted. The residual volume is 4.58 L, 170% predicted. The residual volume: Total lung capacity ratio is 52%. Diffusing capacity: The diffusing capacity unadjusted for hemoglobin and carboxyhemoglobin is 19.5, 71% predicted. The diffusing capacity adjusted for alveolar volume is 3.54, 96% predicted. Impression: The contour the prebronchodilator expiratory flow tracing demonstrates a reproducible oscillating or sawtooth pattern. This is usually generated by air flow disturbances in the upper airway are from tremors of the respiratory muscles. This has been associated with sleep apnea, obesity, snorers without obstructive sleep apnea, upper airway injury, upper airway stenosis, tracheobronchomalacia, neuromuscular disorders with bulbar involvement, burn injury of the upper airway, diaphragmatic myoclonus, Parkinson's disease and herpes zoster of abdominal muscles. Clinical correlation is recommended. There is a severe obstructive abnormality. There is significant improvement af ter inhaling a single dose of albuterol. The increase in residual volume to total lung volume ratio is consistent with hyperinflation from an obstructive abnormality. The diffusing capacity unadjusted for hemoglobin and carboxyhemoglobin is mildly decreased and normalizes when adjusted for alveolar volume. There are no prior studies for comparison
== END 2025-04-24 14:14 | disposition home or self-care (01) ==
LOC: ANHPFT 14:18
PROVIDERS: PCP Internal Medicine; Visit Provider Internal Medicine Critical Care Medicine
DX: R94.2 Abnormal results of pulmonary function studies (principal); J44.89 Other specified chronic obstructive pulmonary disease
CPT/HCPCS: 94060; 94618; 94726; 94729